=== PATIENT | female | born 1955 | race Caucasian/White ===

== ENCOUNTER → 2017-12-19 10:46 | Outpatient (CLI) | payer OTHER, SELFPAY ==
[2017-12-19 12:41] LABS: Alanine Aminotransferase 24 IU/L (9-52); Albumin 3.9 g/dL (3.5-5.0); Albumin Globulin Ratio 1.6 (1.0-2.8); Alkaline Phosphatase 59 U/L (38-126); Aspartate Aminotransferase 22 IU/L (14-36); BUN Creatinine Ratio 16.7 (6-22); Bilirubin Total 0.5 mg/dL (0.2-1.3); Blood Urea Nitrogen 15 mg/dL (7-17); Calcium 10.2 mg/dL (8.4-10.2); Carbon Dioxide 36 mmol/L (22-32); Chloride 99 mmol/L (98-107); Estimated Glomerular Filt Rate > 60.0 mL/min (>60); Globulin 2.5 g/dL (1.7-4.1); Glucose 81 mg/dL (80-110); HEMOLYSIS < 15 (0-50); Potassium 5.2 mmol/L (3.4-5.1); Sodium 142 mmol/L (137-145); Total Protein 6.4 g/dL (6.3-8.2)
== END ==
PROVIDERS: Visit Provider Physician Assistant
DX: L91.0 Hypertrophic scar (principal); B35.1 Tinea unguium
CPT/HCPCS: 36415; 80053

== ENCOUNTER → 2018-03-16 11:51 | Outpatient (CLI) | payer OTHER, SELFPAY ==
[2018-03-16 12:40] LABS: C-Reactive Protein Quant < 0.5 mg/dL (<1.0)
[2018-03-16 12:41] LABS: Erythrocyte Sedimentation Rate 7 MM/HR (0-20)
== END ==
PROVIDERS: PCP Internal Medicine; Visit Provider Internal Medicine Rheumatology
DX: M79.18 Myalgia, other site (principal)
CPT/HCPCS: 36415; 85651; 86140

== ENCOUNTER → 2018-04-04 10:46 | Outpatient (CLI) | payer OTHER, SELFPAY ==
[2018-04-04 11:53] LABS: Erythrocyte Sedimentation Rate 8 MM/HR (0-20)
[2018-04-04 12:13] LABS: C-Reactive Protein Quant < 0.5 mg/dL (<1.0); Estimated Glomerular Filt Rate > 60.0 mL/min (>60)
== END ==
PROVIDERS: PCP Internal Medicine; Visit Provider Internal Medicine Rheumatology
DX: M79.18 Myalgia, other site (principal)
CPT/HCPCS: 36415; 82565; 85651; 86140

== ENCOUNTER → 2018-04-06 09:46 | Outpatient (CLI) | payer OTHER, SELFPAY ==
--- NOTE | 2018-04-06 | DI.MRI.S_ITS ---
PROCEDURE: MR SHOULDER RT WO/W CON INDICATIONS: IDIOPATHIC CHRONIC GOUT OF SHOULDER. Right shoulder pain radiating down arm TECHNIQUE: Noncontrast oblique coronal T1 spin echo and T2 fast spin echo with fat saturation, oblique sagittal T1 spin echo and T2 fast spin echo with fat saturation, axial T1 spin echo and T2 fast spin echo with fat saturation through the shoulder. Post-contrast oblique coronal, oblique sagittal, and axial T1 spin echo with fat saturation through the shoulder. COMPARISON: None. FINDINGS: Image quality: Excellent. Rotator cuff: There is tendinosis and moderate grade articular surface partial-thickness tear involving distal supraspinatus at its insertion on humeral head extending to the musculotendinous junction. Focal areas of full-thickness perforation involving the anterior fibers of the supraspinatus is also likely present. Tendinosis and low to moderate grade articular surface partial thickness involving distal infraspinatus is seen. Tendinosis and moderate grade partial-thickness involving superior to mid fibers of the subscapularis is seen. There is mild supraspinatus muscle atrophy. Bones and bursae: No suspicious bone marrow enhancement. No bone marrow contusions or fractures. Moderate acromioclavicular joint and glenohumeral joint osteoarthritic changes are seen with joint space narrowing and prominent marginal osteophyte formation compressing the musculotendinous junction of supraspinatus. Small to moderate amount of subacromial subdeltoid bursal fluid and glenohumeral joint fluid is seen. No gross bony erosive changes are noted. No intra-articular loose body is seen. Capsule and soft tissues: No suspicious soft tissue enhancement. In the absence of intra-articular contrast, there is suggestion of superior anterior labral tear at 12 to 2:00 position. The glenohumeral ligaments appear intact. The long head of the biceps tendon demonstrates normal location and morphology. The rotator interval appears normal, without fibrosis. The coracohumeral ligament is normal in thickness. IMPRESSION: 1. Tendinosis and moderate grade articular surface partial-thickness tear involving distal supraspinatus at its insertion on humeral head extending to musculotendinous junction. A focal full-thickness perforation involving most anterior fibers of distal supraspinatus is also likely present. Mild supraspinatus muscle atrophy. 2. Tendinosis and low-grade articular surface partial-thickness involving distal infraspinatus. Moderate grade partial-thickness tear involving the superior to mid fibers of distal subscapularis. 3. Moderate acromioclavicular joint and glenohumeral joint osteoarthritis. No fracture or dislocation. No gross bony erosive changes. Small amount of joint effusion, no gross loose body. 4. Suggestion of superior anterior labral tear at 12 to 2:00 position. Dictated by: Kaleb Irby M.D. on 04/06/2018 at 13:48 Approved by: Kaleb Irby M.D. on 04/06/2018 at 13:58
== END ==
PROVIDERS: PCP Internal Medicine; Visit Provider Internal Medicine Rheumatology
DX: M10.011 Idiopathic gout, right shoulder (principal); M25.511 Pain in right shoulder; M75.111 Incomplete rotator cuff tear or rupture of right shoulder, not specified as traumatic; M19.011 Primary osteoarthritis, right shoulder
CPT/HCPCS: 73223; A9579

== ENCOUNTER → 2018-07-12 10:59 | Outpatient (CLI) | payer OTHER, SELFPAY ==
--- NOTE | 2018-07-12 | DI.RAD.S_ITS ---
PROCEDURE: XR THORACIC SPINE 2V INDICATIONS: NECK PAIN TECHNIQUE: 3 views of the thoracic spine were acquired. COMPARISON: None. FINDINGS: Bones: No fractures or dislocations. No suspicious bony lesions. 12 pairs of ribs are noted, and appear intact where visualized. Soft tissues: No paravertebral stripe thickening. IMPRESSION: Mild degenerative disc disease along the thoracic spine but no fracture or subluxation is seen. No compression fracture is found that would indicate an old injury. Dictated by: Alexander Bruner M.D. on 07/12/2018 at 13:14 Approved by: Alexander Bruner M.D. on 07/12/2018 at 13:18
--- NOTE | 2018-07-12 | DI.RAD.S_ITS ---
PROCEDURE: XR CERVICAL SPINE 2V OR 3V INDICATIONS: NECK PAIN TECHNIQUE: 3 view(s) of the cervical spine were acquired. COMPARISON: None. FINDINGS: Bones: No fractures or dislocations to the T1 level. The lateral masses of C1 appear intact on the odontoid view. No suspicious bony lesions. Note is made of C4-5 and especially C5-6 degenerative disc disease with anterior and posterior projecting osteophytes. A mild to moderate degree of such degeneration is seen at C6-7 also. Soft tissues: No prevertebral soft tissue swelling. IMPRESSION: Mild to moderately severe degenerative disc disease is present from C4-C7, most pronounced at C5-6. No subluxation is associated. Dictated by: Alexander Bruner M.D. on 07/12/2018 at 13:13 Approved by: Alexander Bruner M.D. on 07/12/2018 at 13:14
== END ==
PROVIDERS: PCP Internal Medicine; Visit Provider Internal Medicine
DX: M50.321 Other cervical disc degeneration at C4-C5 level (principal); M51.34 Other intervertebral disc degeneration, thoracic region
CPT/HCPCS: 72040; 72070

== ENCOUNTER → 2018-08-30 12:31 | Outpatient (CLI) | payer OTHER, SELFPAY ==
--- NOTE | 2018-08-30 | DI.MG.S_ITS ---
BILATERAL DIGITAL SCREENING MAMMOGRAM 3D/2D WITH CAD: 08/30/2018 CLINICAL: Routine screening. Comparison is made to exams dated: 03/11/2017 mammogram, 03/27/2015 mammogram, and 06/14/2013 mammogram - [facility]. There are scattered fibroglandular elements in both breasts. Current study was also evaluated with a Computer Aided Detection (CAD) system. No significant masses, calcifications, or other findings are seen in either breast. There has been no significant interval change. IMPRESSION: NEGATIVE There is no mammographic evidence of malignancy. A 1 year screening mammogram is recommended. This exam was interpreted at Station ID: [id number]. NOTE: For mammograms, a report in lay terms will be sent to the patient. Approximately 15% of breast malignancies will not be visualized mammographically. In the management of a palpable breast mass, a negative mammogram must not discourage biopsy of a clinically suspicious lesion. Electronically Signed By: Myles kumar/crow:08/31/2018 12:28:01 letter sent: Normal Exam ACR BI-RADS Category 1: Negative [id number]
== END ==
PROVIDERS: PCP Internal Medicine; Visit Provider Internal Medicine
DX: Z12.31 Encounter for screening mammogram for malignant neoplasm of breast (principal)
CPT/HCPCS: 77063; 77067

== ENCOUNTER → 2019-12-06 11:17 | Outpatient (CLI) | payer OTHER, SELFPAY ==
--- NOTE | 2019-12-06 11:22 | DI.RAD.S_ITS ---
PROCEDURE: XR FEMUR LT MIN 2V INDICATIONS: left hip pain TECHNIQUE: 4 views of the femur were acquired. COMPARISON: None. FINDINGS: Bones: No fractures or dislocations. No suspicious bony lesions. Moderate left hip joint degeneration. Lower lumbar spondylosis. Soft tissues: No suspicious soft tissue calcifications or masses. IMPRESSION: Moderate left hip joint degeneration Dictated by: Sanchez Olguin M.D. on 12/06/2019 at 14:11 Approved by: Sanchez Olguin M.D. on 12/06/2019 at 14:12
[2019-12-06 12:19] LABS: Alanine Aminotransferase 19 IU/L (<35); Albumin 3.9 g/dL (3.5-5.0); Albumin Globulin Ratio 1.5 (1.0-2.8); Alkaline Phosphatase 53 U/L (38-126); Aspartate Aminotransferase 27 IU/L (14-36); Bilirubin Total 0.4 mg/dL (0.2-1.3); Blood Urea Nitrogen 20 mg/dL (7-17); Calcium 9.2 mg/dL (8.4-10.2); Carbon Dioxide 34 mmol/L (22-32); Chloride 105 mmol/L (98-107); Estimated Glomerular Filt Rate > 60.0 mL/min (>60); Globulin 2.6 g/dL (1.7-4.1); Glucose 82 mg/dL (80-110); HEMOLYSIS < 15 (0-50); Potassium 4.1 mmol/L (3.4-5.1); Sodium 139 mmol/L (137-145); Total Protein 6.5 g/dL (6.3-8.2)
== END ==
PROVIDERS: PCP Registered Nurse; Referring Provider Registered Nurse; Visit Provider Registered Nurse
DX: M25.552 Pain in left hip (principal); M16.12 Unilateral primary osteoarthritis, left hip; E03.9 Hypothyroidism, unspecified; F32.9 Major depressive disorder, single episode, unspecified
CPT/HCPCS: 36415; 73552; 80053; 84443

== ENCOUNTER → 2020-02-01 12:01 | Outpatient (CLI) | payer OTHER, SELFPAY ==
[2020-02-01 13:20] LABS: Add Manual Diff / Slide Review NO; Basophils Absolute Auto 100 /uL (0-100); Basophils Percent Auto 0.8 % (0-2); Eosinophils Absolute Auto 300 /uL (0-450); Eosinophils Percent Auto 3.5 % (2-4); Hematocrit 39.2 % (36-46); Hemoglobin 13.1 g/dL (12.0-16.0); Lymphocytes Absolute Auto 2000 /uL (1100-4500); Lymphocytes Percent Auto 27.7 % (25-40); Mean Corpuscular HGB Conc 33.5 % (30-36); Mean Corpuscular Hemoglobin 31.2 PG (26-34); Mean Corpuscular Volume 93.1 fL (80-100); Monocytes Absolute Auto 600 /uL (0-900); Neutrophils Absolute Auto 4300 /uL (1500-7000); Platelet Count 258 X10^3/uL (150-400); Red Blood Cell Count 4.21 X10^6/uL (4.0-5.2); Red Cell Distribution Width 13.3 % (11.6-14.8); White Blood Cell Count 7.2 X10^3/uL (4.5-11.0)
[2020-02-01 13:33] LABS: Hemoglobin A1C% w Est Avg Glu 5.6 % (4.0-6.0)
[2020-02-01 13:37] LABS: BUN Creatinine Ratio 16.9 (6-22); Blood Urea Nitrogen 15 mg/dL (7-17); Calcium 9.1 mg/dL (8.4-10.2); Carbon Dioxide 32 mmol/L (22-32); Chloride 105 mmol/L (98-107); Estimated Glomerular Filt Rate > 60.0 mL/min (>60); Glucose 85 mg/dL (80-110); HEMOLYSIS < 15 (0-50); Potassium 4.5 mmol/L (3.4-5.1); Sodium 139 mmol/L (137-145)
== END ==
PROVIDERS: PCP Registered Nurse; Referring Provider Orthopaedic Surgery Adult Reconstructive Orthopaedic Surgery; Visit Provider Orthopaedic Surgery Adult Reconstructive Orthopaedic Surgery
DX: Z01.818 Encounter for other preprocedural examination (principal); Z01.812 Encounter for preprocedural laboratory examination; R73.9 Hyperglycemia, unspecified
CPT/HCPCS: 36415; 80048; 83036; 85025; 93005

== ENCOUNTER → 2020-02-23 13:19 | Outpatient (CLI) | payer OTHER, SELFPAY ==
[2020-02-23 14:41] LABS: COVID19 -Nasal RAPID Negative (Negative)
== END ==
PROVIDERS: PCP Registered Nurse; Visit Provider Nurse Practitioner
DX: Z11.59 Encounter for screening for other viral diseases (principal)
CPT/HCPCS: 87635

== ENCOUNTER 2020-02-25 09:10 | Day surgery (SDC) | payer OTHER, SELFPAY ==
[2020-02-14 11:56] VITALS: BMI 28.8
[2020-02-25] VITALS (22 sets, daily range): BP systolic 83–125; BP diastolic 46–85; PULSE 70–93; RESP 12–20; TEMP 35.1–37.2; O2SAT 97–100; BMI 28.8
--- NOTE | 2020-02-25 | DI.RAD.S_ITS ---
PROCEDURE: XR HIP LT 1V INDICATIONS: INNER OP HIP TECHNIQUE: Fluoroscopic images were obtained during an operative procedure and submitted for interpretation following the completion of the procedure. COMPARISON: [facility], , XR PELVIS 1-2V, 02/25/2020, 13:45. FINDINGS: These fluoroscopic images were performed for intraoperative localization. On these images, left hip arthroplasty hardware is seen. Please correlate with intraoperative findings. IMPRESSION: Normal intraoperative examination. Dictated by: Conrad Andres M.D. on 02/25/2020 at 14:53 Approved by: Conrad Andres M.D. on 02/25/2020 at 14:55
--- NOTE | 2020-02-25 06:00 | DI.RAD.S_ITS ---
PROCEDURE: XR PELVIS 1-2V INDICATIONS: post op films TECHNIQUE: 1 view of the lower pelvis acquired. COMPARISON: None. FINDINGS: Bones: Patient is status post left hip arthroplasty, with hardware components in expected positions. The hip joint appears congruent. The visualized bony structures appear intact. Soft tissues: Overlying postoperative changes are noted. No suspicious soft tissue densities. IMPRESSION: Expected appearance of left hip arthroplasty. Dictated by: Patti Ivan M.D. on 02/25/2020 at 14:05 Approved by: Patti Ivan M.D. on 02/25/2020 at 14:06
[2020-02-25] MEDS: PREGABALIN 75 MG CAPSULE PO (10:02)
[2020-02-25] MEDS: CELECOXIB 200 MG CAPSULE PO (10:02)
[2020-02-25] MEDS: ACETAMINOPHEN 325 MG TABLET 975 MG PO (10:02)
[2020-02-25] MEDS: LACTATED RINGERS 1,000 ML 42 ML IV ×2 (10:02→11:31)
--- NOTE | 2020-02-25 10:18 | PM.PREOP ---
Pre-operative Note COVID-19 COVID-19 status: Negative Result date/Date tested (Pos, Neg/Pending): 02/23/20 Interval Note History & Physical reviewed/Exam performed by Physician: Yes Changes to H&P: No H&P completed within 30 days and has changed as indicated here:: Plan for left anterior LEONCIO
[2020-02-25] MEDS: CEFAZOLIN 2 GM/100 ML FROZ.PIGGY IV ×2 (10:49→19:38)
[2020-02-25] MEDS: TRANEXAMIC ACID 1,000 MG VIAL 1000 MG INJ ×2 (11:11→12:23)
--- NOTE | 2020-02-25 11:36 | SUR.OPER ---
Supine on padded [place] table with bilateral legs secured in padded positioning boots and suspended in positioning spars, operative leg in traction per surgeon. Head on one pillow. Arm on non-operative side secured on padded armboard <90 degrees abduction. Arm on operative side padded and resting across chest then secured with tape over sheet. Padded perineal post in place per surgeon.
[2020-02-25] MEDS: ROPIVACAINE 0.5% PF 5 MG/ML 20ML VIAL 60 ML INJ (11:43)
[2020-02-25] MEDS: MORPHINE 4 MG/ML INJ INJ (11:44)
[2020-02-25] MEDS: KETOROLAC 30 MG/ML VIAL IV (11:44)
[2020-02-25] MEDS: SODIUM CHLORIDE IRRIG SOLUTION 250 ML, POVIDONE-IODINE SPONGE STICKS 1 APPLIC IRR (12:26)
--- NOTE | 2020-02-25 12:43 | PM.OP.1 ---
Operative Date/Time/Diagnoses Date of procedure: 02/25/20 Time of procedure: 12:43 Pre-op diagnosis: right hip OA Post-op diagnosis: same Procedure & Clinicians Procedure: right anteriot LEONCIO Same procedure as scheduled: Yes Indications: Right hip osteoarthritis resistant to further conservative care Surgeon: Javier Nielsen Manager Program: John Neil Anesthesia Type: Spinal and Sedation Operative Notes Findings: Left hip osteoarthritis with medial osteophyte Closure Type: primary Prosthetic devices, grafts, tissues, transplants, or devices: Vivas and nephew 50 mm R3 cup 2x 25mm screws 50 mm x 32 mm neutral acetabular liner Size 7 standard offset anthology stem 32 mm +4 Biolox head Estimated Blood Loss (mL): 350 Procedure in detail: Patient was met in the preoperative holding area where the site and side of surgery were marked by . Informed consent had been reviewed and signed in clinic but was also reviewed in the preop holding area. All last minute questions were answered. Patient was then brought back into the operating room where she was transferred onto the [place] table after receiving a spinal anesthetic. Both feet were then placed in well-padded on the table boots and the left lower extremity was then prepped and draped in normal sterile fashion. A surgical time-out was performed verifying the site and side of surgery as well as the name of the patient. A 6 cm long incision starting approximately 2 cm distal and 1 cm lateral to the ASIS was made in the skin aiming towards the fibular head with a 10. Blade. Electrocautery was then used to dissect down to the level of the tensor fascia. A new 10. Blade was then used to incise the tensor fascia. A Allis clamp was placed on the medial leaflet of the tensor fascia. The tensor muscle itself was then reflected laterally and a Meyerding was used to retract the rectus femoris medially. This gave us good exposure to the ascending circumflex femoral vessels which were coagulated. A Cobra was then placed over the superior aspect of the femoral neck and a 2nd Cobra was placed into the inferior aspect of the femoral neck. A bent Hohmann was then placed over the anterior lip of the acetabulum giving us good capsular exposure. An inverted T-shaped capsulotomy was then performed. FiberWire stitch was placed in the superior and inferior leaflet and cobras were then placed intracapsularly. This gave us good femoral neck exposure. A reciprocating saw was then used to make the femoral neck cut the head was then removed using a corkscrew. The soft tissue protector sleeve was then placed into the wound and retractor was then replaced to give us good acetabular exposure. A [place] blade was then used to remove the labrum followed by electrocautery used to remove the pulp in our. I began reaming with a 42 mm Reamer to medialized down to the base of the colloid fossa. At this point fluoroscopy was brought in and subsequent reaming was performed under fluoroscopic guidance upsizing by 2s as we went until we got to a size 48 mm Reamer which seemed to have good fit then reamed 1 more to 49 and selected a 50 mm R3 cup. This was impacted into place under fluoroscopic guidance and 2 screws were then placed. The neutral offset 50 mm x 32 mm polyethylene liner was then impacted into place and the patient was used to confirm that all tabs were flushed with the acetabular rim. At this point we turned our attention the femoral side the femur was brought into neutral rotation and a femoral elevator hook was placed on the posterior aspect of the femur the femur was then externally rotated to 120? extended to the floor and adducted. A Orozco retractor was then placed over the calcar and a bent Hohmann was placed over the superior aspect of the superior leaflet of the capsulotomy the capsule was then released from the inner portion of the greater trochanter giving us good exposure of the short external rotators. A large single prong retractor was then placed over the greater trochanter a partial release of the short external rotators was performed. We then began with a canal finer followed by chong [place] and then we began broaching starting with a size 1 and going up by 1 until we got to a size 6. Then placed a standard offset neck with a 32+ 0 head and reduced the hip the hip was stable to 120? of external rotation as well as 90? of external rotation extension to the floor. Fluoroscopy was brought in to confirm leg lengths. We appeared 5-6 mm short on operative side. Also clear that we filled up 1 stem size on the femoral side. The hip was then reduced the trial components were then removed and I broach to a size 7. I then selected a size 7 standard offset anthology stem this was then impacted into place. A 30 2+4 Biolox head was then selected and placed onto the trunnion malleted into place. The hip was then reduced a final time and again found to be stable through range of motion. Local anesthetic was then infiltrated into the capsulotomy as well as the periarticular soft tissues. Betadine solution was then allowed to soak it in the wound while final fluoroscopic images were taken the Betadine solution was then lavage away with copious normal saline. I then closed the capsulotomy with a running Ethibond suture in the FiberWire tag sutures were then removed. The tensor fascia was then repaired with an 0 Vicryl in running locking fashion followed by 2 Vicryl in the subcutaneous layer followed by 3-0 Stratafix and Aquacel dressing. Complications: none Post-operative Condition: stable Disposition: PACU Plan for aftercare: Weightbearing as tolerated left lower extremity, aspirin 81 mg b.i.d. for 6 weeks for DVT prophylaxis, 24 hours postop antibiotics
[2020-02-25] MEDS: LACTATED RINGERS 1,000 ML 125 ML IV ×2 (14:08→23:03)
--- NOTE | 2020-02-25 14:26 | PC.NURSE ---
Patient alert, oriented denies pain and nausea. CMS+ LLE, dressing intact. Oriented to room and call light. Last void was at 1000 before surgery.
[2020-02-25] MEDS: ACETAMINOPHEN 325 MG TABLET 650 MG PO ×2 (14:40→22:18)
[2020-02-25 15:37] LABS: Add Manual Diff / Slide Review NO; Basophils Absolute Auto 100 /uL (0-100); Basophils Percent Auto 0.4 % (0-2); Eosinophils Absolute Auto 300 /uL (0-450); Hematocrit 33.4 % (36-46); Hemoglobin 10.9 g/dL (12.0-16.0); Lymphocytes Absolute Auto 2100 /uL (1100-4500); Lymphocytes Percent Auto 15.7 % (25-40); Mean Corpuscular HGB Conc 32.7 % (30-36); Mean Corpuscular Hemoglobin 30.7 PG (26-34); Monocytes Absolute Auto 1000 /uL (0-900); Monocytes Percent Auto 7.2 % (3-14); Neutrophils Absolute Auto 10000 /uL (1500-7000); Neutrophils Percent Auto 74.7 % (50-75); Platelet Count 238 X10^3/uL (150-400); Red Blood Cell Count 3.55 X10^6/uL (4.0-5.2); Red Cell Distribution Width 13.4 % (11.6-14.8); White Blood Cell Count 13.4 X10^3/uL (4.5-11.0)
--- NOTE | 2020-02-25 16:48 | PT-IP ANOTE ---
Called Nursing regarding performing PT Eval at 1648. Nursing stated pt has been symptomatic and hypotensive in sitting, with BP around 90/50. Nurse and therapist in agreement to hold off on eval for tonight.
[2020-02-25] MEDS: DOCUSATE 100 MG CAPSULE PO (22:18)
[2020-02-25] MEDS: ASPIRIN EC 81 MG TABLET PO (22:18)
--- NOTE | 2020-02-25 23:38 | PC.NURSE ---
Evening note: Merlene had a good night, denies pain to LLE, rohit remains CDI. At 1530 reported dizziness when she sat up, resolving after she laid flat. Refused dinner at 1700, then at 1930 ate most of a vegatable plate. While eating meal I was talking with her and after she took bite of food had spontaneous emesis of approx 200 ml. Afterward emesis she denied any nausea. Still no void. Bladder scan at 1944 = 118 ml. [place] [facility] [place], while sitting up said I'm going to be sick, had small amt of emesis at that time. Denies dizziness upon standing or transfering back to bed. BP still 90's/50's. Still no void, bladder scan = [address] Yancey of patient's anuria and bladder scan results, no new orders given.
--- NOTE | 2020-02-26 01:29 | PC.NURSE ---
Addendum entered by Liza Camarillo R.N. 02/26/20 05:55: States pain is achy 10 this morning so medicated with Oxycodone and ice applied to hip. Did urinate earlier 450cc. Addendum entered by Liza Camarillo R.N. 02/26/20 03:39: Up to BSC with walker and 1 assist; moving well. Once sitting on commode became nauseated and had approx 75cc emesis; medicated with Zofran. Original Note: 0058 patient assessed. Is alert and oriented. Breath sounds CTA with RA sat of 98%. HRR. Denies nausea but did have nausea/emesis on previous shift. BT present but denies flatus as yet. Has not voided since return from surgery but last bladder scan at 2235 showing only 243cc in bladder and patient denies feeling urge to void. Is able to turn with minimal assist. Gait not assessed but was reportedly up to BSC on previous shift with walker and 1 assist. CMS is intact. Aquacel dressing to anterior left hip is CDI. Wearing bilateral calf SCD's. Fall risk score is moderate and bed alarm is activated. Denies pain at this time.
[2020-02-26] MEDS: CEFAZOLIN 2 GM/100 ML FROZ.PIGGY IV (02:44)
[2020-02-26] MEDS: ONDANSETRON 4 MG/2 ML INJ IV (03:37)
[2020-02-26 03:50] VITALS: BP 103/62; PULSE 82; RESP 16; TEMP 36.5; O2SAT 100
[2020-02-26] MEDS: LEVOTHYROXINE 100 MCG TABLET PO (05:53)
[2020-02-26] MEDS: OXYCODONE IR 5 MG TABLET PO (05:53)
[2020-02-26 05:57] LABS: Hematocrit 29.6 % (36-46); Hemoglobin 9.9 g/dL (12.0-16.0)
[2020-02-26] MEDS: LACTATED RINGERS 1,000 ML 125 ML IV (06:43)
--- NOTE | 2020-02-26 07:32 | PM.PNPO.1 ---
Subjective Subjective Date Patient Seen: 02/26/20 Time Patient Seen: 07:32 Interval history: POD #1 s/p left total hip arthroplasty with Dr. Nielsen. Patient had significant vomiting after surgery whenever she would sit up. She is feeling better this morning. She has not been up therapy. Pain is well controlled. Exam Vital Signs (past 8 hours): - 02/25/20 23:55 02/26/20 03:50 Temperature 98.9 F 97.7 F Pulse Rate 74 82 Respiratory Rate 12 16 Blood Pressure 104/67 103/62 Pulse Oximetry 98 100 Oxygen Delivery Method Room Air Oxygen Flow Rate 0 Narrative Exam Narrative: Patient lying in bed no acute distress. She is alert and oriented x3. Calves are soft, compressible nontender bilaterally. SCDs on and functioning. Dressing on left hip is CDI. She is able to actively dorsiflex plantar flex. Sensation intact light touch throughout bilateral lower extremities. Dorsalis pedis pulses 2+. Objective Labs Result Diagrams: 02/26/20 05:43 Labs: Laboratory Results - last 24 hr 02/25/20 02/26/20 15:29 05:43 WBC 13.4 H RBC 3.55 L Hgb 10.9 L 9.9 L Hct 33.4 L 29.6 L MCV 94.0 MCH 30.7 MCHC 32.7 RDW 13.4 Plt Count 238 Neut % (Auto) 74.7 Lymph % (Auto) 15.7 L [place] % (Auto) 7.2 Eos % (Auto) 2.0 Baso % (Auto) 0.4 Neut # (Auto) 38297 H Lymph # (Auto) 2100 [place] # (Auto) 1000 H Eos # (Auto) 300 Baso # (Auto) 100 PFSH Medical History Concussion (2015) Easy bruisability Hypothyroidism Ocular rosacea Osteoarthritis Surgical History History of tonsillectomy [place] teeth removed Family History Mother Congestive heart failure Father Aneurysm Alcoholism Social History household members: significant other Smoking Status: Former smoker alcohol intake: former Assessment & Plan Post-op Postoperative Procedures: Procedures Operation Date: 02/25/20 10:45 Actual Procedures Side Surgeon p Total Hip Arthroplasty/Anterior Approach Left Javier Nielsen MD Patient will mobilize with physical therapy today. She will likely need Zofran for home. Continue current pain control. If patient is mobilizing safely with adequate pain control she can go home today.
[2020-02-26 08:16] VITALS: BP 93/73; PULSE 86; RESP 16; TEMP 36.3; O2SAT 100
[2020-02-26] MEDS: ASPIRIN EC 81 MG TABLET PO (08:16)
[2020-02-26] MEDS: buPROPion XL 150 MG TAB 300 MG PO (08:16)
[2020-02-26] MEDS: HYDROCODONE/ACET 5/325 TABLET 1 TAB PO ×2 (08:16→11:27)
[2020-02-26] MEDS: CITALOPRAM 10 MG TABLET 40 MG PO (08:16)
[2020-02-26] MEDS: DOCUSATE 100 MG CAPSULE PO (08:16)
[2020-02-26] MEDS: ACETAMINOPHEN 325 MG TABLET 650 MG PO (08:16)
[2020-02-26] MEDS: INFLUENZA VACCINE 0.5 ML SYRINGE IM (08:17)
[2020-02-26] MEDS: FLUOROMETHOLONE ACETATE 1 EACH EYE-BOTH (08:18)
--- NOTE | 2020-02-26 08:29 | PC.NURSE ---
Addendum entered by Shaylee Wong R.N. 02/26/20 13:22: Went over dc instructions and medications with patient, rx given. Questions answered. Patient taken via WC to vehicle driven by spouse, patient had all belongings. Original Note: Patient alert,oriented rates pain to left hip 5/10. Given 1 tab hydrocodone. Patient up to BSC to void, voided 450cc. No nausea or emesis with ambulation. Ate 50% of meal.
[2020-02-26 08:45] VITALS: PULSE 65; RESP 16; O2SAT 100
--- NOTE | 2020-02-26 08:58 | CM.DANOTE ---
DCP/Assessment: Reviewed chart. Patient is a 64yr old female admitted to [facility] for elective left LEONCIO performed on 02-[address] Nielsen. Patient currently without PCP. Patient previously seen at [facility] before they closed. Primary payor is 1)[facility]. Met with patient explained CM/SW role. Patient reports that she hopes to d/c home later today. Patient reports that she has all needed DME in the residence. Patient planning to do outpatient therapy at [facility] beginning next week. Therapy evaluation currently pending. P: Anticipate home today. LUCERO Michaels Discharge Planning/Care Management CM Discharge Assessment Start: 02/26/20 08:54 Freq: Status: Active Protocol: Document 02/26/20 08:55 KJS (Rec: 02/26/20 08:58 KJS [id number]) Discharge Planning Assessment Assigned Fare Register Repairer LUCERO Michaels Contact Information Jaylan Edmondson (significant other) # [phone] Advance Directives? No History Provided By Patient,Medical Record Prior Living Arrangements House Household Members significant other Type of transporation used prior to Drives own vehicle admit Independent with ADL's Yes Is patient alert and oriented? Yes Caregiver for Another No DME Already Rented / Owned FWW / Walker,Cane Patient/Family Preference OP PT Therapy Barriers to Discharge No Discharge Plan Home Transportation Arrangement Family/significant other can provide transport. Referrals Initiated None needed Whiteboard Updated in Patient Room with Yes name and ext. # of Fare Register Repairer Review Status In Process Next Review Type Continued Stay Review Pre-Anesthesia Assessment Start: 02/14/20 11:56 Freq: Status: Complete Protocol: Document 02/14/20 11:56 CAB (Rec: 02/14/20 12:36 CAB [id number]) Pre-Anesthesia Assessment Patient Information Reviewed Via Phone Assessment Assessment Completed With Patient Diagnostic Results BMP/CMP,CBC,EKG Comment Labs/EKG @ [facility], COVID pt needs to call to schedule Primary Care Provider Prasanna Amado Seen Specialist in Last 12 Months Yes Specialist Seen Orthopedist Primary Language Divehi Livestock Nutrition Territory Manager Required No Height 160.02 cm Weight 73.936 kg Body Mass Index (BMI) 28.8 Hearing Ability Normal Visual Assist Glasses Dentition Type Teeth, Natural Present Barriers to Learning None Hx Anesthesia Reactions No Hx Family Anesthesia Reaction No Hx Malignant Hyperthermia No Hx Blood Transfusions No Anesthesia Review Requested No alcohol intake former Smoking Status Former smoker Tobacco type cigarettes how long ago did patient quit smoking Quit 1994 Substance Use Type marijuana Comment Pt advised not to smoke marijuana 24 hours prior to surgery Pain Present Pain Reported Musculoskeletal Symptoms Abnormal Gait,Arthralgias, Difficulty Walking,Joint Pain, Myalgias History of Falling (Recent or History of Yes ) Patient is completely paralyzed or No completely immobile Mental Status Oriented to own ability Is patient on oxygen? No Does patient have MENDEZ/SOB No Hx Sleep Apnea No Currently Taking a Beta Sydni No Can You Climb a Flight of Stairs Without Yes SOB Hx Chest Pain No Hx SOB No Hx Syncope or Dizziness No Anti-Coagulant Therapy No Has a Nurses' Association Executive Director No Cardiac Testing No Hx Pacemaker/ICD No Pacemaker Rep Required? No Cardiac Clearance Received Not Applicable Diet Type At Home Regular dysphagia No Gastrointestinal Symptoms Constipation Urinary Catheter Present No Hx Urinary Self Catheterization No Diabetes No Patient No Lactating No Hx Drug Resistant Organism No Presence of External or Internal Medical No Devices Have you had any close contact with No someone diagnosed with COVID-19? Marital Status Single Lives With significant other Prior Living Arrangements House Number of Floors (Floors) Two Floors Support System Significant Other Does the Patient Have Assistance After Yes Surgery Patient Discharge Plan Description Return Home Comment Pt advised overnight length of stay per surgeon Feels Safe in Current Environment Yes Been Physically Hurt or Threatened By a No Person in Current Environment Do you have thoughts of harming yourself None or others? Are you currently considering suicide? No Do you have a plan to hurt yourself or No Plan others? Do You Have Any Spiritual Beliefs That No May Affect Your HC Choices? Do You Have Any Cultural Practices That No May Affect Your HC Choices? Comment Dank Who Can We Speak to About Patient's Care Family, friends Identifying Code for Release of Patient Declines to issue Information Health Care Proxy/Next of Kin Jaylan (S.Trupti.) Health Care Proxy Emergency Contact Name Jaylan Navarrete) Emergency Contact Advance Directives? No Power of Radio Dispatcher No PAC Instructions Do not shave/clip surgical site,Durable medical equipment ,Medications to take/avoid, Nasal antibiotic,No ETOH/ petroleum product on skin DOS, NPO,Post-op transportation,Pre -surgical wash,Sensory aids, Sturdy shoes/comfortable clothes,Do not bring valuables and remove jewelry
--- NOTE | 2020-02-26 09:22 | PT.IIE ---
Current Diagnoses Unilateral primary osteoarthritis, left hip (02/25/20) Surgery Performed Operation Date: 02/25/20 10:45 Actual Procedures p Total Hip Arthroplasty/Anterior Approach(Left) - Javier Nielsen MD Surgical History (Last Reviewed 02/26/20 @ 09:25 by Veda Jim PA-C) History of tonsillectomy [place] teeth removed Medical History (Last Reviewed 02/26/20 @ 09:25 by Veda Jim PA-C) Concussion (2014) Easy bruisability Hypothyroidism Ocular rosacea Osteoarthritis Physical Therapy Inpatient Evaluation/Re-Eval M1 PT/OT-IP Prior Functional Status Start: 02/26/20 12:10 Freq: NEEDED Status: Active Protocol: Document 02/26/20 09:22 AB (Rec: 02/26/20 12:25 AB [id number]) Medical Review Prior Functional Status Medical History Reviewed Yes Communication able to make needs known Mobility and Gait stated that she is independent with all mobilities and ambulation without AD Social History Household Members significant other Living Arrangements House Number of Floors (Floors) Two Floors Number of Stairs To Enter/Railing? 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 [employer] M2 PT-IP Current Condition Start: 02/26/20 12:10 Freq: NEEDED Status: Active Protocol: Document 02/26/20 09:22 AB (Rec: 02/26/20 12:25 AB [id number]) Physical Therapy Current Condition Current Condition Evaluation Date 02/26/20 Treatment Diagnosis s/p L LEONCIO anterior approach; difficulty in walking Onset Date 02/25/20 Precautions Anterior Hip Precautions No Hip Extension,No Hip External Rotation Weight Bearing Status Weight Bearing Status Weight Bear as Tolerated Allowed Weight Bearing Amount (enter % LLE WBAT or #) (%) M3 PT-IP Subjective Start: 02/26/20 12:10 Freq: NEEDED Status: Active Protocol: Document 02/26/20 09:22 AB (Rec: 02/26/20 12:25 AB [id number]) Subjective Physical Therapy Visit Type Type Initial Evaluation Visit Start Time 09:22 Visit Stop Time 10:06 Total Visit Minutes 44 Number of REST ROOM MAID Visits 0 Physical Therapy Visit Comments Patient Comments pt is agreeable to do PT Therapy Pain Assessment Pain When Pain Assessed At Rest Pain Present Pain Present Pain Reported Location Left Hip Intensity 2 Scale Used Numeric (0 - 10) Pain Management Techniques Distraction,Modification of Treatment,Re-positioning, Timing of Activity with Medications M4 PT-IP Mobility and Gait Start: 02/26/20 12:10 Freq: NEEDED Status: Active Protocol: Document 02/26/20 09:22 (Rec: 02/26/20 12:25 [id number]) PT-Bed Mobility Assessment Supine to Sit Supine to Sit Standby Assistance PT-Transfer Assessment Sit to and From Stand Sit to and from Stand Standby Assistance Equipment Transfer Assistive Device Gait Belt,Front Wheeled Walker Orthotic/Prosthetic Devices or Brace: No Transfers Transfer Destination Chair Transfer Technique ambulated using FWW Transfer Ability Level of Assist Standby Assistance,Contact Guard Assistance,Use of Upper Extremities Comments Mobility Comments educated pt on anterior hip precautions. BP supine: 113/63 . completed supine to sit SBA . BP in sittin/65 and pt without any complaints. completed sit to stand SBA and ambulated in room using FWW with initial CGA but after a few feet SBA. agreed to do more ambulation and stair climbing. completed ambulation in the hallway SBA and cues. completed up/down steps using 1 rail CGA. ambulated back to her room using FWW SBA. agreed to sit up on chair. positioned on chair. call light and table placed within reach. BP at the end of session: 95/64. Gait Assessment Gait Gait Assistance Required: Standby Assistance,Contact Guard Assist,1 Person Assist Distance (Feet) 100 Able to Maintain Weight Bearing Status Yes During Gait Assistive Devices Assistive Device Gait Belt,Front Wheeled Walker Orthotic/Prosthetic Devices or Brace: No Gait Deviations General Gait Pattern Antalgic,Decreased Feet Clearance Factors Limiting Gait Function Factors Limiting Gait Function Decreased Activity Tolerance, Decreased Strength,Limited Range of Motion,Pain,Poor Balance,Poor Safety Awareness Stair Climbing Assessment Evaluation Level of Assist On Stairs Contact Guard Assistance Devices Stair Climbing Assistive Devices Left Railing,Right Railing Technique/Endurance Stair Climbing Direction Ascend and Descend Stair Climbing Technique Step to Step Number of Steps Climbed 3 Query Text: Stair Climbing Set # Repetitions (reps) 3 PT-Balance Assessment Sitting Balance and Reactions Static Sitting Balance Ability Good Dynamic Sitting Balance Ability Good Standing Balance and Reactions Static Standing Balance Ability Fair Dynamic Standing Balance Ability Fair Device Used FWW M5 PT-IP Objective Assessments Start: 02/26/20 12:10 Freq: NEEDED Status: Active Protocol: Document 02/26/20 09:22 AB (Rec: 02/26/20 12:25 AB [id number]) Orientation Orientation/Cognition Level of Alertness Alert Orientation Name,Place,Situation Language Function Ability No Deficits Noted Safety Awareness Decreased Safety Awareness Memory Description Short Term Impaired Gross Range of Motion Lower Extremity ROM Assessment Within Functional Limits Strength Lower Extremity Strength Assessment Left Impaired Hip 4-/5 Muscle Tone Muscle Tone WNL Yes M6 PT-IP Treatment Start: 02/26/20 12:10 Freq: NEEDED Status: Active Protocol: Document 02/26/20 09:22 AB (Rec: 02/26/20 12:25 [facility] Therapy Treatment Education Education Provided Precautions,Weight Bearing Status,Post-Op Packet,Safety M7 PT-IP Assessment and Plan Start: 02/26/20 12:10 Freq: NEEDED Status: Active Protocol: Document 02/26/20 09:22 AB (Rec: 02/26/20 12:25 AB [id number]) PT Summary Assessment and Plan Potential Rehabilitation Potential Good Status of Condition at Evaluation Stable Summary Impairments Pain,ROM,Strength,Balance, Coordination,Sensation,Tone, Cognition,Bed Mobility, Transfers,Gait,Activity Tolerance Assessment Summary pt requiring SBA to CGA with mobility and plans to go home with her significant other to assist her. pt stated that she is set up for outpt PT. pt may go home when medically stable. Goals Bed Mobility Goal Independent Transfer Goal Independent,Front Wheeled Walker Gait Goal Independent,Front Wheel Walker Gait Distance 200 Other Goals up/down 6 steps L rail and 6 steps R rail SBA Days to Meet Goals 3 Frequency of Treatment Frequency Of Treatment Twice a Day Treatment Plan Physical Therapy Treatment Plan Bed Mobility Training,Transfer Training,Gait Training, Therapeutic Exercise,Balance Retraining,Post Op Education, Discharge Planning,Hot or Cold Pack,Neuromuscular Re-ed, Coordination Retraining,Manual Therapy Recommendations To Nursing Amount of Assist Needed 1 Person Assist Discharge Recommendations PT Discharge Recommendations Home with Assistance, Outpatient PT Transportation Needs at Discharge Private Vehicle
== END 2020-02-26 13:23 | disposition home or self-care (01) ==
LOC: OR 09:17 → AC 11:48
PROVIDERS: PCP Registered Nurse; Referring Provider Orthopaedic Surgery Adult Reconstructive Orthopaedic Surgery; Visit Provider Orthopaedic Surgery Adult Reconstructive Orthopaedic Surgery
PROC: (CPT 27130; principal; 2020-02-25 10:45)
DX: M16.12 Unilateral primary osteoarthritis, left hip (principal); Z23 Encounter for immunization; M25.752 Osteophyte, left hip
CPT/HCPCS: 27130; 36415; 72170; 73501; 76000; 85014; 85018; 85025; 90471; 90656; 97161; 97530; C1776; J0690; J1885; J2270; J2274; J2405; J2704; Q2038

== ENCOUNTER 2020-05-05 11:15 | Outpatient (RCR) | payer OTHER, SELFPAY ==
--- NOTE | 2020-02-11 15:36 | PT.OIE ---
Current Diagnoses Unilateral primary osteoarthritis, left hip (02/11/20) Past Medical History (Last Reviewed 12/06/19 @ 11:36 by JEFFERY Cole) Concussion (2015) Hypothyroidism Ocular rosacea Past Surgical History (Last Reviewed 12/06/19 @ 11:36 by JEFFERY Cole) History of tonsillectomy Visit Care Team Role Provider Type JEFFERY Cole Primary Care Provider [employer] Specialty: Medical Address: [address] [place] [address], [id number] Email: [email or web address] Javier Nielsen MD Attending Provider Physician Referring Provider Specialty: Orthopedic Surgery Address: [address] [place] [address], [id number] Email: [email or web address] [facility] Initial Evaluation PT-OP-A Visit Information Start: 02/11/20 07:31 Freq: Status: Active Protocol: Document 02/11/20 10:35 MB (Rec: 02/11/20 11:17 MB [id number]) Out-Patient Physical Therapy Visit Information Visit Information Visit Type Initial Evaluation Visit Note UM Visit Start Time 10:35 Visit Stop Time 11:20 Total Visit Minutes 45 Visit Number 1 Evaluation Information Evaluation Date 02/11/20 PT-OP-B Current Condition Start: 02/11/20 07:31 Freq: Status: Active Protocol: Document 02/11/20 10:35 MB (Rec: 02/11/20 11:17 MB [id number]) Current Condition History of Current Condition Onset Date Greater than 7 years ago Current Complaints Pain in left groin that throbs History of Current Condition Pt reports 7-8/10 left hip pain in anterior and posterior areas. 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 She is now able to use a pole for people to sign their credit card receipts after buying tickets. Pt has a history of left hip pain. She had PT and was told to turn her feet, which has helped the pain. She has to walk far to the bathroom and tends to hurry her pace which seems to decrease the pain. Shortened steps help her symptoms. Sitting, driving and taking large steps increase the front of the left hip pain . Pt sleeps on her right side with pillow between her legs. This helps the deep throbbing pain inside the hip. She is taking Meloxicam in the mornings and aspirin at night before bed. She is able to sleep 8 hours at night. The left hip is stiff in the morning. She can hardly walk at first and it is better after she moves around. Pt was riding as a passenger in the car yesterday and it got so bad that she had to lie in the back. She denies injury. 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 She had a lot of physical jobs. Pt is undergoing left THR . Pt lives with . Pt is going to [facility] to get a rolling walker. She has a high toilet with counter that she can use easily at home. She will look into getting a tub bench or shower chair. She lives in a split level house. She has 8 steps and no railing to enter the home. Prior Treatments and Tests PT for left hip pain 7 years ago Treatment Goals Patient/Caregiver Goals To prepare for surgery. PT-OP-C Subjective Start: 02/11/20 07:31 Freq: Status: Active Protocol: Document 02/11/20 10:35 MB (Rec: 02/11/20 11:17 MB [id number]) Patient Questionnaires Lower Extremity Functional Scale LEFS Score 17 PT-OP-D Balance Start: 02/11/20 07:31 Freq: Status: Active Protocol: Document 02/11/20 10:35 MB (Rec: 02/11/20 15:35 MB [id number]) Tinetti Balance Assessment Scoring and Interpretation Tinetti Impairment Rating from Composite 1 to <20% Impaired (Score 23- Score 27) PT-OP-G Mobility & Gait Start: 02/11/20 07:31 Freq: Status: Active Protocol: Document 02/11/20 10:35 MB (Rec: 02/11/20 14:14 MB [id number]) OP Mobility Evaluation Bed Mobility Rolling Pt can perform bed mobility I, ed to use right foot to hook around left ankle to get leg in and OOB Supine to and from Sit Similar training for use of right foot Transfers Sit to Stand Cues to push up from the mat, to reach back for it and to unweight left foot for sit to stand transfers OP Gait Assessment Gait Gait Assistance Required: Independent Distance (Feet) 75 Assistive Devices Assistive Device None,Front Wheeled Walker Orthotic/Prosthetic Devices or Brace: No Gait Deviations General Gait Pattern Within Normal Limits Comments Gait Comments Pt can gait train I pre-op and ed pt in used of rolling walker for 50'2 with both step -to gait with left foot first and step-through gait. Ed to back up with right foot first with walker to decrease left ER and extension with stepping Stair Climbing Evaluation Evaluation Level of Assist On Stairs Independent Devices Stair Climbing Assistive Devices Left Railing Comments Stair Climbing Comments Stair training with rolling walker to prepare for surgery: Pt backwards, PT supporting walker in the front. Ascend first with right foot, then left foot and then the walker and reverse to descend. Ed pt how to perform with left rail ascend with step-to gait as well. PT-OP-M Strength Start: 02/11/20 07:31 Freq: Status: Active Protocol: Document 02/11/20 10:35 MB (Rec: 02/11/20 15:30 MB [id number]) Hip Strength Hip Manual Muscle Testing Left Flexion (L2) 3+ Fair+ Abduction 3+ Fair+ Right Flexion (L2) 5 Normal Abduction 5 Normal Knee Strength Knee Manual Muscle Testing Left Flexion (S2) 5 Normal Extension (L3) 5 Normal Right Flexion (S2) 5 Normal Extension (L3) 5 Normal Ankle/Foot Strength Ankle and Foot Manual Muscle Testing Left Dorsiflexion (L4) 5 Normal Right Dorsiflexion (L4) 5 Normal Toe Strength Toe Manual Muscle Testing Left Great Toe Extension 5 Normal Right Great Toe Extension 5 Normal PT-OP-Q Treatments Start: 02/11/20 07:31 Freq: Status: Active Protocol: Document 02/11/20 10:35 MB (Rec: 02/11/20 14:14 MB [id number]) Therapeutic Exercises Supine Exercises Pre-op exercises Side bilateral Comments AP, HS, QS, GS, hip abduction x2 reps, provided handout Therapeutic Activity Therapeutic Activity Sit to stands with proper hand placement Comments Push up from the mat and reach back for it to sit, unweight the left foot Gait Training Gait Activity RW, stair training Comments Gait training 50'x2 with rolling walker: ed in step-to gait with left foot forward first, then right. Ed in step- through gait. Ed in retropulsion, lead with right foot and step-to with left to decrease left ER and hip extension. Stair training with rolling walker to prepare for surgery: Pt backwards, PT supporting walker in the front. Ascend first with right foot, then left foot and then the walker and reverse to descend. Ed pt how to perform with left rail ascend with step-to gait as well. Self-Care/Home Management Treatment Education Other Education Check into getting rolling walker, BSC/tub bench/shower chair. Check paper work from surgeon about any WB and hip precautions PT-OP-T Assessment and Plan Start: 02/11/20 07:31 Freq: Status: Active Protocol: Document 02/11/20 10:35 MB (Rec: 02/11/20 14:14 MB [id number]) Physical Therapy Assessment Rehab Potential Rehabilitation Potential Good Evaluation Complexity Number of Personal Factors/Comorbidities 1-2 Number of Body Systems Impaired 1-2 Clinical Presentation at Evaluation Evolving Impairments Impairments Activity Tolerance,Balance, Functional Activities, Functional Mobility,Gait, Integument,Pain,Posture,ROM, Soft Tissue Mobility,Strength, Transfers Goals 4 Group Home Goal (LTG) Pt will perform progressive HEP with I including flexibility, strengthening, balance and gait to increase overall I by 04/14/2020. LTG Duration 8 weeks 3 Community Advocate Goal (LTG) Pt will perform at least 12 reps sit to stand without UE support in 30 sec to improve functional strength by 2020. LTG Duration 8 weeks 2 Group Home Goal (LTG) Pt will gait train at least 1500 feet in 6 minutes with no AD to improve community ambulation by 04/14/2020. LTG Duration 8 weeks 1 Group Home Goal (LTG) Pt will present with LEF score reflecting no more than 20% impairment to improve overall functional strength by 2020. LTG Duration 8 weeks Assessment Summary Assessment Pt is a 64 y/o female who works 40 hours a week, 8 hours a day on her feet at the [employer] at the [employer] . She has a 7 year history of left hip pain and is scheduled for left anterior THR on . She arrives today for pre-op evaluation. She presents with left hip weakness and reports of discomfort in hip. PT initiates pre and post-op THR exercises, educates pt in bed mobility, transfers, gait with walker and stair training. She has a split level house with two sets of 8 steps and no rails and this will be a challenge post-op. She hopes to get a rail put in before surgery and PT educates pt that rail on the left ascend would be most helpful. She does not think that she could reach two rails if one were put on each side. She will benefit from post-op PT to regain range, strength and function. Physical Therapy Plan Frequency and Duration Frequency of Treatment 2x/Week Duration of Treatment 8 weeks Plan of Care Start Date 02/11/20 Plan of Care End Date 04/14/20 Therapeutic Interventions Therapeutic Interventions Balance Training,Canalithic Repositioning,Coordination Training,Gait Training,Home Exercise Program,Manual Therapy,Neuromuscular Re- education,Patient/Caregiver Education,Self-Care/Home Management,Sensory Integration ,Soft Tissue Mobilization, Taping,Therapeutic Activities, Therapeutic Exercises Modalities Cold Pack/Ice Massage,Electric Stimulation,Hot Packs, Ultrasound Next Visit Focus/Plan Next Note Type Progress Note Next Visit Plan Progress note post-op THR, review and update goals if needed, initiate recumbent stepper
--- NOTE | 2020-02-11 15:36 | PT.OPPOC ---
Physical, Occupational & Speech Therapy At [facility] Current Diagnoses Unilateral primary osteoarthritis, left hip (02/11/20) Visit Care Team Role Provider Type JEFFERY Cole Primary Care Provider Advanced Director Of Infection Control Specialty: Medical Address: [address] [place] [address], [id number] Email: [email or web address] Javier Nielsen MD Attending Provider Physician Referring Provider Specialty: Orthopedic Surgery Address: [address] [place] [address], [address] Email: [email or web address] Plan Of Care PT-OP-T Assessment and Plan Start: 02/11/20 07:31 Freq: Status: Active Protocol: Document 02/11/20 10:35 MB (Rec: 02/11/20 14:14 MB [id number]) Physical Therapy Assessment Rehab Potential Rehabilitation Potential Good Evaluation Complexity Number of Personal Factors/Comorbidities 1-2 Number of Body Systems Impaired 1-2 Clinical Presentation at Evaluation Evolving Impairments Impairments Activity Tolerance,Balance, Functional Activities, Functional Mobility,Gait, Integument,Pain,Posture,ROM, Soft Tissue Mobility,Strength, Transfers Goals 4 Long-Term Goal (LTG) Pt will perform progressive HEP with I including flexibility, strengthening, balance and gait to increase overall I by 04/14/2020. LTG Duration 8 weeks 3 Shotweld Operator Goal (LTG) Pt will perform at least 12 reps sit to stand without UE support in 30 sec to improve functional strength by 2020. LTG Duration 8 weeks 2 Long-Term Goal (LTG) Pt will gait train at least 1500 feet in 6 minutes with no AD to improve community ambulation by 04/14/2020. LTG Duration 8 weeks 1 Shotweld Operator Goal (LTG) Pt will present with LEF score reflecting no more than 20% impairment to improve overall functional strength by 2020. LTG Duration 8 weeks Assessment Summary Assessment Pt is a 64 y/o female who works 40 hours a week, 8 hours a day on her feet at the [employer] at the [employer] . She has a 7 year history of left hip pain and is scheduled for left anterior THR on . She arrives today for pre-op evaluation. She presents with left hip weakness and reports of discomfort in hip. PT initiates pre and post-op THR exercises, educates pt in bed mobility, transfers, gait with walker and stair training. She has a split level house with two sets of 8 steps and no rails and this will be a challenge post-op. She hopes to get a rail put in before surgery and PT educates pt that rail on the left ascend would be most helpful. She does not think that she could reach two rails if one were put on each side. She will benefit from post-op PT to regain range, strength and function. Physical Therapy Plan Frequency and Duration Frequency of Treatment 2x/Week Duration of Treatment 8 weeks Plan of Care Start Date 02/11/20 Plan of Care End Date 04/14/20 Therapeutic Interventions Therapeutic Interventions Balance Training,Canalithic Repositioning,Coordination Training,Gait Training,Home Exercise Program,Manual Therapy,Neuromuscular Re- education,Patient/Caregiver Education,Self-Care/Home Management,Sensory Integration ,Soft Tissue Mobilization, Taping,Therapeutic Activities, Therapeutic Exercises Modalities Cold Pack/Ice Massage,Electric Stimulation,Hot Packs, Ultrasound Next Visit Focus/Plan Next Note Type Progress Note Next Visit Plan Progress note post-op THR, review and update goals if needed, initiate recumbent stepper Plan of Care Dates Plan of Care Start Date 02/11/20 Plan of Care End Date 04/14/20 Electronically Signed by: Jayda Stevenson, PT 02/11/20 [id number] Please Sign and Return: I have reviewed this Plan of Care and certify that the skilled therapy services above are required to meet the patient?s needs. Physician Signature Date Printed Name and Credentials Clinical Instructor Signature Printed Name and Credentials
--- NOTE | 2020-03-03 12:12 | PT.OTRE ---
Current Diagnoses Unilateral primary osteoarthritis, left hip (03/03/20) Past Medical History (Last Reviewed 02/26/20 @ 09:25 by Veda Jim PA-C) Concussion (2015) Easy bruisability Hypothyroidism Ocular rosacea Osteoarthritis Surgical History (Last Reviewed 02/26/20 @ 09:25 by Veda Jim PA-C) History of tonsillectomy [place] teeth removed Visit Care Team Role Provider Type JEFFERY Cole Primary Care Provider Advanced Fringe Weaver Specialty: Medical Address: [address] [place] [address], [id number] Email: [email or web address] Javier Nielsen MD Attending Provider Physician Referring Provider Specialty: Orthopedic Surgery Address: [address] [place] [address], [id number] Email: [email or web address] Physical Therapy Re-Evaluation PT-OP-A Visit Information Start: 02/11/20 07:31 Freq: Status: Active Protocol: Document 03/03/20 11:21 HH (Rec: 03/03/20 12:10 [id number]) Out-Patient Physical Therapy Visit Information Visit Information Visit Type Treatment Note Visit Start Time 11:20 Visit Stop Time 12:01 Total Visit Minutes 41 Visit Number 2/9 Number of SUPERVISOR BILLPOSTING Visits 0 PT-OP-B Current Condition Start: 02/11/20 07:31 Freq: Status: Active Protocol: Document 02/11/20 10:35 MB (Rec: 02/11/20 11:17 MB [id number]) Current Condition History of Current Condition Onset Date Greater than 7 years ago Current Complaints Pain in left groin that throbs History of Current Condition Pt reports 7-8/10 left hip pain in anterior and posterior areas. 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 She is now able to use a pole for people to sign their credit card receipts after buying tickets. Pt has a history of left hip pain. She had PT and was told to turn her feet, which has helped the pain. She has to walk far to the bathroom and tends to hurry her pace which seems to decrease the pain. Shortened steps help her symptoms. Sitting, driving and taking large steps increase the front of the left hip pain . Pt sleeps on her right side with pillow between her legs. This helps the deep throbbing pain inside the hip. She is taking Meloxicam in the mornings and aspirin at night before bed. She is able to sleep 8 hours at night. The left hip is stiff in the morning. She can hardly walk at first and it is better after she moves around. Pt was riding as a passenger in the car yesterday and it got so bad that she had to lie in the back. She denies injury. 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 She had a lot of physical jobs. Pt is undergoing left THR . Pt lives with . Pt is going to [facility] to get a rolling walker. She has a high toilet with counter that she can use easily at home. She will look into getting a tub bench or shower chair. She lives in a split level house. She has 8 steps and no railing to enter the home. Prior Treatments and Tests PT for left hip pain 7 years ago Treatment Goals Patient/Caregiver Goals To prepare for surgery. PT-OP-C Subjective Start: 02/11/20 07:31 Freq: Status: Active Protocol: Document 03/03/20 11:21 HH (Rec: 03/03/20 12:10 HH [id number]) OP-PT Subjective Patient Comments Patient Comments I m doing okay and mike been moving with my walker. Pain pills bother my stomach but i have been taking less. Patient Reported Progress Improving PT-OP-D Balance Start: 02/11/20 07:31 Freq: Status: Active Protocol: Document 02/11/20 10:35 MB (Rec: 02/11/20 15:35 MB [id number]) Tinetti Balance Assessment Scoring and Interpretation Tinetti Impairment Rating from Composite 1 to <20% Impaired (Score 23- Score 27) PT-OP-G Mobility & Gait Start: 02/11/20 07:31 Freq: Status: Active Protocol: Document 02/11/20 10:35 MB (Rec: 02/11/20 14:14 MB [id number]) OP Mobility Evaluation Bed Mobility Rolling Pt can perform bed mobility I, ed to use right foot to hook around left ankle to get leg in and OOB Supine to and from Sit Similar training for use of right foot Transfers Sit to Stand Cues to push up from the mat, to reach back for it and to unweight left foot for sit to stand transfers OP Gait Assessment Gait Gait Assistance Required: Independent Distance (Feet) 75 Assistive Devices Assistive Device None,Front Wheeled Walker Orthotic/Prosthetic Devices or Brace: No Gait Deviations General Gait Pattern Within Normal Limits Comments Gait Comments Pt can gait train I pre-op and ed pt in used of rolling walker for 50'2 with both step -to gait with left foot first and step-through gait. Ed to back up with right foot first with walker to decrease left ER and extension with stepping Stair Climbing Evaluation Evaluation Level of Assist On Stairs Independent Devices Stair Climbing Assistive Devices Left Railing Comments Stair Climbing Comments Stair training with rolling walker to prepare for surgery: Pt backwards, PT supporting walker in the front. Ascend first with right foot, then left foot and then the walker and reverse to descend. Ed pt how to perform with left rail ascend with step-to gait as well. PT-OP-K Range of Motion Start: 02/11/20 07:31 Freq: Status: Active Protocol: Document 03/03/20 11:21 (Rec: 03/03/20 12:10 [id number]) Hip Goniometric Range of Motion Hip Measured in Degrees Right Active Hip ROM WFL Yes Testing Position Supine Flexion w/Knee Flexed 115 Abduction 23 Left Passive Hip ROM WFL No Testing Position Supine Flexion w/Knee Flexed 95 Extension 0 Abduction 5 Comments pain with extension and abduction PT-OP-M Strength Start: 02/11/20 07:31 Freq: Status: Active Protocol: Document 03/03/20 11:21 (Rec: 03/03/20 12:10 [id number]) Hip Strength Hip Manual Muscle Testing Left Flexion (L2) 3- Fair- Abduction 3+ Fair+ Adduction 4- Good- Comments unable to test extension d/t hip precautions Right Flexion (L2) 5 Normal Extension (S1) 5 Normal Abduction 5 Normal Adduction 5 Normal Knee Strength Knee Manual Muscle Testing Left Flexion (S2) 3+ Fair+ Extension (L3) 4- Good- Right Flexion (S2) 5 Normal Extension (L3) 5 Normal PT-OP-Q Treatments Start: 02/11/20 07:31 Freq: Status: Active Protocol: Document 03/03/20 11:21 (Rec: 03/03/20 12:10 [id number]) Cardio Equipment Recumbent Stepper (Sci-Fit) Duration (Minutes) 5 Resistance 1 Seat Position 11 Other slight discomfort only Therapeutic Exercises Supine Exercises heel slide Supine Exercise Name approx hip flexion 30-80 degrees Equipment Used pillow underneath L foot to reduce friction Reps/Minutes 8 x2 quad set Side left Equipment Used pillow underneath knee Reps/Minutes 5x 3 Comments able to reach full knee extension but discomfort noted Self-Care/Home Management Treatment Education Patient Education Body Mechanics,Home Exercise Program,Joint Protection,Pain Management,Posture,Safety Other Education Reviewed post op precautions. Reminders for pt not to hyperextend her L hip and avoid bending over position at this point since she has a grabber. PT-OP-T Assessment and Plan Start: 02/11/20 07:31 Freq: Status: Active Protocol: Document 03/03/20 11:21 (Rec: 03/03/20 12:10 [id number]) Physical Therapy Assessment Goals 4 Short Term Goal (STG) 03/03 pt is compliant to HEP who does ROM ex 5-6 times a day and amb every hour. Desktop Specialist Goal (LTG) Pt will perform progressive HEP with I including flexibility, strengthening, balance and gait to increase overall I by 04/14/2020. LTG Duration 8 weeks 3 Short Term Goal (STG) 03/03 STS in 30 sec = 6 times with hands pushed , walker in front. Desktop Specialist Goal (LTG) Pt will perform at least 12 reps sit to stand without UE support in 30 sec to improve functional strength by 2020. LTG Duration 8 weeks 2 Short Term Goal (STG) 03/03 = did not assess [facility] Goal (LTG) Pt will gait train at least 1500 feet in 6 minutes with no AD to improve community ambulation by 04/14/2020. LTG Duration 8 weeks 1 Short Term Goal (STG) 03/03 LEFS = 5 post surgically. Desktop Specialist Goal (LTG) Pt will present with LEF score reflecting no more than 20% impairment to improve overall functional strength by 2020. LTG Duration 8 weeks Assessment Summary Assessment Pt had L THR wit anterior approach on 02/24. She is recovering very well at this point who is able to amb with FWW safely. She is compliant to HEP at this point and able to lay flat supine. Spent time to educate pt not to overwork and reviewed post op precautions. Physical Therapy Plan Frequency and Duration Frequency of Treatment 2x/Week Duration of Treatment 8 weeks Plan of Care Start Date 02/11/20 Plan of Care End Date 04/14/20 Next Visit Focus/Plan Next Note Type Treatment Note Next Visit Plan stepper, supine heel slide, abd, quad set marching in place, quad set, ankle pumps
--- NOTE | 2020-03-05 12:23 | PT.OTN ---
Current Diagnoses Unilateral primary osteoarthritis, left hip (03/05/20) Physical Therapy Treatment Note PT-OP-A Visit Information Start: 02/11/20 07:31 Freq: Status: Active Protocol: Document 03/05/20 10:34 [facility] (Rec: 03/05/20 12:23 [facility] [id number]) Out-Patient Physical Therapy Visit Information Visit Information Visit Type Treatment Note Visit Start Time 10:35 Visit Stop Time 11:15 Total Visit Minutes 40 Visit Number 3/9 Number of OXIDATION OPERATOR Visits 0 PT-OP-B Current Condition Start: 02/11/20 07:31 Freq: Status: Active Protocol: Document 02/11/20 10:35 MB (Rec: 02/11/20 11:17 MB [id number]) Current Condition History of Current Condition Onset Date Greater than 7 years ago Current Complaints Pain in left groin that throbs History of Current Condition Pt reports 7-8/10 left hip pain in anterior and posterior areas. 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 She is now able to use a pole for people to sign their credit card receipts after buying tickets. Pt has a history of left hip pain. She had PT and was told to turn her feet, which has helped the pain. She has to walk far to the bathroom and tends to hurry her pace which seems to decrease the pain. Shortened steps help her symptoms. Sitting, driving and taking large steps increase the front of the left hip pain . Pt sleeps on her right side with pillow between her legs. This helps the deep throbbing pain inside the hip. She is taking Meloxicam in the mornings and aspirin at night before bed. She is able to sleep 8 hours at night. The left hip is stiff in the morning. She can hardly walk at first and it is better after she moves around. Pt was riding as a passenger in the car yesterday and it got so bad that she had to lie in the back. She denies injury. 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 She had a lot of physical jobs. Pt is undergoing left THR . Pt lives with . Pt is going to [employer] to get a rolling walker. She has a high toilet with counter that she can use easily at home. She will look into getting a tub bench or shower chair. She lives in a split level house. She has 8 steps and no railing to enter the home. Prior Treatments and Tests PT for left hip pain 7 years ago Treatment Goals Patient/Caregiver Goals To prepare for surgery. PT-OP-C Subjective Start: 02/11/20 07:31 Freq: Status: Active Protocol: Document 03/05/20 10:34 [facility] (Rec: 03/05/20 12:23 [facility] [id number]) OP-PT Subjective Patient Comments Patient Comments Pt reports after doing the leg exercise on Tuesday with PT, she has had inc pain and had to take Oxycodone. She is concerned re: if she should be doing this or not as her paper says no leg raises. PT-OP-D Balance Start: 02/11/20 07:31 Freq: Status: Active Protocol: Document 02/11/20 10:35 MB (Rec: 02/11/20 15:35 MB [id number]) Tinetti Balance Assessment Scoring and Interpretation Tinetti Impairment Rating from Composite 1 to <20% Impaired (Score 23- Score 27) PT-OP-G Mobility & Gait Start: 02/11/20 07:31 Freq: Status: Active Protocol: Document 02/11/20 10:35 MB (Rec: 02/11/20 14:14 MB [id number]) OP Mobility Evaluation Bed Mobility Rolling Pt can perform bed mobility I, ed to use right foot to hook around left ankle to get leg in and OOB Supine to and from Sit Similar training for use of right foot Transfers Sit to Stand Cues to push up from the mat, to reach back for it and to unweight left foot for sit to stand transfers OP Gait Assessment Gait Gait Assistance Required: Independent Distance (Feet) 75 Assistive Devices Assistive Device None,Front Wheeled Walker Orthotic/Prosthetic Devices or Brace: No Gait Deviations General Gait Pattern Within Normal Limits Comments Gait Comments Pt can gait train I pre-op and ed pt in used of rolling walker for 50'2 with both step -to gait with left foot first and step-through gait. Ed to back up with right foot first with walker to decrease left ER and extension with stepping Stair Climbing Evaluation Evaluation Level of Assist On Stairs Independent Devices Stair Climbing Assistive Devices Left Railing Comments Stair Climbing Comments Stair training with rolling walker to prepare for surgery: Pt backwards, PT supporting walker in the front. Ascend first with right foot, then left foot and then the walker and reverse to descend. Ed pt how to perform with left rail ascend with step-to gait as well. PT-OP-K Range of Motion Start: 02/11/20 07:31 Freq: Status: Active Protocol: Document 03/03/20 11:21 (Rec: 03/03/20 12:10 [id number]) Hip Goniometric Range of Motion Hip Right Active Hip ROM WFL Yes Testing Position Supine Flexion w/Knee Flexed 115 Abduction 23 Left Passive Hip ROM WFL No Testing Position Supine Flexion w/Knee Flexed 95 Extension 0 Abduction 5 Comments pain with extension and abduction PT-OP-M Strength Start: 02/11/20 07:31 Freq: Status: Active Protocol: Document 03/03/20 11:21 (Rec: 03/03/20 12:10 [id number]) Hip Strength Hip Manual Muscle Testing Left Flexion (L2) 3- Fair- Abduction 3+ Fair+ Adduction 4- Good- Comments unable to test extension d/t hip precautions Right Flexion (L2) 5 Normal Extension (S1) 5 Normal Abduction 5 Normal Adduction 5 Normal Knee Strength Knee Manual Muscle Testing Left Flexion (S2) 3+ Fair+ Extension (L3) 4- Good- Right Flexion (S2) 5 Normal Extension (L3) 5 Normal PT-OP-Q Treatments Start: 02/11/20 07:31 Freq: Status: Active Protocol: Document 03/05/20 10:34 [facility] (Rec: 03/05/20 12:23 [facility] [id number]) Therapeutic Exercises Supine Exercises pelvic tilt Supine Exercise Name post Reps/Minutes 15 heel slide Supine Exercise Name approx hip flexion 30-80 degrees Side left Reps/Minutes 15 Comments AAROm w/cane quad set Side left Reps/Minutes 6 Standing Exercises sit to stand Reps/Minutes 10 Comments no hands as long as she was able to control decent Gait Training Gait Activity stairs Description up 4 in then 6 in steps with rail step to pattern Distance/Duration 3x ea set of trainiing steps cane Description use of cane in RUE -equal step lengths Distance/Duration 6x30ft Self-Care/Home Management Treatment Education Patient Education Home Exercise Program Other Education showed pt difference btwn SLR vs heel slide and educated why heel slide is good but not SLR. Pt educated on precautions and discussed she is not restricted from bending fwd but needs to be careful re: not losing her balance & to avoid increasing pain as pt notes some pain. Discussed getting new director safety d/t hers breaking. PT-OP-T Assessment and Plan Start: 02/11/20 07:31 Freq: Status: Active Protocol: Document 03/05/20 10:34 [facility] (Rec: 03/05/20 12:23 [facility] [id number]) Physical Therapy Assessment Goals 4 Short Term Goal (STG) 03/03 pt is compliant to HEP who does ROM ex 5-6 times a day and amb every hour. Contract Administration Specialist Goal (LTG) Pt will perform progressive HEP with I including flexibility, strengthening, balance and gait to increase overall I by 04/14/2020. LTG Duration 8 weeks 3 Short Term Goal (STG) 03/03 STS in 30 sec = 6 times with hands pushed , walker in front. Intermediate Goal (LTG) Pt will perform at least 12 reps sit to stand without UE support in 30 sec to improve functional strength by 2020. LTG Duration 8 weeks 2 Short Term Goal (STG) 03/03 = did not assess Intermediate Goal (LTG) Pt will gait train at least 1500 feet in 6 minutes with no AD to improve community ambulation by 04/14/2020. LTG Duration 8 weeks 1 Short Term Goal (STG) 03/03 LEFS = 5 post surgically. Intermediate Goal (LTG) Pt will present with LEF score reflecting no more than 20% impairment to improve overall functional strength by 2020. LTG Duration 8 weeks Assessment Summary Assessment Pt able to do AAROM heel slide with less pain than with AROM so encouraged to do AAROM until can gradually inc to doing mostly with L only. She does appear to have leg length discrepency but did not evaluate if true leg length discrepency. Pt educated to talk to re: this as she is unable to straighten LLE ins tanding without going onto R toes. Physical Therapy Plan Frequency and Duration Frequency of Treatment 2x/Week Duration of Treatment 8 weeks Plan of Care Start Date 02/11/20 Plan of Care End Date 04/14/20 Next Visit Focus/Plan Next Note Type Treatment Note Next Visit Plan stepper, supine heel slide, abd, quad set marching in place, quad set, ankle pumps
--- NOTE | 2020-03-10 12:18 | PT.OTN ---
Current Diagnoses Unilateral primary osteoarthritis, left hip (03/10/20) Physical Therapy Treatment Note PT-OP-A Visit Information Start: 02/11/20 07:31 Freq: Status: Active Protocol: Document 03/10/20 11:29 HH (Rec: 03/10/20 12:18 HH [id number]) Out-Patient Physical Therapy Visit Information Visit Information Visit Type Treatment Note Visit Note pt is 15 mins late Visit Start Time 11:29 Visit Stop Time 12:00 Total Visit Minutes 31 Visit Number 4/9 Number of ACCOUNT INSTALLER Visits 0 PT-OP-B Current Condition Start: 02/11/20 07:31 Freq: Status: Active Protocol: Document 02/11/20 10:35 MB (Rec: 02/11/20 11:17 MB [id number]) Current Condition History of Current Condition Onset Date Greater than 7 years ago Current Complaints Pain in left groin that throbs History of Current Condition Pt reports 7-8/10 left hip pain in anterior and posterior areas. 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 She is now able to use a pole for people to sign their credit card receipts after buying tickets. Pt has a history of left hip pain. She had PT and was told to turn her feet, which has helped the pain. She has to walk far to the bathroom and tends to hurry her pace which seems to decrease the pain. Shortened steps help her symptoms. Sitting, driving and taking large steps increase the front of the left hip pain . Pt sleeps on her right side with pillow between her legs. This helps the deep throbbing pain inside the hip. She is taking Meloxicam in the mornings and aspirin at night before bed. She is able to sleep 8 hours at night. The left hip is stiff in the morning. She can hardly walk at first and it is better after she moves around. Pt was riding as a passenger in the car yesterday and it got so bad that she had to lie in the back. She denies injury. 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 She had a lot of physical jobs. Pt is undergoing left THR . Pt lives with . Pt is going to [employer] to get a rolling walker. She has a high toilet with counter that she can use easily at home. She will look into getting a tub bench or shower chair. She lives in a split level house. She has 8 steps and no railing to enter the home. Prior Treatments and Tests PT for left hip pain 7 years ago Treatment Goals Patient/Caregiver Goals To prepare for surgery. PT-OP-C Subjective Start: 02/11/20 07:31 Freq: Status: Active Protocol: Document 03/10/20 11:29 HH (Rec: 03/10/20 12:18 HH [id number]) OP-PT Subjective Patient Comments Patient Comments I went to see my surgeon and he said im doing great because i have good muscles on my leg . And he is not worried about me feeling my L leg is longer than the R. My back has been getting more sore as i walked for longer distance. Patient Reported Progress Improving PT-OP-D Balance Start: 02/11/20 07:31 Freq: Status: Active Protocol: Document 02/11/20 10:35 MB (Rec: 02/11/20 15:35 MB [id number]) Tinetti Balance Assessment Scoring and Interpretation Tinetti Impairment Rating from Composite 1 to <20% Impaired (Score 23- Score 27) PT-OP-G Mobility & Gait Start: 02/11/20 07:31 Freq: Status: Active Protocol: Document 02/11/20 10:35 MB (Rec: 02/11/20 14:14 MB [id number]) OP Mobility Evaluation Bed Mobility Rolling Pt can perform bed mobility I, ed to use right foot to hook around left ankle to get leg in and OOB Supine to and from Sit Similar training for use of right foot Transfers Sit to Stand Cues to push up from the mat, to reach back for it and to unweight left foot for sit to stand transfers OP Gait Assessment Gait Gait Assistance Required: Independent Distance (Feet) 75 Assistive Devices Assistive Device None,Front Wheeled Walker Orthotic/Prosthetic Devices or Brace: No Gait Deviations General Gait Pattern Within Normal Limits Comments Gait Comments Pt can gait train I pre-op and ed pt in used of rolling walker for 50'2 with both step -to gait with left foot first and step-through gait. Ed to back up with right foot first with walker to decrease left ER and extension with stepping Stair Climbing Evaluation Evaluation Level of Assist On Stairs Independent Devices Stair Climbing Assistive Devices Left Railing Comments Stair Climbing Comments Stair training with rolling walker to prepare for surgery: Pt backwards, PT supporting walker in the front. Ascend first with right foot, then left foot and then the walker and reverse to descend. Ed pt how to perform with left rail ascend with step-to gait as well. PT-OP-K Range of Motion Start: 02/11/20 07:31 Freq: Status: Active Protocol: Document 03/03/20 11:21 (Rec: 03/03/20 12:10 [id number]) Hip Goniometric Range of Motion Hip Right Active Hip ROM WFL Yes Testing Position Supine Flexion w/Knee Flexed 115 Abduction 23 Left Passive Hip ROM WFL No Testing Position Supine Flexion w/Knee Flexed 95 Extension 0 Abduction 5 Comments pain with extension and abduction PT-OP-M Strength Start: 02/11/20 07:31 Freq: Status: Active Protocol: Document 03/03/20 11:21 (Rec: 03/03/20 12:10 [id number]) Hip Strength Hip Manual Muscle Testing Left Flexion (L2) 3- Fair- Abduction 3+ Fair+ Adduction 4- Good- Comments unable to test extension d/t hip precautions Right Flexion (L2) 5 Normal Extension (S1) 5 Normal Abduction 5 Normal Adduction 5 Normal Knee Strength Knee Manual Muscle Testing Left Flexion (S2) 3+ Fair+ Extension (L3) 4- Good- Right Flexion (S2) 5 Normal Extension (L3) 5 Normal PT-OP-Q Treatments Start: 02/11/20 07:31 Freq: Status: Active Protocol: Document 03/10/20 11:29 (Rec: 03/10/20 12:18 [id number]) Cardio Equipment Recumbent Stepper (Sci-Fit) Duration (Minutes) 8 Resistance 2.0 Seat Position 11 Other no discomfort Therapeutic Exercises Supine Exercises supine hip abduction Supine Exercise Name R knee in hooklying Side left Reps/Minutes 8 x2 Comments pillow underneath at L ankle for sliding heel slide Supine Exercise Name neutral hip extension to hip flexion at 80 degrees Side left Reps/Minutes 10x2 Comments AROM, pillow underneath at L ankle for sliding, min discomfort quad set Side left Reps/Minutes 6 Comments pillow underneath ankle Standing Exercises sit to stand Reps/Minutes 6x2 Comments no hands as long as she was able to control decent Therapeutic Activity Therapeutic Activity stair climb Reps/Minutes 3 x 5 Comments reviewed climbing technique with L leg up and R leg down. Pt did not need railing for ascend. 1 UE railing for descend PT-OP-T Assessment and Plan Start: 02/11/20 07:31 Freq: Status: Active Protocol: Document 03/10/20 11:29 (Rec: 03/10/20 12:18 [id number]) Physical Therapy Assessment Goals 4 Short Term Goal (STG) 03/03 pt is compliant to HEP who does ROM ex 5-6 times a day and amb every hour. Snf Goal (LTG) Pt will perform progressive HEP with I including flexibility, strengthening, balance and gait to increase overall I by 04/14/2020. LTG Duration 8 weeks 3 Short Term Goal (STG) 03/03 STS in 30 sec = 6 times with hands pushed , walker in front. Snf Goal (LTG) Pt will perform at least 12 reps sit to stand without UE support in 30 sec to improve functional strength by 2020. LTG Duration 8 weeks 2 Short Term Goal (STG) 03/03 = did not assess Snf Goal (LTG) Pt will gait train at least 1500 feet in 6 minutes with no AD to improve community ambulation by 04/14/2020. LTG Duration 8 weeks 1 Short Term Goal (STG) 03/03 LEFS = 5 post surgically. Snf Goal (LTG) Pt will present with LEF score reflecting no more than 20% impairment to improve overall functional strength by 2020. LTG Duration 8 weeks Assessment Summary Assessment Pt came in with SPC with forward trunk lean and she does complain increased back soreness lately. Pt shows good progress with improved hip ROM. She can tolerate neutral hip extension and hip flexion 80 degrees for supine heel slide. Added supine hip abd. Reviewed stair climbing technique with her and she showed good stability. Physical Therapy Plan Frequency and Duration Frequency of Treatment 2x/Week Duration of Treatment 8 weeks Plan of Care Start Date 02/11/20 Plan of Care End Date 04/14/20 Next Visit Focus/Plan Next Note Type Treatment Note Next Visit Plan stepper, supine heel slide, abd, quad set marching in place, quad set, ankle pumps initiate strength training , leg press, gait training without SPC if appropriate
--- NOTE | 2020-03-13 12:07 | PT.OTN ---
Current Diagnoses Unilateral primary osteoarthritis, left hip (03/13/20) Physical Therapy Treatment Note PT-OP-A Visit Information Start: 02/11/20 07:31 Freq: Status: Active Protocol: Document 03/13/20 11:20 DCW (Rec: 03/13/20 12:07 DCW [id number]) Out-Patient Physical Therapy Visit Information Visit Information Visit Type Treatment Note Visit Start Time 11:20 Visit Stop Time 12:00 Total Visit Minutes 40 Visit Number 5/9 Number of LEADERSHIP INTERN Visits 0 PT-OP-B Current Condition Start: 02/11/20 07:31 Freq: Status: Active Protocol: Document 02/11/20 10:35 MB (Rec: 02/11/20 11:17 MB [id number]) Current Condition History of Current Condition Onset Date Greater than 7 years ago Current Complaints Pain in left groin that throbs History of Current Condition Pt reports 7-8/10 left hip pain in anterior and posterior areas. 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 She is now able to use a pole for people to sign their credit card receipts after buying tickets. Pt has a history of left hip pain. She had PT and was told to turn her feet, which has helped the pain. She has to walk far to the bathroom and tends to hurry her pace which seems to decrease the pain. Shortened steps help her symptoms. Sitting, driving and taking large steps increase the front of the left hip pain . Pt sleeps on her right side with pillow between her legs. This helps the deep throbbing pain inside the hip. She is taking Meloxicam in the mornings and aspirin at night before bed. She is able to sleep 8 hours at night. The left hip is stiff in the morning. She can hardly walk at first and it is better after she moves around. Pt was riding as a passenger in the car yesterday and it got so bad that she had to lie in the back. She denies injury. 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 She had a lot of physical jobs. Pt is undergoing left THR . Pt lives with . Pt is going to [employer] to get a rolling walker. She has a high toilet with counter that she can use easily at home. She will look into getting a tub bench or shower chair. She lives in a split level house. She has 8 steps and no railing to enter the home. Prior Treatments and Tests PT for left hip pain 7 years ago Treatment Goals Patient/Caregiver Goals To prepare for surgery. PT-OP-C Subjective Start: 02/11/20 07:31 Freq: Status: Active Protocol: Document 03/13/20 11:20 DCW (Rec: 03/13/20 12:07 DCW [id number]) OP-PT Subjective Patient Comments Patient Comments I think I recovered really quickly, but I'm still having enough pain at night that I need a pain pill. PT-OP-D Balance Start: 02/11/20 07:31 Freq: Status: Active Protocol: Document 02/11/20 10:35 MB (Rec: 02/11/20 15:35 MB [id number]) Tinetti Balance Assessment Scoring and Interpretation Tinetti Impairment Rating from Composite 1 to <20% Impaired (Score 23- Score 27) PT-OP-G Mobility & Gait Start: 02/11/20 07:31 Freq: Status: Active Protocol: Document 02/11/20 10:35 MB (Rec: 02/11/20 14:14 MB [id number]) OP Mobility Evaluation Bed Mobility Rolling Pt can perform bed mobility I, ed to use right foot to hook around left ankle to get leg in and OOB Supine to and from Sit Similar training for use of right foot Transfers Sit to Stand Cues to push up from the mat, to reach back for it and to unweight left foot for sit to stand transfers OP Gait Assessment Gait Gait Assistance Required: Independent Distance (Feet) 75 Assistive Devices Assistive Device None,Front Wheeled Walker Orthotic/Prosthetic Devices or Brace: No Gait Deviations General Gait Pattern Within Normal Limits Comments Gait Comments Pt can gait train I pre-op and ed pt in used of rolling walker for 50'2 with both step -to gait with left foot first and step-through gait. Ed to back up with right foot first with walker to decrease left ER and extension with stepping Stair Climbing Evaluation Evaluation Level of Assist On Stairs Independent Devices Stair Climbing Assistive Devices Left Railing Comments Stair Climbing Comments Stair training with rolling walker to prepare for surgery: Pt backwards, PT supporting walker in the front. Ascend first with right foot, then left foot and then the walker and reverse to descend. Ed pt how to perform with left rail ascend with step-to gait as well. PT-OP-K Range of Motion Start: 02/11/20 07:31 Freq: Status: Active Protocol: Document 03/03/20 11:21 HH (Rec: 03/03/20 12:10 [id number]) Hip Goniometric Range of Motion Hip Right Active Hip ROM WFL Yes Testing Position Supine Flexion w/Knee Flexed 115 Abduction 23 Left Passive Hip ROM WFL No Testing Position Supine Flexion w/Knee Flexed 95 Extension 0 Abduction 5 Comments pain with extension and abduction PT-OP-M Strength Start: 02/11/20 07:31 Freq: Status: Active Protocol: Document 03/03/20 11:21 HH (Rec: 03/03/20 12:10 [id number]) Hip Strength Hip Manual Muscle Testing Left Flexion (L2) 3- Fair- Abduction 3+ Fair+ Adduction 4- Good- Comments unable to test extension d/t hip precautions Right Flexion (L2) 5 Normal Extension (S1) 5 Normal Abduction 5 Normal Adduction 5 Normal Knee Strength Knee Manual Muscle Testing Left Flexion (S2) 3+ Fair+ Extension (L3) 4- Good- Right Flexion (S2) 5 Normal Extension (L3) 5 Normal PT-OP-Q Treatments Start: 02/11/20 07:31 Freq: Status: Active Protocol: Document 03/13/20 11:20 DCW (Rec: 03/13/20 12:07 DCW [id number]) Cardio Equipment Recumbent Elliptical (Biodex) Duration (Minutes) 6 Resistance 4 Seat Position 8 Gym Equipment Shuttle Recovery Unilateral Squats Resistance 25# Shuttle Recovery Platform Stable Bilateral Squats Resistance 50# Shuttle Recovery Platform Stable Therapeutic Exercises Supine Exercises glute set Side bilateral Reps/Minutes 5 hold x10 supine hip abduction Supine Exercise Name R knee in hooklying Side left Reps/Minutes 10 x2 Comments pillowcase on L foot heel slide Supine Exercise Name neutral hip extension to hip flexion at 80 degrees Side left Reps/Minutes 10x2 Comments pillowcase on L foot quad set Side left Reps/Minutes 5 hold x10 Comments towel roll underneath knee Standing Exercises sit to stand Reps/Minutes x10 Comments no hands as long as she was able to control decent PT-OP-T Assessment and Plan Start: 02/11/20 07:31 Freq: Status: Active Protocol: Document 03/13/20 11:20 DCW (Rec: 03/13/20 12:07 DCW [id number]) Physical Therapy Assessment Goals 4 Short Term Goal (STG) 12 pt is compliant to HEP who does ROM ex 5-6 times a day and amb every hour. Usp Goal (LTG) Pt will perform progressive HEP with I including flexibility, strengthening, balance and gait to increase overall I by 04/14/2020. LTG Duration 8 weeks 3 Short Term Goal (STG) 03/03 STS in 30 sec = 6 times with hands pushed , walker in front. Flexographic Press Operator Goal (LTG) Pt will perform at least 12 reps sit to stand without UE support in 30 sec to improve functional strength by 2020. LTG Duration 8 weeks 2 Short Term Goal (STG) 03/03 = did not assess Usp Goal (LTG) Pt will gait train at least 1500 feet in 6 minutes with no AD to improve community ambulation by 04/14/2020. LTG Duration 8 weeks 1 Short Term Goal (STG) 03/03 LEFS = 5 post surgically. Flexographic Press Operator Goal (LTG) Pt will present with LEF score reflecting no more than 20% impairment to improve overall functional strength by 2020. LTG Duration 8 weeks Assessment Summary Assessment Pt somewhat limited with activity tolerance today, but overall appears to be making good progress. Once again required review of HEP with print-out of exercises. Physical Therapy Plan Frequency and Duration Frequency of Treatment 2x/Week Duration of Treatment 8 weeks Plan of Care Start Date 02/11/20 Plan of Care End Date 04/14/20 Next Visit Focus/Plan Next Note Type Treatment Note Next Visit Plan stepper, supine heel slide, abd, quad set marching in place, quad set, ankle pumps initiate strength training , leg press, gait training without SPC if appropriate
--- NOTE | 2020-03-17 12:02 | PT.OTN ---
Current Diagnoses Unilateral primary osteoarthritis, left hip (03/17/20) Physical Therapy Treatment Note PT-OP-A Visit Information Start: 02/11/20 07:31 Freq: Status: Active Protocol: Document 03/17/20 11:16 HH (Rec: 03/17/20 12:02 HH [id number]) Out-Patient Physical Therapy Visit Information Visit Information Visit Type Treatment Note Visit Note pt is 7 mins late Visit Start Time 11:22 Visit Stop Time 12:00 Total Visit Minutes 38 Visit Number 6/9 Number of DATA PROCESSING AUDITOR Visits 0 PT-OP-B Current Condition Start: 02/11/20 07:31 Freq: Status: Active Protocol: Document 02/11/20 10:35 MB (Rec: 02/11/20 11:17 MB [id number]) Current Condition History of Current Condition Onset Date Greater than 7 years ago Current Complaints Pain in left groin that throbs History of Current Condition Pt reports 7-8/10 left hip pain in anterior and posterior areas. 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 She is now able to use a pole for people to sign their credit card receipts after buying tickets. Pt has a history of left hip pain. She had PT and was told to turn her feet, which has helped the pain. She has to walk far to the bathroom and tends to hurry her pace which seems to decrease the pain. Shortened steps help her symptoms. Sitting, driving and taking large steps increase the front of the left hip pain . Pt sleeps on her right side with pillow between her legs. This helps the deep throbbing pain inside the hip. She is taking Meloxicam in the mornings and aspirin at night before bed. She is able to sleep 8 hours at night. The left hip is stiff in the morning. She can hardly walk at first and it is better after she moves around. Pt was riding as a passenger in the car yesterday and it got so bad that she had to lie in the back. She denies injury. 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 She had a lot of physical jobs. Pt is undergoing left THR . Pt lives with . Pt is going to [employer] to get a rolling walker. She has a high toilet with counter that she can use easily at home. She will look into getting a tub bench or shower chair. She lives in a split level house. She has 8 steps and no railing to enter the home. Prior Treatments and Tests PT for left hip pain 7 years ago Treatment Goals Patient/Caregiver Goals To prepare for surgery. PT-OP-C Subjective Start: 02/11/20 07:31 Freq: Status: Active Protocol: Document 03/17/20 11:16 HH (Rec: 03/17/20 12:02 HH [id number]) OP-PT Subjective Patient Comments Patient Comments Im doing good but i do get stiff easily. I just need to be patient regarding of my progress. I just want to get it over with. Patient Reported Progress Improving PT-OP-D Balance Start: 02/11/20 07:31 Freq: Status: Active Protocol: Document 02/11/20 10:35 MB (Rec: 02/11/20 15:35 MB [id number]) Tinetti Balance Assessment Scoring and Interpretation Tinetti Impairment Rating from Composite 1 to <20% Impaired (Score 23- Score 27) PT-OP-G Mobility & Gait Start: 02/11/20 07:31 Freq: Status: Active Protocol: Document 02/11/20 10:35 MB (Rec: 02/11/20 14:14 MB [id number]) OP Mobility Evaluation Bed Mobility Rolling Pt can perform bed mobility I, ed to use right foot to hook around left ankle to get leg in and OOB Supine to and from Sit Similar training for use of right foot Transfers Sit to Stand Cues to push up from the mat, to reach back for it and to unweight left foot for sit to stand transfers OP Gait Assessment Gait Gait Assistance Required: Independent Distance (Feet) 75 Assistive Devices Assistive Device None,Front Wheeled Walker Orthotic/Prosthetic Devices or Brace: No Gait Deviations General Gait Pattern Within Normal Limits Comments Gait Comments Pt can gait train I pre-op and ed pt in used of rolling walker for 50'2 with both step -to gait with left foot first and step-through gait. Ed to back up with right foot first with walker to decrease left ER and extension with stepping Stair Climbing Evaluation Evaluation Level of Assist On Stairs Independent Devices Stair Climbing Assistive Devices Left Railing Comments Stair Climbing Comments Stair training with rolling walker to prepare for surgery: Pt backwards, PT supporting walker in the front. Ascend first with right foot, then left foot and then the walker and reverse to descend. Ed pt how to perform with left rail ascend with step-to gait as well. PT-OP-K Range of Motion Start: 02/11/20 07:31 Freq: Status: Active Protocol: Document 03/03/20 11:21 (Rec: 03/03/20 12:10 [id number]) Hip Goniometric Range of Motion Hip Right Active Hip ROM WFL Yes Testing Position Supine Flexion w/Knee Flexed 115 Abduction 23 Left Passive Hip ROM WFL No Testing Position Supine Flexion w/Knee Flexed 95 Extension 0 Abduction 5 Comments pain with extension and abduction PT-OP-M Strength Start: 02/11/20 07:31 Freq: Status: Active Protocol: Document 03/03/20 11:21 (Rec: 03/03/20 12:10 [id number]) Hip Strength Hip Manual Muscle Testing Left Flexion (L2) 3- Fair- Abduction 3+ Fair+ Adduction 4- Good- Comments unable to test extension d/t hip precautions Right Flexion (L2) 5 Normal Extension (S1) 5 Normal Abduction 5 Normal Adduction 5 Normal Knee Strength Knee Manual Muscle Testing Left Flexion (S2) 3+ Fair+ Extension (L3) 4- Good- Right Flexion (S2) 5 Normal Extension (L3) 5 Normal PT-OP-Q Treatments Start: 02/11/20 07:31 Freq: Status: Active Protocol: Document 03/17/20 11:16 (Rec: 03/17/20 12:02 [id number]) Gym Equipment Shuttle Recovery Unilateral Squats Resistance 25# for 1st set then 37 for 2nd on R, L #25 Shuttle Recovery Platform Stable Reps/Time 10 x2 Bilateral Squats Resistance 50# Shuttle Recovery Platform Stable Therapeutic Exercises Supine Exercises glute set Side bilateral Reps/Minutes 5 hold x10 supine hip abduction Supine Exercise Name R knee in hooklying Side left Reps/Minutes 10 x2 Comments pillowcase on L foot heel slide Supine Exercise Name neutral hip extension to hip flexion at 80 degrees Side left Reps/Minutes 10x2 Comments pillowcase on L foot, improved performance today. quad set Side left Reps/Minutes 5 hold x10 Comments towel roll underneath knee Standing Exercises standing hip abd Side bilateral Reps/Minutes 8 x2 Comments cues on slow eccentric control sit to stand Reps/Minutes x10 Comments no hands as long as she was able to control decent Gait Training Gait Activity gait w/o AD Device Used no AD Level of Assistance CGA Surface ground level Distance/Duration 200 x2 Comments pt did well but does show slight L steppage gait on L d/ t LLD PT-OP-T Assessment and Plan Start: 02/11/20 07:31 Freq: Status: Active Protocol: Document 03/17/20 11:16 (Rec: 03/17/20 12:02 [id number]) Physical Therapy Assessment Goals 4 Short Term Goal (STG) 03/03 pt is compliant to HEP who does ROM ex 5-6 times a day and amb every hour. Senior Living Goal (LTG) Pt will perform progressive HEP with I including flexibility, strengthening, balance and gait to increase overall I by 04/14/2020. LTG Duration 8 weeks 3 Short Term Goal (STG) 03/03 STS in 30 sec = 6 times with hands pushed , walker in front. Cloth Washer Goal (LTG) Pt will perform at least 12 reps sit to stand without UE support in 30 sec to improve functional strength by 2020. LTG Duration 8 weeks 2 Short Term Goal (STG) 03/03 = did not assess Cloth Washer Goal (LTG) Pt will gait train at least 1500 feet in 6 minutes with no AD to improve community ambulation by 04/14/2020. LTG Duration 8 weeks 1 Short Term Goal (STG) 03/03 LEFS = 5 post surgically. Cloth Washer Goal (LTG) Pt will present with LEF score reflecting no more than 20% impairment to improve overall functional strength by 2020. LTG Duration 8 weeks Assessment Summary Assessment Pt shows good progress with improved AROM with minimal pain. she is also able to amb 2 laps in the clinic without AD, minimal gait deviation noted only. Hip abduction cont to be hardest for her at this point. Physical Therapy Plan Frequency and Duration Frequency of Treatment 2x/Week Duration of Treatment 8 weeks Plan of Care Start Date 02/11/20 Plan of Care End Date 04/14/20 Next Visit Focus/Plan Next Note Type Treatment Note Next Visit Plan stepper, supine heel slide, abd, quad set marching in place, quad set, ankle pumps initiate strength training , leg press, gait training without SPC if appropriate
--- NOTE | 2020-03-19 12:15 | PT.OTN ---
Current Diagnoses Unilateral primary osteoarthritis, left hip (03/19/20) Physical Therapy Treatment Note PT-OP-A Visit Information Start: 02/11/20 07:31 Freq: Status: Active Protocol: Document 03/19/20 11:13 [facility] (Rec: 03/19/20 12:15 [facility] [id number]) Out-Patient Physical Therapy Visit Information Visit Information Visit Type Treatment Note Visit Note pt is 9 mins late Visit Start Time 11:24 Visit Stop Time 12:02 Total Visit Minutes 38 Visit Number 7/9 Number of ACCESS CONTROL SPECIALIST Visits 0 PT-OP-B Current Condition Start: 02/11/20 07:31 Freq: Status: Active Protocol: Document 02/11/20 10:35 MB (Rec: 02/11/20 11:17 MB [id number]) Current Condition History of Current Condition Onset Date Greater than 7 years ago Current Complaints Pain in left groin that throbs History of Current Condition Pt reports 7-8/10 left hip pain in anterior and posterior areas. 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 She is now able to use a pole for people to sign their credit card receipts after buying tickets. Pt has a history of left hip pain. She had PT and was told to turn her feet, which has helped the pain. She has to walk far to the bathroom and tends to hurry her pace which seems to decrease the pain. Shortened steps help her symptoms. Sitting, driving and taking large steps increase the front of the left hip pain . Pt sleeps on her right side with pillow between her legs. This helps the deep throbbing pain inside the hip. She is taking Meloxicam in the mornings and aspirin at night before bed. She is able to sleep 8 hours at night. The left hip is stiff in the morning. She can hardly walk at first and it is better after she moves around. Pt was riding as a passenger in the car yesterday and it got so bad that she had to lie in the back. She denies injury. 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 She had a lot of physical jobs. Pt is undergoing left THR . Pt lives with . Pt is going to [employer] to get a rolling walker. She has a high toilet with counter that she can use easily at home. She will look into getting a tub bench or shower chair. She lives in a split level house. She has 8 steps and no railing to enter the home. Prior Treatments and Tests PT for left hip pain 7 years ago Treatment Goals Patient/Caregiver Goals To prepare for surgery. PT-OP-C Subjective Start: 02/11/20 07:31 Freq: Status: Active Protocol: Document 03/19/20 11:13 [facility] (Rec: 03/19/20 12:15 [facility] [id number]) OP-PT Subjective Patient Comments Patient Comments Pt reprots her MD told her that her L leg is 1/8 in longer. She is able to stand better today. Notes she wants to go for walks but knows she shouldn't PT-OP-D Balance Start: 02/11/20 07:31 Freq: Status: Active Protocol: Document 02/11/20 10:35 MB (Rec: 02/11/20 15:35 MB [id number]) Tinetti Balance Assessment Scoring and Interpretation Tinetti Impairment Rating from Composite 1 to <20% Impaired (Score 23- Score 27) PT-OP-G Mobility & Gait Start: 02/11/20 07:31 Freq: Status: Active Protocol: Document 02/11/20 10:35 MB (Rec: 02/11/20 14:14 MB [id number]) OP Mobility Evaluation Bed Mobility Rolling Pt can perform bed mobility I, ed to use right foot to hook around left ankle to get leg in and OOB Supine to and from Sit Similar training for use of right foot Transfers Sit to Stand Cues to push up from the mat, to reach back for it and to unweight left foot for sit to stand transfers OP Gait Assessment Gait Gait Assistance Required: Independent Distance (Feet) 75 Assistive Devices Assistive Device None,Front Wheeled Walker Orthotic/Prosthetic Devices or Brace: No Gait Deviations General Gait Pattern Within Normal Limits Comments Gait Comments Pt can gait train I pre-op and ed pt in used of rolling walker for 50'2 with both step -to gait with left foot first and step-through gait. Ed to back up with right foot first with walker to decrease left ER and extension with stepping Stair Climbing Evaluation Evaluation Level of Assist On Stairs Independent Devices Stair Climbing Assistive Devices Left Railing Comments Stair Climbing Comments Stair training with rolling walker to prepare for surgery: Pt backwards, PT supporting walker in the front. Ascend first with right foot, then left foot and then the walker and reverse to descend. Ed pt how to perform with left rail ascend with step-to gait as well. PT-OP-K Range of Motion Start: 02/11/20 07:31 Freq: Status: Active Protocol: Document 03/03/20 11:21 (Rec: 03/03/20 12:10 [id number]) Hip Goniometric Range of Motion Hip Right Active Hip ROM WFL Yes Testing Position Supine Flexion w/Knee Flexed 115 Abduction 23 Left Passive Hip ROM WFL No Testing Position Supine Flexion w/Knee Flexed 95 Extension 0 Abduction 5 Comments pain with extension and abduction PT-OP-M Strength Start: 02/11/20 07:31 Freq: Status: Active Protocol: Document 03/03/20 11:21 (Rec: 03/03/20 12:10 [id number]) Hip Strength Hip Manual Muscle Testing Left Flexion (L2) 3- Fair- Abduction 3+ Fair+ Adduction 4- Good- Comments unable to test extension d/t hip precautions Right Flexion (L2) 5 Normal Extension (S1) 5 Normal Abduction 5 Normal Adduction 5 Normal Knee Strength Knee Manual Muscle Testing Left Flexion (S2) 3+ Fair+ Extension (L3) 4- Good- Right Flexion (S2) 5 Normal Extension (L3) 5 Normal PT-OP-Q Treatments Start: 02/11/20 07:31 Freq: Status: Active Protocol: Document 03/19/20 11:13 [facility] (Rec: 03/19/20 12:15 [facility] [id number]) Cardio Equipment Recumbent Elliptical (Biodex) Duration (Minutes) 6 Resistance 5-7 Seat Position 7 Gym Equipment Shuttle Recovery Unilateral Squats Details B Resistance 37# Shuttle Recovery Platform Stable Reps/Time 2x8 Bilateral Squats Resistance 67# Shuttle Recovery Platform Stable Reps/Time 15 Therapeutic Exercises Standing Exercises hip hike Standing Exercise Name on 4 in step-focus on abd not add-did not go down to ground Side bilateral Reps/Minutes 10 Therapeutic Activity Therapeutic Activity posture Comments took extra insole in R shoe out of pt's R shoe she had placed in; worked on even wt distribution btwn front & back of feet and into ea LE & no hip flex in standing; worked on focus on good posture when first stand up and start moving Manual Therapy Treatment Soft Tissue Mobilization ITB Mobilization Type Rolling Intensity/Depth Moderate Body Position Hooklying quads Mobilization Type Rolling Intensity/Depth Moderate Body Position Hooklying PT-OP-T Assessment and Plan Start: 02/11/20 07:31 Freq: Status: Active Protocol: Document 03/19/20 11:13 [facility] (Rec: 03/19/20 12:15 [facility] [id number]) Physical Therapy Assessment Goals 4 Short Term Goal (STG) 03/03 pt is compliant to HEP who does ROM ex 5-6 times a day and amb every hour. [employer] Goal (LTG) Pt will perform progressive HEP with I including flexibility, strengthening, balance and gait to increase overall I by 04/14/2020. LTG Duration 8 weeks 3 Short Term Goal (STG) 03/03 STS in 30 sec = 6 times with hands pushed , walker in front. Mcc Goal (LTG) Pt will perform at least 12 reps sit to stand without UE support in 30 sec to improve functional strength by 2020. LTG Duration 8 weeks 2 Short Term Goal (STG) 03/03 = did not assess Mcc Goal (LTG) Pt will gait train at least 1500 feet in 6 minutes with no AD to improve community ambulation by 04/14/2020. LTG Duration 8 weeks 1 Short Term Goal (STG) 03/03 LEFS = 5 post surgically. Mcc Goal (LTG) Pt will present with LEF score reflecting no more than 20% impairment to improve overall functional strength by 2020. LTG Duration 8 weeks Assessment Summary Assessment Pt was now able to stand w/ feet both flat on ground especially after cueing and edu on posture in mirror. She had imrpoved gait when she focus on posture before starting walking. Inc cane height which improved gait with cane but overall pt's gait is better without cane Physical Therapy Plan Frequency and Duration Frequency of Treatment 2x/Week Duration of Treatment 8 weeks Plan of Care Start Date 02/11/20 Plan of Care End Date 04/14/20 Next Visit Focus/Plan Next Note Type Treatment Note Next Visit Plan cont to progress hip stability , manual for dec pain and improved mobility; assess if pt needs foot lift
--- NOTE | 2020-03-24 11:59 | PT.OTN ---
Current Diagnoses Unilateral primary osteoarthritis, left hip (03/24/20) Physical Therapy Treatment Note PT-OP-A Visit Information Start: 02/11/20 07:31 Freq: Status: Active Protocol: Document 03/24/20 11:20 HH (Rec: 03/24/20 11:58 HH [id number]) Out-Patient Physical Therapy Visit Information Visit Information Visit Type Treatment Note Visit Note pt is 7 mins late Visit Start Time 11:22 Visit Stop Time 12:00 Total Visit Minutes 38 Visit Number 8/9 Number of HEEL ATTACHER Visits 0 PT-OP-B Current Condition Start: 02/11/20 07:31 Freq: Status: Active Protocol: Document 02/11/20 10:35 MB (Rec: 02/11/20 11:17 MB [id number]) Current Condition History of Current Condition Onset Date Greater than 7 years ago Current Complaints Pain in left groin that throbs History of Current Condition Pt reports 7-8/10 left hip pain in anterior and posterior areas. 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 She is now able to use a pole for people to sign their credit card receipts after buying tickets. Pt has a history of left hip pain. She had PT and was told to turn her feet, which has helped the pain. She has to walk far to the bathroom and tends to hurry her pace which seems to decrease the pain. Shortened steps help her symptoms. Sitting, driving and taking large steps increase the front of the left hip pain . Pt sleeps on her right side with pillow between her legs. This helps the deep throbbing pain inside the hip. She is taking Meloxicam in the mornings and aspirin at night before bed. She is able to sleep 8 hours at night. The left hip is stiff in the morning. She can hardly walk at first and it is better after she moves around. Pt was riding as a passenger in the car yesterday and it got so bad that she had to lie in the back. She denies injury. 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 She had a lot of physical jobs. Pt is undergoing left THR . Pt lives with . Pt is going to [employer] to get a rolling walker. She has a high toilet with counter that she can use easily at home. She will look into getting a tub bench or shower chair. She lives in a split level house. She has 8 steps and no railing to enter the home. Prior Treatments and Tests PT for left hip pain 7 years ago Treatment Goals Patient/Caregiver Goals To prepare for surgery. PT-OP-C Subjective Start: 02/11/20 07:31 Freq: Status: Active Protocol: Document 03/24/20 11:20 HH (Rec: 03/24/20 11:58 HH [id number]) OP-PT Subjective Patient Comments Patient Comments Im walking pretty good now especially without the cane. Patient Reported Progress Improving PT-OP-D Balance Start: 02/11/20 07:31 Freq: Status: Active Protocol: Document 02/11/20 10:35 MB (Rec: 02/11/20 15:35 MB [id number]) Tinetti Balance Assessment Scoring and Interpretation Tinetti Impairment Rating from Composite 1 to <20% Impaired (Score 23- Score 27) PT-OP-G Mobility & Gait Start: 02/11/20 07:31 Freq: Status: Active Protocol: Document 02/11/20 10:35 MB (Rec: 02/11/20 14:14 MB [id number]) OP Mobility Evaluation Bed Mobility Rolling Pt can perform bed mobility I, ed to use right foot to hook around left ankle to get leg in and OOB Supine to and from Sit Similar training for use of right foot Transfers Sit to Stand Cues to push up from the mat, to reach back for it and to unweight left foot for sit to stand transfers OP Gait Assessment Gait Gait Assistance Required: Independent Distance (Feet) 75 Assistive Devices Assistive Device None,Front Wheeled Walker Orthotic/Prosthetic Devices or Brace: No Gait Deviations General Gait Pattern Within Normal Limits Comments Gait Comments Pt can gait train I pre-op and ed pt in used of rolling walker for 50'2 with both step -to gait with left foot first and step-through gait. Ed to back up with right foot first with walker to decrease left ER and extension with stepping Stair Climbing Evaluation Evaluation Level of Assist On Stairs Independent Devices Stair Climbing Assistive Devices Left Railing Comments Stair Climbing Comments Stair training with rolling walker to prepare for surgery: Pt backwards, PT supporting walker in the front. Ascend first with right foot, then left foot and then the walker and reverse to descend. Ed pt how to perform with left rail ascend with step-to gait as well. PT-OP-K Range of Motion Start: 02/11/20 07:31 Freq: Status: Active Protocol: Document 03/03/20 11:21 (Rec: 03/03/20 12:10 [id number]) Hip Goniometric Range of Motion Hip Right Active Hip ROM WFL Yes Testing Position Supine Flexion w/Knee Flexed 115 Abduction 23 Left Passive Hip ROM WFL No Testing Position Supine Flexion w/Knee Flexed 95 Extension 0 Abduction 5 Comments pain with extension and abduction PT-OP-M Strength Start: 02/11/20 07:31 Freq: Status: Active Protocol: Document 03/03/20 11:21 (Rec: 03/03/20 12:10 [id number]) Hip Strength Hip Manual Muscle Testing Left Flexion (L2) 3- Fair- Abduction 3+ Fair+ Adduction 4- Good- Comments unable to test extension d/t hip precautions Right Flexion (L2) 5 Normal Extension (S1) 5 Normal Abduction 5 Normal Adduction 5 Normal Knee Strength Knee Manual Muscle Testing Left Flexion (S2) 3+ Fair+ Extension (L3) 4- Good- Right Flexion (S2) 5 Normal Extension (L3) 5 Normal PT-OP-Q Treatments Start: 02/11/20 07:31 Freq: Status: Active Protocol: Document 03/24/20 11:20 (Rec: 03/24/20 11:58 [id number]) Cardio Equipment Recumbent Bicycle Duration (Minutes) 8 Resistance 5 Gym Equipment Shuttle Recovery Unilateral Squats Details B Resistance 37# Shuttle Recovery Platform Stable Reps/Time 10 x 3 Bilateral Squats Resistance 67# Shuttle Recovery Platform Stable Reps/Time 15x2 Therapeutic Exercises Standing Exercises hip hike Standing Exercise Name on 4 in step-focus on abd not add-did not go down to ground Side bilateral Reps/Minutes 10 Comments needs cues on extended L knee standing hip abd Side bilateral Reps/Minutes 8 x2 Comments cues on slow eccentric control Gait Training Gait Activity gait w/o AD Device Used no AD Level of Assistance SBA Surface ground level Distance/Duration 200 x2 Comments pt did well but does show slight L steppage gait on L d/ t LLD PT-OP-T Assessment and Plan Start: 02/11/20 07:31 Freq: Status: Active Protocol: Document 03/24/20 11:20 HH (Rec: 03/24/20 11:58 [id number]) Physical Therapy Assessment Goals 4 Short Term Goal (STG) 03/03 pt is compliant to HEP who does ROM ex 5-6 times a day and amb every hour. Correction Goal (LTG) Pt will perform progressive HEP with I including flexibility, strengthening, balance and gait to increase overall I by 04/14/2020. LTG Duration 8 weeks 3 Short Term Goal (STG) 03/03 STS in 30 sec = 6 times with hands pushed , walker in front. Correction Goal (LTG) Pt will perform at least 12 reps sit to stand without UE support in 30 sec to improve functional strength by 2020. LTG Duration 8 weeks 2 Short Term Goal (STG) 03/03 = did not assess Correction Goal (LTG) Pt will gait train at least 1500 feet in 6 minutes with no AD to improve community ambulation by 04/14/2020. LTG Duration 8 weeks 1 Short Term Goal (STG) 03/03 LEFS = 5 post surgically. Correction Goal (LTG) Pt will present with LEF score reflecting no more than 20% impairment to improve overall functional strength by 2020. LTG Duration 8 weeks Assessment Summary Assessment Pt overall progress well. She is ambualting without AD now but cont to have slight steppage gait on L d/t LLD. Change POC to once a week x 4weeks from March for cont strengthening to increase activity tolerance. Will possibly add customized foot lift next week Physical Therapy Plan Frequency and Duration Frequency of Treatment 1x/Week Duration of Treatment 8 weeks Plan of Care Start Date 02/11/20 Plan of Care End Date 04/14/20 Next Visit Focus/Plan Next Note Type Treatment Note Next Visit Plan cont to progress hip stability , manual for dec pain and improved mobility; assess if pt needs foot lift
--- NOTE | 2020-03-27 11:57 | PT.OTN ---
Current Diagnoses Unilateral primary osteoarthritis, left hip (03/27/20) Physical Therapy Treatment Note PT-OP-A Visit Information Start: 02/11/20 07:31 Freq: Status: Active Protocol: Document 03/27/20 11:19 DCW (Rec: 03/27/20 11:57 DCW [id number]) Out-Patient Physical Therapy Visit Information Visit Information Visit Type Treatment Note Visit Start Time 11:19 Visit Stop Time 12:00 Total Visit Minutes 41 Visit Number 9/ Number of TIRE BUILDER HEAVY SERVICE Visits 0 PT-OP-B Current Condition Start: 02/11/20 07:31 Freq: Status: Active Protocol: Document 02/11/20 10:35 MB (Rec: 02/11/20 11:17 MB [id number]) Current Condition History of Current Condition Onset Date Greater than 7 years ago Current Complaints Pain in left groin that throbs History of Current Condition Pt reports 7-8/10 left hip pain in anterior and posterior areas. 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 She is now able to use a pole for people to sign their credit card receipts after buying tickets. Pt has a history of left hip pain. She had PT and was told to turn her feet, which has helped the pain. She has to walk far to the bathroom and tends to hurry her pace which seems to decrease the pain. Shortened steps help her symptoms. Sitting, driving and taking large steps increase the front of the left hip pain . Pt sleeps on her right side with pillow between her legs. This helps the deep throbbing pain inside the hip. She is taking Meloxicam in the mornings and aspirin at night before bed. She is able to sleep 8 hours at night. The left hip is stiff in the morning. She can hardly walk at first and it is better after she moves around. Pt was riding as a passenger in the car yesterday and it got so bad that she had to lie in the back. She denies injury. 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 She had a lot of physical jobs. Pt is undergoing left THR . Pt lives with . Pt is going to [employer] to get a rolling walker. She has a high toilet with counter that she can use easily at home. She will look into getting a tub bench or shower chair. She lives in a split level house. She has 8 steps and no railing to enter the home. Prior Treatments and Tests PT for left hip pain 7 years ago Treatment Goals Patient/Caregiver Goals To prepare for surgery. PT-OP-C Subjective Start: 02/11/20 07:31 Freq: Status: Active Protocol: Document 03/27/20 11:19 DCW (Rec: 03/27/20 11:57 DCW [id number]) OP-PT Subjective Patient Comments Patient Comments I'm actually really good. I had to go buy a car two days ago, and it really wore me out . PT-OP-D Balance Start: 02/11/20 07:31 Freq: Status: Active Protocol: Document 02/11/20 10:35 MB (Rec: 02/11/20 15:35 MB [id number]) Tinetti Balance Assessment Scoring and Interpretation Tinetti Impairment Rating from Composite 1 to <20% Impaired (Score 23- Score 27) PT-OP-G Mobility & Gait Start: 02/11/20 07:31 Freq: Status: Active Protocol: Document 02/11/20 10:35 MB (Rec: 02/11/20 14:14 MB [id number]) OP Mobility Evaluation Bed Mobility Rolling Pt can perform bed mobility I, ed to use right foot to hook around left ankle to get leg in and OOB Supine to and from Sit Similar training for use of right foot Transfers Sit to Stand Cues to push up from the mat, to reach back for it and to unweight left foot for sit to stand transfers OP Gait Assessment Gait Gait Assistance Required: Independent Distance (Feet) 75 Assistive Devices Assistive Device None,Front Wheeled Walker Orthotic/Prosthetic Devices or Brace: No Gait Deviations General Gait Pattern Within Normal Limits Comments Gait Comments Pt can gait train I pre-op and ed pt in used of rolling walker for 50'2 with both step -to gait with left foot first and step-through gait. Ed to back up with right foot first with walker to decrease left ER and extension with stepping Stair Climbing Evaluation Evaluation Level of Assist On Stairs Independent Devices Stair Climbing Assistive Devices Left Railing Comments Stair Climbing Comments Stair training with rolling walker to prepare for surgery: Pt backwards, PT supporting walker in the front. Ascend first with right foot, then left foot and then the walker and reverse to descend. Ed pt how to perform with left rail ascend with step-to gait as well. PT-OP-K Range of Motion Start: 02/11/20 07:31 Freq: Status: Active Protocol: Document 03/03/20 11:21 HH (Rec: 03/03/20 12:10 [id number]) Hip Goniometric Range of Motion Hip Right Active Hip ROM WFL Yes Testing Position Supine Flexion w/Knee Flexed 115 Abduction 23 Left Passive Hip ROM WFL No Testing Position Supine Flexion w/Knee Flexed 95 Extension 0 Abduction 5 Comments pain with extension and abduction PT-OP-M Strength Start: 02/11/20 07:31 Freq: Status: Active Protocol: Document 03/03/20 11:21 HH (Rec: 03/03/20 12:10 [id number]) Hip Strength Hip Manual Muscle Testing Left Flexion (L2) 3- Fair- Abduction 3+ Fair+ Adduction 4- Good- Comments unable to test extension d/t hip precautions Right Flexion (L2) 5 Normal Extension (S1) 5 Normal Abduction 5 Normal Adduction 5 Normal Knee Strength Knee Manual Muscle Testing Left Flexion (S2) 3+ Fair+ Extension (L3) 4- Good- Right Flexion (S2) 5 Normal Extension (L3) 5 Normal PT-OP-Q Treatments Start: 02/11/20 07:31 Freq: Status: Active Protocol: Document 03/27/20 11:19 DCW (Rec: 03/27/20 11:57 DCW [id number]) Cardio Equipment Recumbent Elliptical (Biodex) Duration (Minutes) 6 Resistance 6 Seat Position 7 Gym Equipment Shuttle Recovery Unilateral Squats Details B Resistance 37# Shuttle Recovery Platform Stable Reps/Time 10 x 3 Bilateral Squats Resistance 67# Shuttle Recovery Platform Stable Reps/Time 15x2 Therapeutic Exercises Standing Exercises hip hike Standing Exercise Name on 4 in step-focus on abd not add-did not go down to ground Side bilateral Reps/Minutes 10 Comments needs cues on extended L knee standing hip abd Side bilateral Reps/Minutes 8 x2 Comments cues on slow eccentric control PT-OP-T Assessment and Plan Start: 02/11/20 07:31 Freq: Status: Active Protocol: Document 03/27/20 11:19 DCW (Rec: 03/27/20 11:57 DCW [id number]) Physical Therapy Assessment Goals 4 Short Term Goal (STG) 03/03 pt is compliant to HEP who does ROM ex 5-6 times a day and amb every hour. Retirement Goal (LTG) Pt will perform progressive HEP with I including flexibility, strengthening, balance and gait to increase overall I by 04/14/2020. LTG Duration Met 3 Short Term Goal (STG) 03/03 STS in 30 sec = 6 times with hands pushed , walker in front. Store Loss Prevention Manager Goal (LTG) Pt will perform at least 12 reps sit to stand without UE support in 30 sec to improve functional strength by 2020. LTG Duration 8 weeks 2 Short Term Goal (STG) 03/03 = did not assess Retirement Goal (LTG) Pt will gait train at least 1500 feet in 6 minutes with no AD to improve community ambulation by 04/14/2020. LTG Duration 8 weeks 1 Short Term Goal (STG) 03/03 LEFS = 5 post surgically. Store Loss Prevention Manager Goal (LTG) Pt will present with LEF score reflecting no more than 20% impairment to improve overall functional strength by 2020. 03/27/20 - LTG Duration 8 weeks Assessment Summary Assessment Pt continues to show good progression, has great understanding of continued hip precautions, responding well to therapy. Physical Therapy Plan Frequency and Duration Frequency of Treatment 1x/Week Duration of Treatment 8 weeks Plan of Care Start Date 02/11/20 Plan of Care End Date 04/14/20 Next Visit Focus/Plan Next Note Type Treatment Note Next Visit Plan cont to progress hip stability , manual for dec pain and improved mobility; assess if pt needs foot lift
--- NOTE | 2020-04-03 12:21 | PT.OTN ---
Current Diagnoses Unilateral primary osteoarthritis, left hip (04/03/20) Physical Therapy Treatment Note PT-OP-A Visit Information Start: 02/11/20 07:31 Freq: Status: Active Protocol: Document 04/03/20 11:20 HH (Rec: 04/03/20 12:21 HH [id number]) Out-Patient Physical Therapy Visit Information Visit Information Visit Type Treatment Note Visit Start Time 11:19 Visit Stop Time 12:00 Total Visit Minutes 41 Visit Number 10 Number of FAMILY HELPER Visits 0 PT-OP-B Current Condition Start: 02/11/20 07:31 Freq: Status: Active Protocol: Document 02/11/20 10:35 MB (Rec: 02/11/20 11:17 MB [id number]) Current Condition History of Current Condition Onset Date Greater than 7 years ago Current Complaints Pain in left groin that throbs History of Current Condition Pt reports 7-8/10 left hip pain in anterior and posterior areas. 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 She is now able to use a pole for people to sign their credit card receipts after buying tickets. Pt has a history of left hip pain. She had PT and was told to turn her feet, which has helped the pain. She has to walk far to the bathroom and tends to hurry her pace which seems to decrease the pain. Shortened steps help her symptoms. Sitting, driving and taking large steps increase the front of the left hip pain . Pt sleeps on her right side with pillow between her legs. This helps the deep throbbing pain inside the hip. She is taking Meloxicam in the mornings and aspirin at night before bed. She is able to sleep 8 hours at night. The left hip is stiff in the morning. She can hardly walk at first and it is better after she moves around. Pt was riding as a passenger in the car yesterday and it got so bad that she had to lie in the back. She denies injury. 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 She had a lot of physical jobs. Pt is undergoing left THR . Pt lives with . Pt is going to [facility] to get a rolling walker. She has a high toilet with counter that she can use easily at home. She will look into getting a tub bench or shower chair. She lives in a split level house. She has 8 steps and no railing to enter the home. Prior Treatments and Tests PT for left hip pain 7 years ago Treatment Goals Patient/Caregiver Goals To prepare for surgery. PT-OP-C Subjective Start: 02/11/20 07:31 Freq: Status: Active Protocol: Document 04/03/20 11:20 HH (Rec: 04/03/20 12:21 HH [id number]) OP-PT Subjective Patient Comments Patient Comments I cant walk for long distance because it tends to hurt but overall mike been doing pretty good. I had a f/u with surgeon too and he does not recommend to put shoe lift and should wait for at least 6 months to see the progress. Patient Reported Progress Improving PT-OP-D Balance Start: 02/11/20 07:31 Freq: Status: Active Protocol: Document 02/11/20 10:35 MB (Rec: 02/11/20 15:35 MB [id number]) Tinetti Balance Assessment Scoring and Interpretation Tinetti Impairment Rating from Composite 1 to <20% Impaired (Score 23- Score 27) PT-OP-G Mobility & Gait Start: 02/11/20 07:31 Freq: Status: Active Protocol: Document 02/11/20 10:35 MB (Rec: 02/11/20 14:14 MB [id number]) OP Mobility Evaluation Bed Mobility Rolling Pt can perform bed mobility I, ed to use right foot to hook around left ankle to get leg in and OOB Supine to and from Sit Similar training for use of right foot Transfers Sit to Stand Cues to push up from the mat, to reach back for it and to unweight left foot for sit to stand transfers OP Gait Assessment Gait Gait Assistance Required: Independent Distance (Feet) 75 Assistive Devices Assistive Device None,Front Wheeled Walker Orthotic/Prosthetic Devices or Brace: No Gait Deviations General Gait Pattern Within Normal Limits Comments Gait Comments Pt can gait train I pre-op and ed pt in used of rolling walker for 50'2 with both step -to gait with left foot first and step-through gait. Ed to back up with right foot first with walker to decrease left ER and extension with stepping Stair Climbing Evaluation Evaluation Level of Assist On Stairs Independent Devices Stair Climbing Assistive Devices Left Railing Comments Stair Climbing Comments Stair training with rolling walker to prepare for surgery: Pt backwards, PT supporting walker in the front. Ascend first with right foot, then left foot and then the walker and reverse to descend. Ed pt how to perform with left rail ascend with step-to gait as well. PT-OP-K Range of Motion Start: 02/11/20 07:31 Freq: Status: Active Protocol: Document 03/03/20 11:21 (Rec: 03/03/20 12:10 [id number]) Hip Goniometric Range of Motion Hip Right Active Hip ROM WFL Yes Testing Position Supine Flexion w/Knee Flexed 115 Abduction 23 Left Passive Hip ROM WFL No Testing Position Supine Flexion w/Knee Flexed 95 Extension 0 Abduction 5 Comments pain with extension and abduction PT-OP-M Strength Start: 02/11/20 07:31 Freq: Status: Active Protocol: Document 03/03/20 11:21 (Rec: 03/03/20 12:10 [id number]) Hip Strength Hip Manual Muscle Testing Left Flexion (L2) 3- Fair- Abduction 3+ Fair+ Adduction 4- Good- Comments unable to test extension d/t hip precautions Right Flexion (L2) 5 Normal Extension (S1) 5 Normal Abduction 5 Normal Adduction 5 Normal Knee Strength Knee Manual Muscle Testing Left Flexion (S2) 3+ Fair+ Extension (L3) 4- Good- Right Flexion (S2) 5 Normal Extension (L3) 5 Normal PT-OP-Q Treatments Start: 02/11/20 07:31 Freq: Status: Active Protocol: Document 04/03/20 11:20 (Rec: 04/03/20 12:21 [id number]) Cardio Equipment Bicycle (Upright) Duration (Minutes) 5 Resistance 5 Gym Equipment Shuttle Recovery Unilateral Squats Details B Resistance #50 Shuttle Recovery Platform Stable Reps/Time 10 x 3 Bilateral Squats Resistance 67# Shuttle Recovery Platform Stable Reps/Time 15x2 Therapeutic Exercises Standing Exercises marching in place Side bilateral Reps/Minutes 2 mins step up Standing Exercise Name no UE with RLE, 1UE support for LLE Side bilateral Equipment Used 4 inch step Comments less stable noted at LLE standing hip abd Side bilateral Reps/Minutes 8 x2 Comments cues on slow eccentric control Manual Therapy Treatment Soft Tissue Mobilization quads Mobilization Type Rolling Intensity/Depth Moderate Body Position Supine Comments tenderness to pressure noted at distal and proximal quads. Educated pt to use rolling pin at home to reduce tightness PT-OP-T Assessment and Plan Start: 02/11/20 07:31 Freq: Status: Active Protocol: Document 04/03/20 11:20 HH (Rec: 04/03/20 12:21 HH [id number]) Physical Therapy Assessment Goals 4 Short Term Goal (STG) 03/03 pt is compliant to HEP who does ROM ex 5-6 times a day and amb every hour. Cream Maker Goal (LTG) Pt will perform progressive HEP with I including flexibility, strengthening, balance and gait to increase overall I by 04/14/2020. LTG Duration Met 3 Short Term Goal (STG) 03/03 STS in 30 sec = 6 times with hands pushed , walker in front. Cream Maker Goal (LTG) Pt will perform at least 12 reps sit to stand without UE support in 30 sec to improve functional strength by 2020. LTG Duration 8 weeks 2 Short Term Goal (STG) 03/03 = did not assess Fdc Goal (LTG) Pt will gait train at least 1500 feet in 6 minutes with no AD to improve community ambulation by 04/14/2020. LTG Duration 8 weeks 1 Short Term Goal (STG) 03/03 LEFS = 5 post surgically. Fdc Goal (LTG) Pt will present with LEF score reflecting no more than 20% impairment to improve overall functional strength by 2020. 03/27/20 - 3080 LTG Duration 8 weeks Assessment Summary Assessment Pt progress very well since surgery. Her AROM = WFL and able to amb without AD in community for a few weeks now. She still has weakness with her LLE who has difficulty for prolonged standing and walking. However, she is returning to work next tuesday and will cont monitor her progress and activity tolerance. Physical Therapy Plan Frequency and Duration Frequency of Treatment 1x/Week Duration of Treatment 8 weeks Plan of Care Start Date 02/11/20 Plan of Care End Date 04/14/20 Next Visit Focus/Plan Next Note Type Treatment Note Next Visit Plan cont to progress hip stability , manual for dec pain and improved mobility; assess if pt needs foot lift
--- NOTE | 2020-04-10 13:45 | PT.OTN ---
Current Diagnoses Unilateral primary osteoarthritis, left hip (04/10/20) Physical Therapy Treatment Note PT-OP-A Visit Information Start: 02/11/20 07:31 Freq: Status: Active Protocol: Document 04/10/20 13:02 SP (Rec: 04/10/20 14:08 SP [id number]) Out-Patient Physical Therapy Visit Information Visit Information Visit Type Treatment Note Visit Start Time 13:02 Visit Stop Time 13:45 Total Visit Minutes 43 Visit Number 11 Number of ATTENDING PATHOLOGIST Visits 1 PT-OP-B Current Condition Start: 02/11/20 07:31 Freq: Status: Active Protocol: Document 02/11/20 10:35 MB (Rec: 02/11/20 11:17 MB [id number]) Current Condition History of Current Condition Onset Date Greater than 7 years ago Current Complaints Pain in left groin that throbs History of Current Condition Pt reports 7-8/10 left hip pain in anterior and posterior areas. 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 She is now able to use a pole for people to sign their credit card receipts after buying tickets. Pt has a history of left hip pain. She had PT and was told to turn her feet, which has helped the pain. She has to walk far to the bathroom and tends to hurry her pace which seems to decrease the pain. Shortened steps help her symptoms. Sitting, driving and taking large steps increase the front of the left hip pain . Pt sleeps on her right side with pillow between her legs. This helps the deep throbbing pain inside the hip. She is taking Meloxicam in the mornings and aspirin at night before bed. She is able to sleep 8 hours at night. The left hip is stiff in the morning. She can hardly walk at first and it is better after she moves around. Pt was riding as a passenger in the car yesterday and it got so bad that she had to lie in the back. She denies injury. 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 She had a lot of physical jobs. Pt is undergoing left THR . Pt lives with . Pt is going to [facility] to get a rolling walker. She has a high toilet with counter that she can use easily at home. She will look into getting a tub bench or shower chair. She lives in a split level house. She has 8 steps and no railing to enter the home. Prior Treatments and Tests PT for left hip pain 7 years ago Treatment Goals Patient/Caregiver Goals To prepare for surgery. PT-OP-C Subjective Start: 02/11/20 07:31 Freq: Status: Active Protocol: Document 04/10/20 13:02 SP (Rec: 04/10/20 14:08 SP [id number]) OP-PT Subjective Patient Comments Patient Comments Pt reported worked 10 hrs yesterday, tried to sit at times but was pretty busy at [employer]. . Post op . Pt stated feels pinching anterior L hip. PT-OP-D Balance Start: 02/11/20 07:31 Freq: Status: Active Protocol: Document 02/11/20 10:35 MB (Rec: 02/11/20 15:35 MB [id number]) Tinetti Balance Assessment Scoring and Interpretation Tinetti Impairment Rating from Composite 1 to <20% Impaired (Score 23- Score 27) PT-OP-G Mobility & Gait Start: 02/11/20 07:31 Freq: Status: Active Protocol: Document 02/11/20 10:35 MB (Rec: 02/11/20 14:14 MB [id number]) OP Mobility Evaluation Bed Mobility Rolling Pt can perform bed mobility I, ed to use right foot to hook around left ankle to get leg in and OOB Supine to and from Sit Similar training for use of right foot Transfers Sit to Stand Cues to push up from the mat, to reach back for it and to unweight left foot for sit to stand transfers OP Gait Assessment Gait Gait Assistance Required: Independent Distance (Feet) 75 Assistive Devices Assistive Device None,Front Wheeled Walker Orthotic/Prosthetic Devices or Brace: No Gait Deviations General Gait Pattern Within Normal Limits Comments Gait Comments Pt can gait train I pre-op and ed pt in used of rolling walker for 50'2 with both step -to gait with left foot first and step-through gait. Ed to back up with right foot first with walker to decrease left ER and extension with stepping Stair Climbing Evaluation Evaluation Level of Assist On Stairs Independent Devices Stair Climbing Assistive Devices Left Railing Comments Stair Climbing Comments Stair training with rolling walker to prepare for surgery: Pt backwards, PT supporting walker in the front. Ascend first with right foot, then left foot and then the walker and reverse to descend. Ed pt how to perform with left rail ascend with step-to gait as well. PT-OP-K Range of Motion Start: 02/11/20 07:31 Freq: Status: Active Protocol: Document 03/03/20 11:21 HH (Rec: 03/03/20 12:10 [id number]) Hip Goniometric Range of Motion Hip Right Active Hip ROM WFL Yes Testing Position Supine Flexion w/Knee Flexed 115 Abduction 23 Left Passive Hip ROM WFL No Testing Position Supine Flexion w/Knee Flexed 95 Extension 0 Abduction 5 Comments pain with extension and abduction PT-OP-M Strength Start: 02/11/20 07:31 Freq: Status: Active Protocol: Document 03/03/20 11:21 HH (Rec: 03/03/20 12:10 [id number]) Hip Strength Hip Manual Muscle Testing Left Flexion (L2) 3- Fair- Abduction 3+ Fair+ Adduction 4- Good- Comments unable to test extension d/t hip precautions Right Flexion (L2) 5 Normal Extension (S1) 5 Normal Abduction 5 Normal Adduction 5 Normal Knee Strength Knee Manual Muscle Testing Left Flexion (S2) 3+ Fair+ Extension (L3) 4- Good- Right Flexion (S2) 5 Normal Extension (L3) 5 Normal PT-OP-Q Treatments Start: 02/11/20 07:31 Freq: Status: Active Protocol: Document 04/10/20 13:02 SP (Rec: 04/10/20 14:08 SP [id number]) Therapeutic Exercises Supine Exercises glut bridge Resistance Tb #1 loop Reps/Minutes x10 Comments cued neutral pelvis and pelvic tilt Supine Exercise Name post Reps/Minutes x5 Standing Exercises cone taps Standing Exercise Name 12, 2, 3, 5 o'clock Side bilateral Equipment Used 4 cones Reps/Minutes x3 each LE Comments cued upright posture, no hip ext, improved SLS balance SLS Side bilateral Equipment Used 30 sec Reps/Minutes x3 B Comments cued upright posture, glut facil to allow COG over MACK foot triangle to inc step up Standing Exercise Name no UE with RLE, 1UE support for LLE Side bilateral Equipment Used 4 inch step Comments hip hinge glut facilitation and opp toe touch floor Manual Therapy Treatment Soft Tissue Mobilization scar mob Body Location L anterior hip Mobilization Type Cross-Friction,Myofascial Release,Rolling Intensity/Depth Moderate Body Position Supine Comments manual and education on scar to decrease tightness and discomfort. Neuro Re-Education Treatment Balance Activities jerome Details step over step Surface stable Equipment 5 hurdles Reps/Duration 3 laps Comments cued upright posture, glut facil to allow COG over MACK foot triangle to increase stance time. PT-OP-T Assessment and Plan Start: 02/11/20 07:31 Freq: Status: Active Protocol: Document 04/10/20 13:02 SP (Rec: 04/10/20 14:08 SP [id number]) Physical Therapy Assessment Goals 4 Short Term Goal (STG) 03/03 pt is compliant to HEP who does ROM ex 5-6 times a day and amb every hour. Jail Goal (LTG) Pt will perform progressive HEP with I including flexibility, strengthening, balance and gait to increase overall I by 04/14/2020. LTG Duration Met 3 Short Term Goal (STG) 03/03 STS in 30 sec = 6 times with hands pushed , walker in front. Assembly Person Goal (LTG) Pt will perform at least 12 reps sit to stand without UE support in 30 sec to improve functional strength by 2020. LTG Duration 8 weeks 2 Short Term Goal (STG) 03/03 = did not assess Jail Goal (LTG) Pt will gait train at least 1500 feet in 6 minutes with no AD to improve community ambulation by 04/14/2020. LTG Duration 8 weeks 1 Short Term Goal (STG) 03/03 LEFS = 5 post surgically. Jail Goal (LTG) Pt will present with LEF score reflecting no more than 20% impairment to improve overall functional strength by 2020. 03/27/20 - LTG Duration 8 weeks Assessment Summary Assessment Pt demonstrated trendelenburg gait, post elevate on LLE and hip depression on R during RLE contact forward. Pt stated say ortho and he wants to wait on adding heel lift on R for now to allow body to adjust and if not then later adding lift. Pt improved with glut facilitation with cues for hip sit back and shorten ROM lateral step down post cues and demonstration. Carried over during jerome stepping and stance balance and cone taps added for home. Recommended find a balance in standing/ sitting at work and manual STMs to scar (tight) to allow decreased anterior hip tightness. Physical Therapy Plan Frequency and Duration Frequency of Treatment 1x/Week Duration of Treatment 8 weeks Plan of Care Start Date 02/11/20 Plan of Care End Date 04/14/20 Therapeutic Interventions Therapeutic Interventions Balance Training,Canalithic Repositioning,Coordination Training,Gait Training,Home Exercise Program,Manual Therapy,Neuromuscular Re- education,Patient/Caregiver Education,Self-Care/Home Management,Sensory Integration ,Soft Tissue Mobilization, Taping,Therapeutic Activities, Therapeutic Exercises Modalities Cold Pack/Ice Massage,Electric Stimulation,Hot Packs, Ultrasound Next Visit Focus/Plan Next Note Type Treatment Note Next Visit Plan Assess and continue scar mobility, HEP last tx and gait next tx. cont to progress per PT POC: hip stability, manual for dec pain and improved mobility; assess if pt needs foot lift
--- NOTE | 2020-04-14 17:27 | PT.OPPOC ---
Physical, Occupational & Speech Therapy At [facility] Current Diagnoses Unilateral primary osteoarthritis, left hip (04/14/20) Visit Care Team Role Provider Type JEFFERY Cole Primary Care Provider Advanced Computer Engineering Technologist Specialty: Medical Address: [address] [place] [address], [id number] Email: [email or web address] Javier Nielsen MD Attending Provider Physician Referring Provider Specialty: Orthopedic Surgery Address: [address] [place] [address], [id number] Email: [email or web address] Plan Of Care PT-OP-T Assessment and Plan Start: 02/11/20 07:31 Freq: Status: Active Protocol: Document 04/14/20 17:17 HH (Rec: 04/14/20 17:27 [id number]) Physical Therapy Assessment Goals climb stair Impairment with 1 UE noted for step over pattern Certified Nuclear Medicine Technologist Goal (LTG) pt will be able to climb stairs with step over pattern without UE support consistently LTG Duration 8 weeks 4 Short Term Goal (STG) 03/03 pt is compliant to HEP who does ROM ex 5-6 times a day and amb every hour. Certified Nuclear Medicine Technologist Goal (LTG) 04/14 goal pt is indepednent with HEP now Pt will perform progressive HEP with I including flexibility, strengthening, balance and gait to increase overall I by 04/14/2020. LTG Duration Met 3 Short Term Goal (STG) 03/03 STS in 30 sec = 6 times with hands pushed , walker in front. Jail Goal (LTG) Pt will perform at least 12 reps sit to stand without UE support in 30 sec to improve functional strength by 2020. LTG Duration 8 weeks 2 Short Term Goal (STG) 03/03 = did not assess assess on 04/21 Certified Nuclear Medicine Technologist Goal (LTG) Pt will gait train at least 1500 feet in 6 minutes with no AD to improve community ambulation by 04/14/2020. LTG Duration 8 weeks 1 Short Term Goal (STG) 03/03 LEFS = 5 post surgically. 04/14 = assess on Certified Nuclear Medicine Technologist Goal (LTG) Pt will present with LEF score reflecting no more than 20% impairment to improve overall functional strength by 2020. 03/27/20 - LTG Duration 8 weeks Progress Towards Goals Progress Towards Goals Progressing Toward Goals,Slow Progress due to Activity Tolerance Assessment Summary Assessment Progress note. Pt has been progressing very well since evaluation. She returns to her full work schedule but has soreness after prolonged standing. There's still scar tightness which might contribute to her anterior hip pain. Her L LE balance and strength is somewhat 80% of her R LE. Pt will cont benefit from skilled therapy 1/wk til end of feburary in order for her to fullly return to her work and hobbies without discomfort. Physical Therapy Plan Frequency and Duration Frequency of Treatment 1x/Week Duration of Treatment 8 weeks Plan of Care Start Date 04/14/20 Plan of Care End Date 06/13/20 Therapeutic Interventions Therapeutic Interventions Balance Training,Canalithic Repositioning,Coordination Training,Gait Training,Home Exercise Program,Manual Therapy,Neuromuscular Re- education,Patient/Caregiver Education,Self-Care/Home Management,Sensory Integration ,Soft Tissue Mobilization, Taping,Therapeutic Activities, Therapeutic Exercises Modalities Cold Pack/Ice Massage,Electric Stimulation,Hot Packs, Ultrasound Next Visit Focus/Plan Next Note Type Treatment Note Next Visit Plan continue scar mobility, HEP last tx and gait next tx. step up 6 stair climbing SLS stability and balance Plan of Care Dates Plan of Care Start Date 04/14/20 Plan of Care End Date 06/13/20 Electronically Signed by: Susy Gilmore PT 04/14/20 [id number] Please Sign and Return: I have reviewed this Plan of Care and certify that the skilled therapy services above are required to meet the patient?s needs. Physician Signature Date Printed Name and Credentials Clinical Instructor Signature Printed Name and Credentials
--- NOTE | 2020-04-14 17:27 | PT.OTN ---
Current Diagnoses Unilateral primary osteoarthritis, left hip (04/14/20) Physical Therapy Treatment Note PT-OP-A Visit Information Start: 02/11/20 07:31 Freq: Status: Active Protocol: Document 04/14/20 17:17 HH (Rec: 04/14/20 17:27 HH [email or web address]) Out-Patient Physical Therapy Visit Information Visit Information Visit Type Progress Note Visit Start Time 13:02 Visit Stop Time 13:45 Total Visit Minutes 43 Visit Number 12 Number of FEATHER DUSTER WINDER Visits 0 PT-OP-B Current Condition Start: 02/11/20 07:31 Freq: Status: Active Protocol: Document 02/11/20 10:35 MB (Rec: 02/11/20 11:17 MB [id number]) Current Condition History of Current Condition Onset Date Greater than 7 years ago Current Complaints Pain in left groin that throbs History of Current Condition Pt reports 7-8/10 left hip pain in anterior and posterior areas. 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 She is now able to use a pole for people to sign their credit card receipts after buying tickets. Pt has a history of left hip pain. She had PT and was told to turn her feet, which has helped the pain. She has to walk far to the bathroom and tends to hurry her pace which seems to decrease the pain. Shortened steps help her symptoms. Sitting, driving and taking large steps increase the front of the left hip pain . Pt sleeps on her right side with pillow between her legs. This helps the deep throbbing pain inside the hip. She is taking Meloxicam in the mornings and aspirin at night before bed. She is able to sleep 8 hours at night. The left hip is stiff in the morning. She can hardly walk at first and it is better after she moves around. Pt was riding as a passenger in the car yesterday and it got so bad that she had to lie in the back. She denies injury. 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 She had a lot of physical jobs. Pt is undergoing left THR . Pt lives with . Pt is going [facility] get a [facility] walker. She has a high toilet with counter that she can use easily at home. She will look into getting a tub bench or shower chair. She lives in a split level house. She has 8 steps and no railing to enter the home. Prior Treatments and Tests PT for left hip pain 7 years ago Treatment Goals Patient/Caregiver Goals To prepare for surgery. PT-OP-C Subjective Start: 02/11/20 07:31 Freq: Status: Active Protocol: Document 04/14/20 17:17 HH (Rec: 04/14/20 17:27 HH [email or web address]) OP-PT Subjective Patient Comments Patient Comments I worked 4days last week and it was so busy and my hip did get sore. The scar massage from last visit was very helpful. Patient Reported Progress Improving PT-OP-D Balance Start: 02/11/20 07:31 Freq: Status: Active Protocol: Document 02/11/20 10:35 MB (Rec: 02/11/20 15:35 MB [id number]) Tinetti Balance Assessment Scoring and Interpretation Tinetti Impairment Rating from Composite 1 to <20% Impaired (Score 23- Score 27) PT-OP-G Mobility & Gait Start: 02/11/20 07:31 Freq: Status: Active Protocol: Document 02/11/20 10:35 MB (Rec: 02/11/20 14:14 MB [id number]) OP Mobility Evaluation Bed Mobility Rolling Pt can perform bed mobility I, ed to use right foot to hook around left ankle to get leg in and OOB Supine to and from Sit Similar training for use of right foot Transfers Sit to Stand Cues to push up from the mat, to reach back for it and to unweight left foot for sit to stand transfers OP Gait Assessment Gait Gait Assistance Required: Independent Distance (Feet) 75 Assistive Devices Assistive Device None,Front Wheeled Walker Orthotic/Prosthetic Devices or Brace: No Gait Deviations General Gait Pattern Within Normal Limits Comments Gait Comments Pt can gait train I pre-op and ed pt in used of rolling walker for 50'2 with both step -to gait with left foot first and step-through gait. Ed to back up with right foot first with walker to decrease left ER and extension with stepping Stair Climbing Evaluation Evaluation Level of Assist On Stairs Independent Devices Stair Climbing Assistive Devices Left Railing Comments Stair Climbing Comments Stair training with rolling walker to prepare for surgery: Pt backwards, PT supporting walker in the front. Ascend first with right foot, then left foot and then the walker and reverse to descend. Ed pt how to perform with left rail ascend with step-to gait as well. PT-OP-K Range of Motion Start: 02/11/20 07:31 Freq: Status: Active Protocol: Document 03/03/20 11:21 (Rec: 03/03/20 12:10 [id number]) Hip Goniometric Range of Motion Hip Right Active Hip ROM WFL Yes Testing Position Supine Flexion w/Knee Flexed 115 Abduction 23 Left Passive Hip ROM WFL No Testing Position Supine Flexion w/Knee Flexed 95 Extension 0 Abduction 5 Comments pain with extension and abduction PT-OP-M Strength Start: 02/11/20 07:31 Freq: Status: Active Protocol: Document 03/03/20 11:21 (Rec: 03/03/20 12:10 [id number]) Hip Strength Hip Manual Muscle Testing Left Flexion (L2) 3- Fair- Abduction 3+ Fair+ Adduction 4- Good- Comments unable to test extension d/t hip precautions Right Flexion (L2) 5 Normal Extension (S1) 5 Normal Abduction 5 Normal Adduction 5 Normal Knee Strength Knee Manual Muscle Testing Left Flexion (S2) 3+ Fair+ Extension (L3) 4- Good- Right Flexion (S2) 5 Normal Extension (L3) 5 Normal PT-OP-Q Treatments Start: 02/11/20 07:31 Freq: Status: Active Protocol: Document 04/14/20 17:17 (Rec: 04/14/20 17:27 [email or web address]) Cardio Equipment Bicycle (Upright) Duration (Minutes) 8 Resistance 5 Therapeutic Exercises Supine Exercises glut bridge Resistance Tb #1 loop Reps/Minutes x10 Comments cued neutral pelvis and Standing Exercises cone taps Standing Exercise Name 12, 2, 3, 5 o'clock Side bilateral Equipment Used 4 cones Reps/Minutes x3 each LE Comments cued upright posture, no hip ext, improved SLS balance SLS Side bilateral Equipment Used 30 sec Reps/Minutes x3 B Comments cued upright posture, glut facil to allow COG over MACK foot triangle to inc step up Standing Exercise Name 1UE support for LLE Side bilateral Equipment Used 6 inch step Comments hip hinge glut facilitation and opp toe touch floor standing hip abd Side bilateral Reps/Minutes 8 x2 Comments cues on slow eccentric control Therapeutic Activity Therapeutic Activity stair climb Comments without rails 4 x 4 sets 6 x 3 sets Manual Therapy Treatment Soft Tissue Mobilization scar mob Body Location L anterior hip Mobilization Type Cross-Friction,Myofascial Release,Rolling Intensity/Depth Moderate Body Position Supine Comments manual and education on scar to decrease tightness and discomfort. (later tighter than R) Neuro Re-Education Treatment Balance Activities jerome Details step over step Surface stable Equipment 5 hurdles Reps/Duration 3 laps Comments cued upright posture, glut facil to allow COG over MACK foot triangle to increase stance time. PT-OP-T Assessment and Plan Start: 02/11/20 07:31 Freq: Status: Active Protocol: Document 04/14/20 17:17 (Rec: 04/14/20 17:27 [email or web address]) Physical Therapy Assessment Goals climb stair Impairment with 1 UE noted for step over pattern Telecommunications Clerk Goal (LTG) pt will be able to climb stairs with step over pattern without UE support consistently LTG Duration 8 weeks 4 Short Term Goal (STG) 03/03 pt is compliant to HEP who does ROM ex 5-6 times a day and amb every hour. Penitentiary Goal (LTG) 04/14 goal pt is indepednent with HEP now Pt will perform progressive HEP with I including flexibility, strengthening, balance and gait to increase overall I by 04/14/2020. LTG Duration Met 3 Short Term Goal (STG) 03/03 STS in 30 sec = 6 times with hands pushed , walker in front. Penitentiary Goal (LTG) Pt will perform at least 12 reps sit to stand without UE support in 30 sec to improve functional strength by 2020. LTG Duration 8 weeks 2 Short Term Goal (STG) 03/03 = did not assess assess on 04/21 Penitentiary Goal (LTG) Pt will gait train at least 1500 feet in 6 minutes with no AD to improve community ambulation by 04/14/2020. LTG Duration 8 weeks 1 Short Term Goal (STG) 03/03 LEFS = 5 post surgically. 04/14 = assess on Telecommunications Clerk Goal (LTG) Pt will present with LEF score reflecting no more than 20% impairment to improve overall functional strength by 2020. 03/27/20 - LTG Duration 8 weeks Progress Towards Goals Progress Towards Goals Progressing Toward Goals,Slow Progress due to Activity Tolerance Assessment Summary Assessment Progress note. Pt has been progressing very well since evaluation. She returns to her full work schedule but has soreness after prolonged standing. There's still scar tightness which might contribute to her anterior hip pain. Her L LE balance and strength is somewhat 80% of her R LE. Pt will cont benefit from skilled therapy 1/wk til end of feburary in order for her to fullly return to her work and hobbies without discomfort. Physical Therapy Plan Frequency and Duration Frequency of Treatment 1x/Week Duration of Treatment 8 weeks Plan of Care Start Date 04/14/20 Plan of Care End Date 06/13/20 Therapeutic Interventions Therapeutic Interventions Balance Training,Canalithic Repositioning,Coordination Training,Gait Training,Home Exercise Program,Manual Therapy,Neuromuscular Re- education,Patient/Caregiver Education,Self-Care/Home Management,Sensory Integration ,Soft Tissue Mobilization, Taping,Therapeutic Activities, Therapeutic Exercises Modalities Cold Pack/Ice Massage,Electric Stimulation,Hot Packs, Ultrasound Next Visit Focus/Plan Next Note Type Treatment Note Next Visit Plan continue scar mobility, HEP last tx and gait next tx. step up 6 stair climbing SLS stability and balance
--- NOTE | 2020-04-21 11:19 | PT.OTN ---
Current Diagnoses Unilateral primary osteoarthritis, left hip (04/21/20) Physical Therapy Treatment Note PT-OP-A Visit Information Start: 02/11/20 07:31 Freq: Status: Active Protocol: Document 04/21/20 10:34 HH (Rec: 04/21/20 11:19 HH [id number]) Out-Patient Physical Therapy Visit Information Visit Information Visit Type Treatment Note Visit Start Time 10:32 Visit Stop Time 11:15 Total Visit Minutes 43 Visit Number 13 Number of BOILER COVERER Visits 0 PT-OP-B Current Condition Start: 02/11/20 07:31 Freq: Status: Active Protocol: Document 02/11/20 10:35 MB (Rec: 02/11/20 11:17 MB [id number]) Current Condition History of Current Condition Onset Date Greater than 7 years ago Current Complaints Pain in left groin that throbs History of Current Condition Pt reports 7-8/10 left hip pain in anterior and posterior areas. 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 She is now able to use a pole for people to sign their credit card receipts after buying tickets. Pt has a history of left hip pain. She had PT and was told to turn her feet, which has helped the pain. She has to walk far to the bathroom and tends to hurry her pace which seems to decrease the pain. Shortened steps help her symptoms. Sitting, driving and taking large steps increase the front of the left hip pain . Pt sleeps on her right side with pillow between her legs. This helps the deep throbbing pain inside the hip. She is taking Meloxicam in the mornings and aspirin at night before bed. She is able to sleep 8 hours at night. The left hip is stiff in the morning. She can hardly walk at first and it is better after she moves around. Pt was riding as a passenger in the car yesterday and it got so bad that she had to lie in the back. She denies injury. 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 She had a lot of physical jobs. Pt is undergoing left THR . Pt lives with . Pt is going to [facility] to get a rolling walker. She has a high toilet with counter that she can use easily at home. She will look into getting a tub bench or shower chair. She lives in a split level house. She has 8 steps and no railing to enter the home. Prior Treatments and Tests PT for left hip pain 7 years ago Treatment Goals Patient/Caregiver Goals To prepare for surgery. PT-OP-C Subjective Start: 02/11/20 07:31 Freq: Status: Active Protocol: Document 04/21/20 10:34 HH (Rec: 04/21/20 11:19 HH [id number]) OP-PT Subjective Patient Comments Patient Comments im doing good. I worked 3 days in a row last week. 8 hours each shift but the long standing part kind of bothers me. I was able to recover during the weekend. Patient Reported Progress Improving Patient Questionnaires Lower Extremity Functional Scale LEFS Score 39 LEFS Impairment 40 to 59% Impaired (Score 32- 47) PT-OP-D Balance Start: 02/11/20 07:31 Freq: Status: Active Protocol: Document 02/11/20 10:35 MB (Rec: 02/11/20 15:35 MB [id number]) Tinetti Balance Assessment Scoring and Interpretation Tinetti Impairment Rating from Composite 1 to <20% Impaired (Score 23- Score 27) PT-OP-G Mobility & Gait Start: 02/11/20 07:31 Freq: Status: Active Protocol: Document 02/11/20 10:35 MB (Rec: 02/11/20 14:14 MB [id number]) OP Mobility Evaluation Bed Mobility Rolling Pt can perform bed mobility I, ed to use right foot to hook around left ankle to get leg in and OOB Supine to and from Sit Similar training for use of right foot Transfers Sit to Stand Cues to push up from the mat, to reach back for it and to unweight left foot for sit to stand transfers OP Gait Assessment Gait Gait Assistance Required: Independent Distance (Feet) 75 Assistive Devices Assistive Device None,Front Wheeled Walker Orthotic/Prosthetic Devices or Brace: No Gait Deviations General Gait Pattern Within Normal Limits Comments Gait Comments Pt can gait train I pre-op and ed pt in used of rolling walker for 50'2 with both step -to gait with left foot first and step-through gait. Ed to back up with right foot first with walker to decrease left ER and extension with stepping Stair Climbing Evaluation Evaluation Level of Assist On Stairs Independent Devices Stair Climbing Assistive Devices Left Railing Comments Stair Climbing Comments Stair training with rolling walker to prepare for surgery: Pt backwards, PT supporting walker in the front. Ascend first with right foot, then left foot and then the walker and reverse to descend. Ed pt how to perform with left rail ascend with step-to gait as well. PT-OP-K Range of Motion Start: 02/11/20 07:31 Freq: Status: Active Protocol: Document 03/03/20 11:21 (Rec: 03/03/20 12:10 [id number]) Hip Goniometric Range of Motion Hip Right Active Hip ROM WFL Yes Testing Position Supine Flexion w/Knee Flexed 115 Abduction 23 Left Passive Hip ROM WFL No Testing Position Supine Flexion w/Knee Flexed 95 Extension 0 Abduction 5 Comments pain with extension and abduction PT-OP-M Strength Start: 02/11/20 07:31 Freq: Status: Active Protocol: Document 03/03/20 11:21 (Rec: 03/03/20 12:10 [id number]) Hip Strength Hip Manual Muscle Testing Left Flexion (L2) 3- Fair- Abduction 3+ Fair+ Adduction 4- Good- Comments unable to test extension d/t hip precautions Right Flexion (L2) 5 Normal Extension (S1) 5 Normal Abduction 5 Normal Adduction 5 Normal Knee Strength Knee Manual Muscle Testing Left Flexion (S2) 3+ Fair+ Extension (L3) 4- Good- Right Flexion (S2) 5 Normal Extension (L3) 5 Normal PT-OP-Q Treatments Start: 02/11/20 07:31 Freq: Status: Active Protocol: Document 04/21/20 10:34 (Rec: 04/21/20 11:19 [id number]) Cardio Equipment Bicycle (Upright) Duration (Minutes) 8 Resistance 5 Therapeutic Exercises Standing Exercises cone taps Standing Exercise Name 12, 2, 3, 5 o'clock Side bilateral Equipment Used 4 cones Reps/Minutes x3 each LE Comments cued upright posture, no hip ext, improved SLS balance SLS Side bilateral Equipment Used 30 sec Reps/Minutes x3 B Comments cued upright posture, glut facil to allow COG over MACK foot triangle to inc step up Standing Exercise Name 1UE support for LLE Side bilateral Equipment Used 6 inch step Comments hip hinge glut facilitation and opp toe touch floor Manual Therapy Treatment Soft Tissue Mobilization scar mob Body Location L anterior hip Mobilization Type Cross-Friction,Myofascial Release,Rolling Intensity/Depth Moderate Body Position Supine Comments improved tightness and discomfort. (later tighter than R) PT-OP-T Assessment and Plan Start: 02/11/20 07:31 Freq: Status: Active Protocol: Document 04/21/20 10:34 (Rec: 04/21/20 11:19 [id number]) Physical Therapy Assessment Goals climb stair Impairment with 1 UE noted for step over pattern Tool Repairer Goal (LTG) pt will be able to climb stairs with step over pattern without UE support consistently LTG Duration 8 weeks 4 Short Term Goal (STG) 03/03 pt is compliant to HEP who does ROM ex 5-6 times a day and amb every hour. Tool Repairer Goal (LTG) 04/14 goal pt is indepednent with HEP now Pt will perform progressive HEP with I including flexibility, strengthening, balance and gait to increase overall I by 04/14/2020. LTG Duration Met 3 Short Term Goal (STG) 03/03 STS in 30 sec = 6 times with hands pushed , walker in front. Tool Repairer Goal (LTG) Pt will perform at least 12 reps sit to stand without UE support in 30 sec to improve functional strength by 2020. LTG Duration 8 weeks 2 Short Term Goal (STG) 03/03 = did not assess 04/21/20= 1150 ft without AD Senior Living Goal (LTG) Pt will gait train at least 1500 feet in 6 minutes with no AD to improve community ambulation by 05/15/20 LTG Duration 8 weeks 1 Short Term Goal (STG) 03/03 LEFS = 5 post surgically. 04/14 = assess on 04/21/20= 39/80 Senior Living Goal (LTG) Pt will present with LEF score reflecting no more than 20% impairment to improve overall functional strength by 2020. 03/27/20 - LTG Duration 8 weeks Assessment Summary Assessment Pt cont to progress with strength, balance and endurance. LEFS= 39/80 6MWT = 1150ft w/o AD pt does get painful after prolonged standing from work. Physical Therapy Plan Frequency and Duration Frequency of Treatment 1x/Week Duration of Treatment 8 weeks Plan of Care Start Date 04/14/20 Plan of Care End Date 06/13/20 Next Visit Focus/Plan Next Note Type Treatment Note Next Visit Plan continue scar mobility, HEP last tx and gait next tx. step up 6 stair climbing SLS stability and balance
--- NOTE | 2020-04-28 11:57 | PT.OTN ---
Current Diagnoses Unilateral primary osteoarthritis, left hip (04/28/20) Physical Therapy Treatment Note PT-OP-A Visit Information Start: 02/11/20 07:31 Freq: Status: Active Protocol: Document 04/28/20 11:13 HH (Rec: 04/28/20 11:56 HH [id number]) Out-Patient Physical Therapy Visit Information Visit Information Visit Type Treatment Note Visit Start Time 11:16 Visit Stop Time 12:00 Total Visit Minutes 44 Visit Number 14 Number of WINE AND SPIRITS CLERK Visits 0 PT-OP-B Current Condition Start: 02/11/20 07:31 Freq: Status: Active Protocol: Document 02/11/20 10:35 MB (Rec: 02/11/20 11:17 MB [id number]) Current Condition History of Current Condition Onset Date Greater than 7 years ago Current Complaints Pain in left groin that throbs History of Current Condition Pt reports 7-8/10 left hip pain in anterior and posterior areas. 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 She is now able to use a pole for people to sign their credit card receipts after buying tickets. Pt has a history of left hip pain. She had PT and was told to turn her feet, which has helped the pain. She has to walk far to the bathroom and tends to hurry her pace which seems to decrease the pain. Shortened steps help her symptoms. Sitting, driving and taking large steps increase the front of the left hip pain . Pt sleeps on her right side with pillow between her legs. This helps the deep throbbing pain inside the hip. She is taking Meloxicam in the mornings and aspirin at night before bed. She is able to sleep 8 hours at night. The left hip is stiff in the morning. She can hardly walk at first and it is better after she moves around. Pt was riding as a passenger in the car yesterday and it got so bad that she had to lie in the back. She denies injury. 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 She had a lot of physical jobs. Pt is undergoing left THR . Pt lives with . Pt is going to [facility] to get a rolling walker. She has a high toilet with counter that she can use easily at home. She will look into getting a tub bench or shower chair. She lives in a split level house. She has 8 steps and no railing to enter the home. Prior Treatments and Tests PT for left hip pain 7 years ago Treatment Goals Patient/Caregiver Goals To prepare for surgery. PT-OP-C Subjective Start: 02/11/20 07:31 Freq: Status: Active Protocol: Document 04/28/20 11:13 HH (Rec: 04/28/20 11:56 HH [id number]) OP-PT Subjective Patient Comments Patient Comments for some reason, my R knee has been hurting a little bit but i dont know why. I worked 40 hours last week and my L hip hurt a little bit yesterday but im recovered. Patient Reported Progress Improving PT-OP-D Balance Start: 02/11/20 07:31 Freq: Status: Active Protocol: Document 02/11/20 10:35 MB (Rec: 02/11/20 15:35 MB [id number]) Tinetti Balance Assessment Scoring and Interpretation Tinetti Impairment Rating from Composite 1 to <20% Impaired (Score 23- Score 27) PT-OP-G Mobility & Gait Start: 02/11/20 07:31 Freq: Status: Active Protocol: Document 02/11/20 10:35 MB (Rec: 02/11/20 14:14 MB [id number]) OP Mobility Evaluation Bed Mobility Rolling Pt can perform bed mobility I, ed to use right foot to hook around left ankle to get leg in and OOB Supine to and from Sit Similar training for use of right foot Transfers Sit to Stand Cues to push up from the mat, to reach back for it and to unweight left foot for sit to stand transfers OP Gait Assessment Gait Gait Assistance Required: Independent Distance (Feet) 75 Assistive Devices Assistive Device None,Front Wheeled Walker Orthotic/Prosthetic Devices or Brace: No Gait Deviations General Gait Pattern Within Normal Limits Comments Gait Comments Pt can gait train I pre-op and ed pt in used of rolling walker for 50'2 with both step -to gait with left foot first and step-through gait. Ed to back up with right foot first with walker to decrease left ER and extension with stepping Stair Climbing Evaluation Evaluation Level of Assist On Stairs Independent Devices Stair Climbing Assistive Devices Left Railing Comments Stair Climbing Comments Stair training with rolling walker to prepare for surgery: Pt backwards, PT supporting walker in the front. Ascend first with right foot, then left foot and then the walker and reverse to descend. Ed pt how to perform with left rail ascend with step-to gait as well. PT-OP-K Range of Motion Start: 02/11/20 07:31 Freq: Status: Active Protocol: Document 03/03/20 11:21 (Rec: 03/03/20 12:10 [id number]) Hip Goniometric Range of Motion Hip Right Active Hip ROM WFL Yes Testing Position Supine Flexion w/Knee Flexed 115 Abduction 23 Left Passive Hip ROM WFL No Testing Position Supine Flexion w/Knee Flexed 95 Extension 0 Abduction 5 Comments pain with extension and abduction PT-OP-M Strength Start: 02/11/20 07:31 Freq: Status: Active Protocol: Document 03/03/20 11:21 (Rec: 03/03/20 12:10 [id number]) Hip Strength Hip Manual Muscle Testing Left Flexion (L2) 3- Fair- Abduction 3+ Fair+ Adduction 4- Good- Comments unable to test extension d/t hip precautions Right Flexion (L2) 5 Normal Extension (S1) 5 Normal Abduction 5 Normal Adduction 5 Normal Knee Strength Knee Manual Muscle Testing Left Flexion (S2) 3+ Fair+ Extension (L3) 4- Good- Right Flexion (S2) 5 Normal Extension (L3) 5 Normal PT-OP-Q Treatments Start: 02/11/20 07:31 Freq: Status: Active Protocol: Document 04/28/20 11:13 (Rec: 04/28/20 11:56 [id number]) Cardio Equipment Bicycle (Upright) Duration (Minutes) 8 Resistance 5 Gym Equipment Shuttle Recovery Unilateral Squats Resistance #50 Shuttle Recovery Platform Stable Reps/Time 12 x3 Therapeutic Exercises Standing Exercises uneven surface Equipment Used blue foam Reps/Minutes 10sec x 5 each cone taps Standing Exercise Name 12, 2, 3, 5 o'clock Side bilateral Equipment Used 4 cones Reps/Minutes x3 each LE Comments cued upright posture, no hip ext, improved SLS balance SLS Side bilateral Equipment Used 30 sec Reps/Minutes x3 B Comments cued upright posture, glut facil to allow COG over MACK foot triangle to inc step up Standing Exercise Name 1UE support for LLE Side bilateral Equipment Used 6 inch step Comments hip hinge glut facilitation and opp toe touch floor standing hip abd Side bilateral Reps/Minutes 8 x2 Comments cues on slow eccentric control Manual Therapy Treatment Soft Tissue Mobilization scar mob Body Location L anterior hip Mobilization Type Cross-Friction,Myofascial Release,Rolling Intensity/Depth Moderate Body Position Supine Comments improved tightness and discomfort. (later tighter than R) PT-OP-T Assessment and Plan Start: 02/11/20 07:31 Freq: Status: Active Protocol: Document 04/28/20 11:13 HH (Rec: 04/28/20 11:56 [id number]) Physical Therapy Assessment Goals climb stair Impairment with 1 UE noted for step over pattern Alf Goal (LTG) pt will be able to climb stairs with step over pattern without UE support consistently LTG Duration 8 weeks 4 Short Term Goal (STG) 03/03 pt is compliant to HEP who does ROM ex 5-6 times a day and amb every hour. Alf Goal (LTG) 04/14 goal pt is indepednent with HEP now Pt will perform progressive HEP with I including flexibility, strengthening, balance and gait to increase overall I by 04/14/2020. LTG Duration Met 3 Short Term Goal (STG) 03/03 STS in 30 sec = 6 times with hands pushed , walker in front. Dowel Machine Operator Goal (LTG) Pt will perform at least 12 reps sit to stand without UE support in 30 sec to improve functional strength by 2020. LTG Duration 8 weeks 2 Short Term Goal (STG) 03/03 = did not assess 04/21/20= 1150 ft without AD Dowel Machine Operator Goal (LTG) Pt will gait train at least 1500 feet in 6 minutes with no AD to improve community ambulation by 05/15/20 LTG Duration 8 weeks 1 Short Term Goal (STG) 03/03 LEFS = 5 post surgically. 04/14 = assess on 04/21/20= 39/80 Dowel Machine Operator Goal (LTG) Pt will present with LEF score reflecting no more than 20% impairment to improve overall functional strength by 2020. 03/27/20 - LTG Duration 8 weeks Assessment Summary Assessment pt returned to her full 5 day work schedule with some discomfort only but able to recover during the weekend. Her SL balance is symmetricla to R but step up is slightly weaker than R. Pt might be able to DC from next vist d/t her good progress Physical Therapy Plan Frequency and Duration Frequency of Treatment 1x/Week Duration of Treatment 8 weeks Plan of Care Start Date 04/14/20 Plan of Care End Date 06/13/20 Next Visit Focus/Plan Next Note Type Treatment Note Next Visit Plan continue scar mobility, HEP last tx and gait next tx. step up 6 stair climbing SLS stability and balance
--- NOTE | 2020-05-05 11:58 | PT.OPDS ---
Current Diagnoses Unilateral primary osteoarthritis, left hip (05/05/20) Visit Care Team Role Provider Type JEFFERY Cole Primary Care Provider Advanced Custom Stock Maker Specialty: Medical Address: [address] [place] [address], [id number] Email: [email or web address] Javier Nielsen MD Attending Provider Physician Referring Provider Specialty: Orthopedic Surgery Address: [address] [place] [address], [place], [address] Email: [email or web address] Visit Number Visit Number 15 Discharge Summary PT-OP-B Current Condition Start: 02/11/20 07:31 Freq: Status: Active Protocol: Document 02/11/20 10:35 MB (Rec: 02/11/20 11:17 MB [id number]) Current Condition History of Current Condition Onset Date Greater than 7 years ago Current Complaints Pain in left groin that throbs History of Current Condition Pt reports 7-8/10 left hip pain in anterior and posterior areas. 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 She is now able to use a pole for people to sign their credit card receipts after buying tickets. Pt has a history of left hip pain. She had PT and was told to turn her feet, which has helped the pain. She has to walk far to the bathroom and tends to hurry her pace which seems to decrease the pain. Shortened steps help her symptoms. Sitting, driving and taking large steps increase the front of the left hip pain . Pt sleeps on her right side with pillow between her legs. This helps the deep throbbing pain inside the hip. She is taking Meloxicam in the mornings and aspirin at night before bed. She is able to sleep 8 hours at night. The left hip is stiff in the morning. She can hardly walk at first and it is better after she moves around. Pt was riding as a passenger in the car yesterday and it got so bad that she had to lie in the back. She denies injury. 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 She had a lot of physical jobs. Pt is undergoing left THR . Pt lives with . Pt is going to [employer] to get a rolling walker. She has a high toilet with counter that she can use easily at home. She will look into getting a tub bench or shower chair. She lives in a split level house. She has 8 steps and no railing to enter the home. Prior Treatments and Tests PT for left hip pain 7 years ago Treatment Goals Patient/Caregiver Goals To prepare for surgery. PT-OP-C Subjective Start: 02/11/20 07:31 Freq: Status: Active Protocol: Document 05/05/20 11:17 HH (Rec: 05/05/20 11:58 HH [id number]) OP-PT Subjective Patient Comments Patient Comments I worked the full week again. And i did get sore yesterday but im recovered now. Patient Reported Progress Improving PT-OP-D Balance Start: 02/11/20 07:31 Freq: Status: Active Protocol: Document 02/11/20 10:35 MB (Rec: 02/11/20 15:35 MB [id number]) Tinetti Balance Assessment Scoring and Interpretation Tinetti Impairment Rating from Composite 1 to <20% Impaired (Score 23- Score 27) PT-OP-G Mobility & Gait Start: 02/11/20 07:31 Freq: Status: Active Protocol: Document 02/11/20 10:35 MB (Rec: 02/11/20 14:14 MB [id number]) OP Mobility Evaluation Bed Mobility Rolling Pt can perform bed mobility I, ed to use right foot to hook around left ankle to get leg in and OOB Supine to and from Sit Similar training for use of right foot Transfers Sit to Stand Cues to push up from the mat, to reach back for it and to unweight left foot for sit to stand transfers OP Gait Assessment Gait Gait Assistance Required: Independent Distance (Feet) 75 Assistive Devices Assistive Device None,Front Wheeled Walker Orthotic/Prosthetic Devices or Brace: No Gait Deviations General Gait Pattern Within Normal Limits Comments Gait Comments Pt can gait train I pre-op and ed pt in used of rolling walker for 50'2 with both step -to gait with left foot first and step-through gait. Ed to back up with right foot first with walker to decrease left ER and extension with stepping Stair Climbing Evaluation Evaluation Level of Assist On Stairs Independent Devices Stair Climbing Assistive Devices Left Railing Comments Stair Climbing Comments Stair training with rolling walker to prepare for surgery: Pt backwards, PT supporting walker in the front. Ascend first with right foot, then left foot and then the walker and reverse to descend. Ed pt how to perform with left rail ascend with step-to gait as well. PT-OP-K Range of Motion Start: 02/11/20 07:31 Freq: Status: Active Protocol: Document 03/03/20 11:21 (Rec: 03/03/20 12:10 [id number]) Hip Goniometric Range of Motion Hip Right Active Hip ROM WFL Yes Testing Position Supine Flexion w/Knee Flexed 115 Abduction 23 Left Passive Hip ROM WFL No Testing Position Supine Flexion w/Knee Flexed 95 Extension 0 Abduction 5 Comments pain with extension and abduction PT-OP-M Strength Start: 02/11/20 07:31 Freq: Status: Active Protocol: Document 03/03/20 11:21 (Rec: 03/03/20 12:10 [id number]) Hip Strength Hip Manual Muscle Testing Left Flexion (L2) 3- Fair- Abduction 3+ Fair+ Adduction 4- Good- Comments unable to test extension d/t hip precautions Right Flexion (L2) 5 Normal Extension (S1) 5 Normal Abduction 5 Normal Adduction 5 Normal Knee Strength Knee Manual Muscle Testing Left Flexion (S2) 3+ Fair+ Extension (L3) 4- Good- Right Flexion (S2) 5 Normal Extension (L3) 5 Normal PT-OP-T Assessment and Plan Start: 02/11/20 07:31 Freq: Status: Active Protocol: Document 05/05/20 11:17 (Rec: 05/05/20 11:58 [id number]) Physical Therapy Assessment Goals climb stair Impairment with 1 UE noted for step over pattern Emergency Planning And Response Manager Goal (LTG) 2/4 goal met pt isable to climb stairs with step over pattern without UE support consistently LTG Duration 8 weeks 4 Short Term Goal (STG) 12/ pt is compliant to HEP who does ROM ex 5-6 times a day and amb every hour. Emergency Planning And Response Manager Goal (LTG) 04/14 goal pt is indepednent with HEP now Pt will perform progressive HEP with I including flexibility, strengthening, balance and gait to increase overall I by 04/14/2020. LTG Duration Met 3 Short Term Goal (STG) 03/03 STS in 30 sec = 6 times with hands pushed , walker in front. Long-Term Goal (LTG) 05/05= 10 times Pt will perform at least 12 reps sit to stand without UE support in 30 sec to improve functional strength by 2020. LTG Duration 8 weeks 2 Short Term Goal (STG) 03/03 = did not assess 04/21/20= 1150 ft without AD Long-Term Goal (LTG) Pt will gait train at least 1500 feet in 6 minutes with no AD to improve community ambulation by 05/15/20 LTG Duration 8 weeks 1 Short Term Goal (STG) 03/03 LEFS = 5 post surgically. 04/14 = assess on 04/21/20= 39/80 05/05= 64/80 Long-Term Goal (LTG) Pt will present with LEF score reflecting no more than 20% impairment to improve overall functional strength by 2020. 03/27/20 - LTG Duration 8 weeks Progress Towards Goals Progress Towards Goals Progressing Toward Goals,Goals Met Assessment Summary Assessment Pt has been progressing wel since evaluation. She is able to fully return to her full work schedule now. Although pt tends to have soreness after her last day of work but she is able to recovers within a day. Pt requested to be DC from therapy d/t good progress . Physical Therapy Plan Frequency and Duration Frequency of Treatment 1x/Week Duration of Treatment 8 weeks Plan of Care Start Date 04/14/20 Plan of Care End Date 06/13/20 Discharge Physical Therapy Discharge Reasons Patient Request Next Visit Focus/Plan Next Note Type Treatment Note
== END 2020-05-05 12:50 ==
LOC: PHYS 11:15
PROVIDERS: PCP Registered Nurse; Referring Provider Orthopaedic Surgery Adult Reconstructive Orthopaedic Surgery; Visit Provider Orthopaedic Surgery Adult Reconstructive Orthopaedic Surgery
DX: M16.12 Unilateral primary osteoarthritis, left hip (principal)
CPT/HCPCS: 97110; 97112; 97116; 97140; 97161; 97164; 97530; 97535

== ENCOUNTER → 2020-05-19 08:30 | Outpatient (CLI) | payer OTHER, SELFPAY ==
[2020-02-25 14:10] VITALS: BMI 28.8
[2020-05-19 10:00] LABS: Add Manual Diff / Slide Review NO; Basophils Absolute Auto 0 /uL (0-100); Basophils Percent Auto 0.5 % (0-2); Eosinophils Absolute Auto 200 /uL (0-450); Eosinophils Percent Auto 3.7 % (2-4); Hematocrit 38.7 % (36-46); Hemoglobin 12.8 g/dL (12.0-16.0); Lymphocytes Absolute Auto 1600 /uL (1100-4500); Lymphocytes Percent Auto 25.1 % (25-40); Mean Corpuscular HGB Conc 33.1 % (30-36); Mean Corpuscular Hemoglobin 30.7 PG (26-34); Mean Corpuscular Volume 92.8 fL (80-100); Monocytes Absolute Auto 400 /uL (0-900); Monocytes Percent Auto 6.7 % (3-14); Neutrophils Absolute Auto 4100 /uL (1500-7000); Platelet Count 279 X10^3/uL (150-400); Red Blood Cell Count 4.17 X10^6/uL (4.0-5.2); Red Cell Distribution Width 12.9 % (11.6-14.8); White Blood Cell Count 6.3 X10^3/uL (4.5-11.0)
[2020-05-19 10:09] LABS: Alanine Aminotransferase 17 IU/L (<35); Albumin 3.9 g/dL (3.5-5.0); Albumin Globulin Ratio 1.4 (1.0-2.8); Alkaline Phosphatase 58 U/L (38-126); Aspartate Aminotransferase 28 IU/L (14-36); BUN Creatinine Ratio 18.3 (6-22); Bilirubin Total 0.2 mg/dL (0.2-1.3); Blood Urea Nitrogen 17 mg/dL (7-17); Carbon Dioxide 33 mmol/L (22-32); Chloride 105 mmol/L (98-107); Cholesterol 205 mg/dL (140-199); Estimated Glomerular Filt Rate > 60.0 mL/min (>60); Globulin 2.7 g/dL (1.7-4.1); Glucose 88 mg/dL (80-110); HDL Cholesterol 64 mg/dL (40-60); HEMOLYSIS < 15 (0-50); LDL Cholesterol Calculated 124 mg/dL (<100); Potassium 4.3 mmol/L (3.4-5.1); Sodium 139 mmol/L (137-145); Total Protein 6.6 g/dL (6.3-8.2); Triglycerides 86 mg/dL (35-150)
[2020-05-19 11:08] LABS: Free T4, Direct Thyroxine 0.84 ng/dL (0.78-2.19)
[2020-05-19 11:22] LABS: Thyroid Stimulating Hormone 6.12 uIU/mL (0.47-4.68)
[2020-05-20 05:41] LABS: Triiodothyronine T3 Total 63 ng/dL (71-180)
== END ==
PROVIDERS: PCP Registered Nurse; Referring Provider Physician Assistant; Visit Provider Physician Assistant
DX: R53.83 Other fatigue (principal); E03.9 Hypothyroidism, unspecified; E78.00 Pure hypercholesterolemia, unspecified
CPT/HCPCS: 36415; 80053; 80061; 84439; 84443; 84480; 85025

== ENCOUNTER → 2020-07-01 11:05 | Outpatient (CLI) | payer OTHER, SELFPAY ==
[2020-02-25 14:10] VITALS: BMI 28.8
[2020-07-01 13:49] LABS: Thyroid Stimulating Hormone 2.11 uIU/mL (0.47-4.68)
== END ==
PROVIDERS: PCP Registered Nurse; Referring Provider Physician Assistant; Visit Provider Physician Assistant
DX: E03.9 Hypothyroidism, unspecified (principal)
CPT/HCPCS: 36415; 84443

== ENCOUNTER 2020-10-22 11:35 | Emergency (ER) | payer OTHER, SELFPAY ==
[2020-02-25 14:10] VITALS: BMI 28.8
[2020-10-22] VITALS (9 sets, daily range): BP systolic 102–122; BP diastolic 55–76; PULSE 53–72; RESP 13–15; TEMP 36.5; O2SAT 99–100; BMI 29.2
[2020-10-22 12:27] LABS: Add Manual Diff / Slide Review NO; Basophils Absolute Auto 0 /uL (0-100); Basophils Percent Auto 0.8 % (0-2); Eosinophils Absolute Auto 200 /uL (0-450); Eosinophils Percent Auto 3.5 % (2-4); Hematocrit 39.4 % (36-46); Hemoglobin 12.8 g/dL (12.0-16.0); Lymphocytes Absolute Auto 1600 /uL (1100-4500); Lymphocytes Percent Auto 26.7 % (25-40); Mean Corpuscular HGB Conc 32.5 % (30-36); Mean Corpuscular Hemoglobin 30.1 PG (26-34); Mean Corpuscular Volume 92.7 fL (80-100); Monocytes Absolute Auto 600 /uL (0-900); Monocytes Percent Auto 9.2 % (3-14); Neutrophils Absolute Auto 3700 /uL (1500-7000); Neutrophils Percent Auto 59.8 % (50-75); Platelet Count 264 X10^3/uL (150-400); Red Blood Cell Count 4.25 X10^6/uL (4.0-5.2); Red Cell Distribution Width 13.4 % (11.6-14.8); White Blood Cell Count 6.1 X10^3/uL (4.5-11.0)
[2020-10-22 12:45] LABS: Alanine Aminotransferase 16 IU/L (<35); Albumin 3.7 g/dL (3.5-5.0); Albumin Globulin Ratio 1.4 (1.0-2.8); Alkaline Phosphatase 53 U/L (38-126); Aspartate Aminotransferase 28 IU/L (14-36); BUN Creatinine Ratio 16.3 (6-22); Bilirubin Total 0.2 mg/dL (0.2-1.3); Blood Urea Nitrogen 13 mg/dL (7-17); Carbon Dioxide 31 mmol/L (22-32); Chloride 105 mmol/L (98-107); Estimated Glomerular Filt Rate > 60.0 mL/min (>60); Globulin 2.6 g/dL (1.7-4.1); Glucose 96 mg/dL (80-110); HEMOLYSIS < 15 (0-50); Potassium 4.3 mmol/L (3.4-5.1); Sodium 140 mmol/L (137-145); Total Protein 6.3 g/dL (6.3-8.2)
[2020-10-22 12:53] LABS: Troponin I < 0.012 ng/mL (0.01-0.034)
--- NOTE | 2020-10-22 13:25 | DI.CT.S_ITS ---
PROCEDURE: CT HEAD/BRAIN WO CON INDICATIONS: headache TECHNIQUE: Noncontrast 4.5 mm thick angled axial sections acquired from the foramen magnum to the vertex, with coronal and sagittal reformats. For radiation dose reduction, the following was used: automated exposure control, adjustment of mA and/or kV according to patient size. COMPARISON: None. FINDINGS: Image quality: Excellent. CSF spaces: Basal cisterns are patent. No extra-axial fluid collections. The ventricles are symmetric in size and shape. Brain: No intracranial bleeds or masses. There is cerebral volume loss for age, with resultant ventricular and sulcal prominence. There are periventricular and deep white matter chronic small vessel ischemic changes. There is intracranial internal carotid artery atherosclerosis. Numerous chronic bilateral basal ganglia calcifications. Skull and face: Calvarium and visualized facial bones appear intact, without suspicious lesions. Sinuses: Visualized sinuses and mastoids are clear. IMPRESSION: No acute intracranial process. Dictated by: Sanchez Olguin M.D. on 10/22/2020 at 13:48 Approved by: Sanchez Olguin M.D. on 10/22/2020 at 13:51
--- NOTE | 2020-10-22 13:35 | ED_ITS ---
HPI - Dizziness General Chief Complaint: Dizziness Stated Complaint: nausea/dizziness/unstable/hrt racing 45 min Time Seen by Provider: 10/22/20 12:38 Source: patient Mode of arrival: Ambulatory Limitations: no limitations History of Present Illness HPI Narrative: Female who presents with sudden onset of dizziness. She states she was at [employer] shopping when she felt suddenly dizzy and lightheaded. She did not pass out she had to sit down. She had no chest pain or palpitations but she was still worried about her heart. The dizziness lasts for about 15 minutes the nausea lasted a little bit longer maybe an hour. No vomiting. She has no numbness tingling or weakness. No facial drooping or difficulty speaking. He now is overall feeling a bit better in the emergency department but now is complaining of that. Related Data Home Medications Medication Instructions Recorded Confirmed acetaminophen 325 mg capsule 650 mg PO BEDTIME 02/14/20 02/14/20 meloxicam 15 mg tablet 15 mg PO DAILY 02/14/20 02/25/20 fluorometholone acetate 0.1 % eye 1 drp OPHTHALMIC (EYE) DAILY 02/25/20 02/25/20 drops,suspension Previous Rx's Medication Instructions Recorded mometasone 0.1 % topical cream 1 applictn TOPICAL BID PRN #15 gram 12/09/17 (Elocon) citalopram 40 mg tablet (Celexa) 40 mg PO QDAY 90 Days #90 tab 02/05/20 aspirin 81 mg tablet,delayed 81 mg PO BID #30 tab 02/26/20 release docusate sodium 100 mg capsule 100 mg PO BID #30 cap 02/26/20 (DOK) ondansetron 4 mg disintegrating 4 mg PO Q6H PRN #20 tab 02/26/20 tablet oxycodone 5 mg tablet 5 mg PO Q4-6H PRN #50 tab 02/26/20 levothyroxine 100 mcg tablet 100 mcg PO DAILY #90 tab 03/12/20 bupropion HCl 150 mg tablet,12 hr 300 mg PO QAM #180 ea 09/24/20 sustained-release (Wellbutrin SR) Allergies Allergy/AdvReac Type Severity Reaction Status Date / Time chlorhexidine Allergy Intermediate Rash Verified 10/22/20 11:44 [From Hibiclens] paraben Allergy Mild exzema Verified 10/22/20 11:44 Review of Systems Review of Systems Narrative: GENERAL: Denies chills, fatigue, malaise, fever, sweats, travel HEENT: Denies sinus pain, ear pain, sore throat, difficulty swallowing, neck pain RESPIRATORY: Denies dyspnea, cough, wheezing, hemoptysis, sputum. CARDIOVASCULAR: Denies chest pain, palpitations, orthopnea, edema GASTROINTESTINAL: Denies nausea, vomiting, abdominal pain, diarrhea, constipation, melena. : Denies dysuria, frequency, incontinence, hematuria, urinary retention, flank pain. MUSCULOSKELETAL: Denies weakness, joint pain, or bony pain SKIN: No rash, no erythema, no pruritus NEUROLOGIC: See HPI PSYCHIATRIC: No concerning psychosocial issues. 12 point review of systems is negative except for those stated above and HPI Patient History Medical History Concussion (2014) Easy bruisability Hypothyroidism Ocular rosacea Osteoarthritis Surgical History History of tonsillectomy [place] teeth removed Family History Mother Congestive heart failure Father Aneurysm Alcoholism Social History household members: significant other Smoking Status: Former smoker alcohol intake: former Smoking Status: Former smoker alcohol intake frequency: holidays/special occasions only Substance Use Type: marijuana Exam Initial Vital Signs Initial Vital Signs: Vital Signs Temperature 97.7 F 10/22/20 11:40 Pulse Rate 72 10/22/20 11:40 Respiratory Rate 14 10/22/20 11:40 Blood Pressure 121/59 L 10/22/20 11:40 Pulse Oximetry 100 10/22/20 11:40 GENERAL: Well-appearing, well-nourished and in no acute distress. HEENT: Head atraumatic,EOMI, pupils reactive, face symmetric, moist mucous m embranes CARDIOVASCULAR: Regular rate and rhythm without murmurs, rubs or gallops. RESPIRATORY: Breath sounds equal bilaterally, no wheezes rales or rhonchi. ABDOMEN: Soft, nontender. Normoactive bowel sounds all 4 quadrants. No guarding or rebound. EXTREMITIES: Normal range of motion, no clubbing or edema. Neurovascularly intact NEUROLOGICAL: Alert and oriented x4.Normal gait and speech. Cranial nerves II through XII grossly intact. Good asrovz-[id number], good iqzk-[id number], strength equal bilaterally, no dysarthria or aphasia, sensation in tact to soft touch bilaterally, no visual changes, no facial droop SKIN: Warm, dry, no laceration, no petechiae, no rashes or lesions. Scores NIH Stroke Scale Level of Conciousness: Alert, keenly responsive Ask month/age: Answers both questions correctly. Open/close eyes, close hand: Performs both tasks correctly Best gaze horizontal: Normal Visual evans: No visual loss Facial palsy: Normal symetrical movement Left arm drift: No drift for full 10 sec Right arm drift: No drift for full 10 sec Left leg drift: No drift for full 5 sec Right leg drift: No drift for full 5 sec Limb ataxia: Absent Sensory on face/arms/legs: Normal, no sensory loss Best language: No aphasia, normal Dysarthria: Normal Extinction or inattention: No abnormality Total NIH Stroke scale score: 0 Course Orders Ordered: ED Orders 10/22/20 11:44 EKG-12 Lead Routine 10/22/20 12:14 Complete Blood Count AUTO DIFF Stat Comprehensive Metabolic Panel Stat Troponin I Stat 10/22/20 13:25 CT head/brain wo con Stat Vital Signs Vital signs: Vital Signs - 8 hr 10/22/20 13:00 10/22/20 13:30 10/22/20 14:00 Pulse Rate 53 L 56 L 57 L Respiratory Rate 14 13 14 Blood Pressure 102/55 L 104/59 L 108/59 L Pulse Oximetry 100 100 100 10/22/20 14:12 Pulse Rate 57 L Respiratory Rate 14 Blood Pressure 108/59 L Pulse Oximetry 100 MDM - Dizziness Lab Data Result diagrams: 10/22/20 12:14 10/22/20 12:14 Labs: Lab Results 10/22/20 10/22/20 10/22/20 Range/Units 12:14 12:14 12:14 WBC 6.1 (4.5-11.0) X10^3/uL RBC 4.25 (4.0-5.2) X10^6/uL Hgb 12.8 (12.0-16.0) g/dL Hct 39.4 (36-46) % MCV 92.7 (80-100) fL MCH 30.1 (26-34) PG MCHC 32.5 (30-36) % RDW 13.4 (11.6-14.8) % Plt Count 264 (150-400) X10^3/uL Neut % (Auto) 59.8 (50-75) % Lymph % (Auto) 26.7 (25-40) % [place] % (Auto) 9.2 (3-14) % Eos % (Auto) 3.5 (2-4) % Baso % (Auto) 0.8 (0-2) % Neut # (Auto) 3700 (0480-8092) /uL Lymph # (Auto) 1600 (6067-4367) /uL [place] # (Auto) 600 (0-900) /uL Eos # (Auto) 200 (0-450) /uL Baso # (Auto) 0 (0-100) /uL Sodium 140 (137-145) mmol/L Potassium 4.3 (3.4-5.1) mmol/L Chloride 105 (98-107) mmol/L Carbon Dioxide 31 (22-32) mmol/L BUN 13 (7-17) mg/dL Creatinine 0.80 (0.52-1.04) mg/dL Estimated GFR > 60.0 (>60) mL/min BUN/Creatinine Ratio 16.3 (6-22) Glucose 96 (80-110) mg/dL Calcium 9.0 (8.4-10.2) mg/dL Total Bilirubin 0.2 (0.2-1.3) mg/dL AST 28 (14-36) IU/L ALT 16 (<35) IU/L Alkaline Phosphatase 53 (38-126) U/L Troponin I < 0.012 (0.01-0.034) ng/mL Total Protein 6.3 (6.3-8.2) g/dL Albumin 3.7 (3.5-5.0) g/dL Globulin 2.6 (1.7-4.1) g/dL Albumin/Globulin Ratio 1.4 (1.0-2.8) Imaging Data CT scan - head: Radiologist's Impression: PROCEDURE: CT HEAD/BRAIN WO CON INDICATIONS: headache TECHNIQUE: Noncontrast 4.5 mm thick angled axial sections acquired from the foramen magnum to the vertex, with coronal and sagittal reformats. For radiation dose reduction, the following was used: automated exposure control, adjustment of mA and/or kV according to patient size. COMPARISON: None. FINDINGS: Image quality: Excellent. CSF spaces: Basal cisterns are patent. No extra-axial fluid collections. The ventricles are symmetric in size and shape. Brain: No intracranial bleeds or masses. There is cerebral volume loss for age, with resultant ventricular and sulcal prominence. There are periventricular and deep white matter chronic small vessel ischemic changes. There is intracranial internal carotid artery atherosclerosis. Numerous chronic bilateral basal ganglia calcifications. Skull and face: Calvarium and visualized facial bones appear intact, without suspicious lesions. Sinuses: Visualized sinuses and mastoids are clear. IMPRESSION: No acute intracranial process. Dictated by: Sanchez Olguin M.D. on 10/22/2020 at 13:48 ECG Data Interpretation: Normal sinus rhythm rate 63 IA interval 170 QRS [address] changes or T-wave inversions, similar to previous EKG MDM Narrative Medical decision making narrative: The patient has no focal deficits. Now h aving headache. Head CT is negative. Soudns as though she had a brief episode of vertigo which resolved spontaneously and did not seem to last. She overall is feeling significantly better. Does not want or need anything for her headache at this time. Discharge Plan Departure Patient Disposition: Home Clinical Impression: Vertigo Instructions: DI for Vertigo Activity Restrictions/Additional Instructions: *You have been diagnosed with vertigo *What to do: At this time, blood work CT scan and EKG are overall reassuring. At this time it seems to be a small episode of vertigo *Continue to take medications as directed *Follow up with your primary care provider in 2-3 days *Return to ER if you should have increasing dizziness weakness numbness tingling lightheaded [or] any new, worsening or concerning symptoms Prescriptions: No Action mometasone [Elocon] 0.1 % cream 1 applictn Topical BID PRN (Reason: skin irritation) Qty: 15 RF: 0 citalopram [Celexa] 40 mg tablet 40 mg PO QDAY 90 Days Qty: 90 RF: 1 levothyroxine 100 mcg tablet 100 mcg PO DAILY Qty: 90 RF: 1 bupropion HCl [Wellbutrin SR] 150 mg tablet sustained-release 12 hr 300 mg PO QAM Qty: 180 RF: 1 meloxicam 15 mg Tablet 15 mg PO DAILY RF: 0 acetaminophen 325 mg Capsule 650 mg PO BEDTIME RF: 0 fluorometholone acetate 0.1 % Drops,Suspension 1 drp OPHTHALMIC (EYE) DAILY RF: 0 aspirin 81 mg Tablet,Delayed Release (Dr/Ec) 81 mg PO BID Qty: 30 RF: 0 docusate sodium [DOK] 100 mg Capsule 100 mg PO BID Qty: 30 RF: 0 ondansetron 4 mg Tablet,Disintegrating 4 mg PO Q6H PRN (Reason: Nausea) Qty: 20 RF: 0 oxycodone 5 mg tablet 5 mg PO Q4-6H PRN (Reason: pain) Qty: 50 RF: 0
== END 2020-10-22 14:14 | disposition home or self-care (01) ==
PROVIDERS: Emergency Provider Emergency Medicine
DX: R42 Dizziness and giddiness (principal); R51.9 Headache, unspecified
CPT/HCPCS: 36415; 70450; 80053; 84484; 85025; 93005; 99284

== ENCOUNTER → 2021-02-06 10:36 | Outpatient (CLI) | payer OTHER, SELFPAY ==
[2020-02-25 14:10] VITALS: BMI 28.8
[2021-02-06 12:54] LABS: Free T4, Direct Thyroxine 0.98 ng/dL (0.78-2.19)
[2021-02-07 05:22] LABS: Triiodothyronine T3 Total 67 ng/dL (71-180)
== END ==
PROVIDERS: PCP Physician Assistant; Referring Provider Physician Assistant; Visit Provider Physician Assistant
DX: E03.9 Hypothyroidism, unspecified (principal)
CPT/HCPCS: 36415; 84439; 84443; 84480

== ENCOUNTER → 2021-03-09 08:11 | Outpatient (CLI) | payer OTHER, SELFPAY ==
[2020-02-25 14:10] VITALS: BMI 28.8
--- NOTE | 2021-03-09 | DI.MG.S_ITS ---
BILATERAL DIGITAL SCREENING MAMMOGRAM 3D/2D WITH CAD: 03/09/2021 CLINICAL: Routine screening. Comparison is made to exams dated: 03/11/2017 mammogram, 08/30/2018 mammogram, and 03/27/2015 mammogram - [facility]. There are scattered fibroglandular elements in both breasts. Current study was also evaluated with a Computer Aided Detection (CAD) system. No significant masses, calcifications, or other findings are seen in either breast. There has been no significant interval change. IMPRESSION: NEGATIVE There is no mammographic evidence of malignancy. A 1 year screening mammogram is recommended. This exam was interpreted at Station ID: [id number]. NOTE: For mammograms, a report in lay terms will be sent to the patient. Approximately 15% of breast malignancies will not be visualized mammographically. In the management of a palpable breast mass, a negative mammogram must not discourage biopsy of a clinically suspicious lesion. Electronically Signed By: Higinio Barrientos acr/crow:03/09/2021 10:06:21 letter sent: Normal Exam ACR BI-RADS Category 1: Negative [id number]
== END ==
PROVIDERS: PCP Physician Assistant; Referring Provider Physician Assistant; Visit Provider Physician Assistant
DX: Z12.31 Encounter for screening mammogram for malignant neoplasm of breast (principal)
CPT/HCPCS: 77063; 77067

== ENCOUNTER → 2021-04-24 07:53 | Outpatient (CLI) | payer OTHER, SELFPAY ==
[2020-02-25 14:10] VITALS: BMI 28.8
[2021-04-24 09:12] LABS: Alanine Aminotransferase 16 IU/L (<35); Albumin 4.1 g/dL (3.5-5.0); Albumin Globulin Ratio 1.5 (1.0-2.8); Alkaline Phosphatase 48 U/L (38-126); Aspartate Aminotransferase 26 IU/L (14-36); BUN Creatinine Ratio 24.1 (6-22); Bilirubin Total 0.4 mg/dL (0.2-1.3); Blood Urea Nitrogen 20 mg/dL (7-17); Calcium 9.5 mg/dL (8.4-10.2); Carbon Dioxide 34 mmol/L (22-32); Chloride 104 mmol/L (98-107); Cholesterol 209 mg/dL (140-199); Estimated Glomerular Filt Rate > 60.0 mL/min (>60); Globulin 2.7 g/dL (1.7-4.1); Glucose 97 mg/dL (80-110); HDL Cholesterol 61 mg/dL (40-60); HEMOLYSIS < 15 (0-50); LDL Cholesterol Calculated 131 mg/dL (<100); Potassium 4.6 mmol/L (3.4-5.1); Sodium 141 mmol/L (137-145); Total Protein 6.8 g/dL (6.3-8.2); Triglycerides 86 mg/dL (35-150)
[2021-04-24 09:43] LABS: TSH w/ Reflex to FT4 1.31 uIU/mL (0.47-4.68)
[2021-04-25 06:58] LABS: Triiodothyronine T3 Total 74 ng/dL (71-180)
== END ==
PROVIDERS: PCP Physician Assistant; Referring Provider Physician Assistant; Visit Provider Physician Assistant
DX: E03.9 Hypothyroidism, unspecified (principal); E78.00 Pure hypercholesterolemia, unspecified
CPT/HCPCS: 36415; 80053; 80061; 84443; 84480

== ENCOUNTER → 2021-07-10 13:22 | Outpatient (CLI) | payer OTHER, SELFPAY ==
[2020-02-25 14:10] VITALS: BMI 28.8
[2021-07-10 14:23] LABS: Add Manual Diff / Slide Review NO; Basophils Absolute Auto 0 /uL (0-100); Basophils Percent Auto 0.6 % (0-2); Eosinophils Absolute Auto 200 /uL (0-450); Eosinophils Percent Auto 3.3 % (2-4); Hemoglobin 13.6 g/dL (12.0-16.0); Lymphocytes Absolute Auto 2200 /uL (1100-4500); Lymphocytes Percent Auto 35.3 % (25-40); Mean Corpuscular HGB Conc 33.2 % (30-36); Mean Corpuscular Hemoglobin 30.4 PG (26-34); Mean Corpuscular Volume 91.7 fL (80-100); Monocytes Absolute Auto 500 /uL (0-900); Monocytes Percent Auto 8.2 % (3-14); Neutrophils Absolute Auto 3300 /uL (1500-7000); Neutrophils Percent Auto 52.6 % (50-75); Platelet Count 311 X10^3/uL (150-400); Red Blood Cell Count 4.47 X10^6/uL (4.0-5.2); Red Cell Distribution Width 13.1 % (11.6-14.8); White Blood Cell Count 6.2 X10^3/uL (4.5-11.0)
[2021-07-10 14:50] LABS: Alanine Aminotransferase 18 IU/L (<35); Albumin 4.2 g/dL (3.5-5.0); Albumin Globulin Ratio 1.6 (1.0-2.8); Alkaline Phosphatase 54 U/L (38-126); Aspartate Aminotransferase 28 IU/L (14-36); BUN Creatinine Ratio 13.8 (6-22); Bilirubin Total 0.5 mg/dL (0.2-1.3); Blood Urea Nitrogen 13 mg/dL (7-17); Calcium 9.3 mg/dL (8.4-10.2); Carbon Dioxide 33 mmol/L (22-32); Chloride 103 mmol/L (98-107); Estimated Glomerular Filt Rate > 60 mL/min (>60); Globulin 2.6 g/dL (1.7-4.1); Glucose 86 mg/dL (80-110); HEMOLYSIS < 15 (0-50); Potassium 4.4 mmol/L (3.4-5.1); Sodium 141 mmol/L (137-145); Total Protein 6.8 g/dL (6.3-8.2)
[2021-07-10 15:19] LABS: Thyroid Stimulating Hormone 1.14 uIU/mL (0.47-4.68)
[2021-07-10 16:06] LABS: Free T4, Direct Thyroxine 1.38 ng/dL (0.78-2.19)
== END ==
PROVIDERS: PCP Physician Assistant; Referring Provider Physician Assistant; Visit Provider Physician Assistant
DX: R53.83 Other fatigue (principal); E03.9 Hypothyroidism, unspecified
CPT/HCPCS: 36415; 80053; 84439; 84443; 85025

== ENCOUNTER → 2021-08-25 10:47 | Outpatient (CLI) | payer OTHER, SELFPAY ==
[2020-02-25 14:10] VITALS: BMI 28.8
[2021-08-25 12:06] LABS: Hematocrit 38.5 % (36-46); Hemoglobin 13.1 g/dL (12.0-16.0); Mean Corpuscular Hemoglobin 30.8 PG (26-34); Mean Corpuscular Volume 90.6 fL (80-100); Platelet Count 250 X10^3/uL (150-400); Red Blood Cell Count 4.25 X10^6/uL (4.0-5.2); Red Cell Distribution Width 13.4 % (11.6-14.8); White Blood Cell Count 9.3 X10^3/uL (4.5-11.0)
[2021-08-25 12:07] LABS: Add Manual Diff / Slide Review YES
[2021-08-25 12:58] LABS: Neutrophils Absolute Manual 3162 /uL (3000-5900); RBC Morphology Normal Morphology; Total Cells Counted 100
[2021-08-25 14:01] LABS: Alanine Aminotransferase 13 IU/L (<35); Albumin 3.9 g/dL (3.5-5.0); Albumin Globulin Ratio 1.4 (1.0-2.8); Alkaline Phosphatase 69 U/L (38-126); Aspartate Aminotransferase 32 IU/L (14-36); BUN Creatinine Ratio 15.9 (6-22); Bilirubin Total 0.2 mg/dL (0.2-1.3); Blood Urea Nitrogen 13 mg/dL (7-17); Calcium 9.1 mg/dL (8.4-10.2); Carbon Dioxide 32 mmol/L (22-32); Chloride 103 mmol/L (98-107); Estimated Glomerular Filt Rate > 60 mL/min (>60); Globulin 2.7 g/dL (1.7-4.1); Glucose 93 mg/dL (80-110); HEMOLYSIS < 15 (0-50); Lipase 159 U/L (23-300); Potassium 4.4 mmol/L (3.4-5.1); Sodium 139 mmol/L (137-145); Total Protein 6.6 g/dL (6.3-8.2)
== END ==
PROVIDERS: PCP Physician Assistant; Referring Provider Physician Assistant; Visit Provider Physician Assistant
DX: R10.13 Epigastric pain (principal)
CPT/HCPCS: 36415; 80053; 83690; 85007; 85025

== ENCOUNTER → 2021-09-23 09:24 | Outpatient (CLI) | payer OTHER, SELFPAY ==
[2020-02-25 14:10] VITALS: BMI 28.8
[2021-09-23 10:31] LABS: COVID19 -Nasal RAPID Negative (Negative)
== END ==
PROVIDERS: PCP Physician Assistant; Visit Provider Surgery
DX: Z20.822 Contact with and (suspected) exposure to COVID-19 (principal); Z01.812 Encounter for preprocedural laboratory examination
CPT/HCPCS: 87635; C9803

== ENCOUNTER 2021-09-24 14:12 | Day surgery (SDC) | payer OTHER, SELFPAY ==
[2020-02-25 14:10] VITALS: BMI 28.8
--- NOTE | 2021-09-24 | PATH_ITS ---
[facility] Accession Number: [id number] . 01 Material submitted: . PART A: stomach - ANTRUM BIOPSY PART B: colon - DESCENDING COLON POLYP . 01 Clinical history: . [facility] – [place] GASTRO-ESOPHAGEAL REFLUX DISEASE WITHOUT ESOPHAGITIS EPIGASTRIC PAIN ENCOUNTER FOR SCREENING FOR MALIGNANT NEOPLASM . 01 Diagnosis: A. Antrum, Biopsy: Antral mucosa with reactive gastropathy and mild chronic inflammation. Negative for Helicobacter by immunohistochemistry. Negative for intestinal metaplasia. Negative for dysplasia and malignancy. . B. Descending Colon, Polyp, Biopsy: Tubular adenoma. MRV 09/30/2021 1329 Local . 01 Electronically signed: . Nell Pacheco MD, Pathologist NPI- [id number] . 01 Gross description: . Part A: ANTRUM BIOPSY: Received in formalin are 3 fragment(s) of roberts, soft tissue measuring 0.4 x 0.2 x 0.1 cm to 0.4 x 0.1 x 0.1 cm submitted entirely in 1 cassette(s) Part B: DESCENDING COLON POLYP: Received in formalin is 1 fragment(s) of roberts, soft tissue measuring 1.3 x 0.3 x 0.3 cm submitted entirely in 1 cassette(s) /CPE 09/25/2021 0627 Local . 01 Pathologist provided ICD-10: D12.4, R10.13 . 01 CPT . 726680, 639543 Specimen Comment: A courtesy copy of this report has been sent to [phone] Performed at: 01 [facility] [address] [place] [address] [facility], [place], [place] [id number] MD Eulogio Chaidez MD Phone: [phone]
[2021-09-24 14:33] VITALS: BP 108/68; PULSE 67; RESP 16; TEMP 36; O2SAT 99
[2021-09-24 14:34] VITALS: BMI 28.3
[2021-09-24] MEDS: LACTATED RINGERS 1,000 ML 42 ML IV (14:50)
--- NOTE | 2021-09-24 16:03 | PM.PREOP ---
Pre-operative Note COVID-19 COVID-19 status: Negative Result date/Date tested (Pos, Neg/Pending): 09/23/21 Interval Note History & Physical reviewed/Exam performed by Physician: Yes Changes to H&P: No ASA Class (for procedural sedation): II
[2021-09-24] MEDS: LIDOCAINE 4% SOLN 50 ML 20 ML TOP (16:08)
[2021-09-24] MEDS: MIDAZOLAM 5 MG/5 ML VIAL 10 MG IV (16:43)
[2021-09-24] MEDS: fentaNYL 250 MCG/5 ML INJ 150 MCG IV (16:43)
--- NOTE | 2021-09-24 16:58 | PM.OP.EC ---
Operative Date/Time/Diagnoses Date of procedure: 09/24/21 Time of procedure: 16:58 Pre-op diagnosis: Dyspepsia and colon cancer screening Post-op diagnosis: same Procedure & Clinicians Study performed: EGD and colonoscopy Same procedure as scheduled: Yes Surgeon: Ayad Paula Procedure Notes Procedure in detail: Surgeon: Ayad Paula MD Procedure in detail: A timeout was performed. A bite blocked was placed and monitors were attached to the patient. The patient was positioned in a left lateral decubitus position. Sedation was administered with Versed and fentanyl. Once the patient was sedated the endoscope was inserted through the bite block and passed through the esophagus and stomach and into the duodenum. There were no abnormalities in the duodenum or duodenal bulb. The scope was withdrawn into the stomach and there was mild antritis. Random biopsies were taken from the gastric antrum. The rest of the stomach was normal. The endoscope was retroflexed and a very small hiatal hernia was noted.. The endoscope was straightned and withdrawn into the esophagus. No abnormalities were noted. Findings: Mild antritis and very small hiatal hernia Next we repositioned the patient for a colonoscopy. A digital rectal exam was performed and was normal. The colonoscope was inserted and advanced to the cecum. The appendiceal orifice was identified and photographed. The scope was slowly withdrawn over greater than 6 minutes. There was a 5 mm polyp in the descending colon removed with a cold snare. There was extensive diverticulosis greatest in the sigmoid colon. The scope was retroflexed in the rectum no abnormalities were noted other than some mild internal hemorrhoids. Findings: Extensive diverticulosis greatest in the sigmoid colon and 5 mm polyp in the descending colon EBL: 5 mL Scope withdrawal time: 8 Sedation minutes: 46 Post-procedure Recommendations: Will call with biopsy results Disposition: PACU
[2021-09-24 17:01] VITALS: BP 106/73; PULSE 70; RESP 17; TEMP 36.7; O2SAT 100
[2021-09-24 17:06] VITALS: BP 114/63; PULSE 68; RESP 18; O2SAT 100
[2021-09-24 17:11] VITALS: BP 103/63; PULSE 64; RESP 16; O2SAT 100
[2021-09-24 17:26] VITALS: BP 108/67; PULSE 63; RESP 14; O2SAT 100
--- NOTE | 2021-09-24 17:32 | SUR.PHASEII ---
Discharge instructions reviewed with patient and time allowed for questions, paper copy given. Pt denies any distress, abdomen soft. Dressed independently. IV DC'd intact, dressing applied. Pt left unit A&Ox4, with all personal belongings, to ER exit to meet spouse who will transport pt home.
== END 2021-09-24 17:32 | disposition home or self-care (01) ==
PROVIDERS: PCP Physician Assistant; Referring Provider Surgery; Visit Provider Surgery
PROC: 0DJ08ZZ Inspection of Upper Intestinal Tract, Via Natural or Artificial Opening Endoscopic (ICD-10-PCS; CPT 43235; principal; 2021-09-24 15:15)
PROC: 0DJD8ZZ Inspection of Lower Intestinal Tract, Via Natural or Artificial Opening Endoscopic (ICD-10-PCS; CPT 45378; 2021-09-24 15:15)
DX: Z12.11 Encounter for screening for malignant neoplasm of colon (principal); R10.13 Epigastric pain; K44.9 Diaphragmatic hernia without obstruction or gangrene; K57.30 Diverticulosis of large intestine without perforation or abscess without bleeding; K64.8 Other hemorrhoids; K29.50 Unspecified chronic gastritis without bleeding; D12.4 Benign neoplasm of descending colon; K31.9 Disease of stomach and duodenum, unspecified
CPT/HCPCS: 45380; 43239; 99152; 99153; J2250; J3010

== ENCOUNTER → 2022-02-05 10:39 | Outpatient (CLI) | payer OTHER, SELFPAY ==
[2020-02-25 14:10] VITALS: BMI 28.8
[2022-02-05 12:01] LABS: Add Manual Diff / Slide Review NO; Basophils Absolute Auto 0 /uL (0-100); Basophils Percent Auto 0.6 % (0-2); Eosinophils Absolute Auto 300 /uL (0-450); Eosinophils Percent Auto 4.5 % (2-4); Hematocrit 39.2 % (36-46); Hemoglobin 13.3 g/dL (12.0-16.0); Lymphocytes Absolute Auto 1900 /uL (1100-4500); Lymphocytes Percent Auto 30.2 % (25-40); Mean Corpuscular HGB Conc 33.9 % (30-36); Mean Corpuscular Hemoglobin 30.7 PG (26-34); Mean Corpuscular Volume 90.7 fL (80-100); Monocytes Absolute Auto 500 /uL (0-900); Monocytes Percent Auto 7.3 % (3-14); Neutrophils Absolute Auto 3600 /uL (1500-7000); Neutrophils Percent Auto 57.4 % (50-75); Platelet Count 261 X10^3/uL (150-400); Red Blood Cell Count 4.32 X10^6/uL (4.0-5.2); Red Cell Distribution Width 13.2 % (11.6-14.8); White Blood Cell Count 6.3 X10^3/uL (4.5-11.0)
[2022-02-05 13:37] LABS: Alanine Aminotransferase 19 IU/L (<35); Albumin 3.9 g/dL (3.5-5.0); Albumin Globulin Ratio 1.4 (1.0-2.8); Alkaline Phosphatase 59 U/L (38-126); Aspartate Aminotransferase 26 IU/L (14-36); BUN Creatinine Ratio 12.6 (6-22); Bilirubin Total 0.4 mg/dL (0.2-1.3); Blood Urea Nitrogen 11 mg/dL (7-17); Carbon Dioxide 31 mmol/L (22-32); Chloride 104 mmol/L (98-107); Cholesterol 200 mg/dL (140-199); Estimated Glomerular Filt Rate > 60 mL/min (>60); Globulin 2.8 g/dL (1.7-4.1); Glucose 84 mg/dL (80-110); HDL Cholesterol 50 mg/dL (40-60); HEMOLYSIS < 15 (0-50); LDL Cholesterol Calculated 135 mg/dL (<100); Potassium 4.2 mmol/L (3.4-5.1); Sodium 140 mmol/L (137-145); Total Protein 6.7 g/dL (6.3-8.2); Triglycerides 74 mg/dL (35-150)
[2022-02-05 14:38] LABS: Folate 10.9 ng/mL (2.76-20.0); Vitamin B12 250 pg/mL (239-931)
[2022-02-05 15:49] LABS: Vitamin D 25 Hydroxy (D3) 26.6 ng/mL (30.0-100.0)
[2022-02-05 16:03] LABS: TSH w/ Reflex to FT4 0.95 uIU/mL (0.47-4.68)
== END ==
PROVIDERS: PCP Family Medicine; Referring Provider Family Medicine; Visit Provider Family Medicine
DX: E03.9 Hypothyroidism, unspecified (principal); E78.00 Pure hypercholesterolemia, unspecified; K57.90 Diverticulosis of intestine, part unspecified, without perforation or abscess without bleeding; E55.9 Vitamin D deficiency, unspecified
CPT/HCPCS: 36415; 80053; 80061; 82306; 82607; 82746; 84443; 85025

== ENCOUNTER → 2022-02-24 10:12 | Outpatient (CLI) | payer OTHER, SELFPAY ==
[2020-02-25 14:10] VITALS: BMI 28.8
== END ==
PROVIDERS: PCP Family Medicine; Referring Provider Otolaryngology; Visit Provider Otolaryngology
DX: Z01.810 Encounter for preprocedural cardiovascular examination (principal)
CPT/HCPCS: 93005

== ENCOUNTER 2022-06-22 18:27 | Emergency (ER) | payer OTHER, SELFPAY ==
[2020-02-25 14:10] VITALS: BMI 28.8
[2022-06-22 18:34] VITALS: BP 169/81; PULSE 95; RESP 16; TEMP 36.7; O2SAT 99; BMI 28.3
--- NOTE | 2022-06-22 18:44 | ED_ITS ---
HPI - General Adult General Chief complaint: Abdominal Pain Stated complaint: states diverticulitis Time Seen by Provider: 06/22/22 18:37 Source: patient Mode of arrival: Ambulatory Limitations: no limitations History of Present Illness HPI narrative: Patient is a 67-year-old female. Does have a history of diverticulitis. No prior abdominal surgeries. She states she is here for evaluation of abdominal pain and distention and nausea and loose stools for the past 4 days. States it feels just like her prior history of diverticulitis. She is not had any fevers. Has had issues in the past with GI motility. She has an appointment scheduled for her primary doctor to talk about a referral to see Gastroenterology. She states she does feel like her abdomen is distended. No urinary symptoms. Related Data Home Medications Medication Instructions Recorded Confirmed fluorometholone acetate 0.1 % eye 1 drp ophthalmic (eye) DAILY 02/25/20 09/24/21 drops,suspension doxycycline hyclate 50 mg tablet 50 mg PO BID 09/07/21 09/24/21 pantoprazole 40 mg tablet,delayed 1 tab PO DAILY 09/24/21 09/24/21 release Previous Rx's Medication Instructions Recorded citalopram 40 mg tablet (Celexa) 40 mg PO QDAY depression 90 days 02/05/20 #90 tabs levothyroxine 100 mcg tablet 100 mcg PO DAILY #90 tabs 03/12/20 bupropion HCl 150 mg tablet,12 hr 300 mg PO QAM #180 ea 04/06/21 sustained-release (Wellbutrin SR) ciprofloxacin HCl 500 mg tablet 500 mg PO BID 10 days #20 tabs 06/22/22 (Cipro) metronidazole 500 mg tablet 500 mg PO TID 10 days #30 tabs 06/22/22 ondansetron 4 mg disintegrating 4 mg PO Q6H PRN nausea and 06/22/22 tablet vomiting #10 tabs Allergies Allergy/AdvReac Type Severity Reaction Status Date / Time chlorhexidine Allergy Intermediate Rash Verified 06/22/22 18:36 [From Hibiclens] paraben Allergy Mild exzema Verified 06/22/22 18:36 Review of Systems Constitutional Constitutional: Reports system reviewed and no additional complaints, except as documented Gastrointestinal Gastrointestinal: Reports system reviewed and no additional complaints, except as documented Genitourinary Genitourinary: Reports system reviewed and no additional complaints, except as documented Integumentary/Breasts Skin/Breast: Reports system reviewed and no additional complaints, except as documented Hematologic/Lymphatic On Anticoagulants: No Patient History Medical History Concussion (2014) Easy bruisability H/O traumatic brain injury Hypothyroidism Hypothyroidism (10/20/10) Myalgia, unspecified site Ocular rosacea Osteoarthritis Surgical History History of tonsillectomy [place] teeth removed Family History Mother Congestive heart failure Father Aneurysm Alcoholism Social History household members: spouse Smoking Status: Smoker, status unknown alcohol intake: former Smoking Status: Smoker, status unknown alcohol intake frequency: other Substance Use Type: marijuana Exam Initial Vital Signs Initial Vital Signs: Vital Signs Temperature 98.0 F 06/22/22 18:34 Pulse Rate 95 H 06/22/22 18:34 Respiratory Rate 16 06/22/22 18:34 Blood Pressure 169/81 H 06/22/22 18:34 Pulse Oximetry 99 06/22/22 18:34 Oxygen Delivery Method Room Air 06/22/22 18:34 HENMT Head: normal to inspection GI Inspection: normal to inspection and distended Palpation: soft, No firm, No guarding, No rigid and tender (Diffuse tenderness but no rebound or guarding) Skin General: no rashes or lesions noted Neuro General: patient alert, patient awake and moves all extremities Extrem General: normal to inspection Course Vital Signs Vital signs: Vital Signs - 8 hr 06/22/22 18:34 Temperature 98.0 F Pulse Rate 95 H Respiratory Rate 16 Blood Pressure 169/81 H Pulse Oximetry 99 Oxygen Delivery Method Room Air Medical Decision Making MDM Narrative Medical decision making narrative: Patient does have a history of diverticulitis. She states that her presenting symptoms today feel very similar to her prior history of diverticulitis. She does have some abdominal distention but it is soft. No rebound or guarding. She has good bowel sounds. Had a long discussion with her regarding options. We discussed holding on any labs or CT scan today and presumptively calling this diverticulitis and sending her home with antibiotics and nausea medication. We did discuss the risks of this to include potentially missing a intra-abdominal surgical issue such as a abscess or perforation. The other option was to obtain the CT scan to confirm that there was not an emergent surgical issue. After this discussion the patient opted to hold on any radiologic studies for now. We will start her on antibiotics. They were sent to the pharmacy of her choice. She understands that if her symptoms worsen over the next 24-48 hours that she does need to return to the emergency department for further evaluation and at that time would most likely require a CT scan. Patient is alert oriented x3 in my opinion has capacity make decisions. Patient will be discharged home. Discharge Plan Departure Patient Disposition: Home Clinical Impression: Diverticulitis, Abdominal pain Instructions: DI for Diverticulitis, DI for Abdominal Pain-Adult Activity Restrictions/Additional Instructions: After our discussion today we opted not to perform a CT scan. I do recommend that you take the antibiotics as directed. They were sent to [facility] per your request. Also recommend a bland diet. If your symptoms worsen or if you develop fevers or continued vomiting or worsening abdominal pain please return to the emergency department for further evaluation. Keep all of your scheduled medical appointments. Prescriptions: New ciprofloxacin HCl [Cipro] 500 mg tablet 500 mg PO BID 10 Days Qty: 20 0RF metronidazole 500 mg tablet 500 mg PO TID 10 Days Qty: 30 0RF ondansetron 4 mg tablet,disintegrating 4 mg PO Q6H PRN (Reason: nausea and vomiting) Qty: 10 0RF No Action citalopram [Celexa] 40 mg tablet 40 mg PO QDAY 90 Days Qty: 90 1RF levothyroxine 100 mcg tablet 100 mcg PO DAILY Qty: 90 1RF bupropion HCl [Wellbutrin SR] 150 mg tablet sustained-release 12 hr 300 mg PO QAM Qty: 180 0RF Rx Instructions: PT WILL NEED TO BE SEEN BEFORE NEXT RENEWAL 04/06/21 doxycycline hyclate 50 mg tablet 50 mg PO BID pantoprazole 40 mg tablet,delayed release (DR/EC) 1 tab PO DAILY Patient Comments: TAKE ONE TABLET BY MOUTH ONE TIME DAILY fluorometholone acetate 0.1 % Drops,Suspension 1 drp OPHTHALMIC (EYE) DAILY Referrals: Aye [facility] [Primary Care Provider] - Stand Alone Forms: Patient Portal/API
== END 2022-06-22 19:09 | disposition home or self-care (01) ==
LOC: ED 18:50
PROVIDERS: Emergency Provider Emergency Medicine; PCP Family Medicine
DX: K57.92 Diverticulitis of intestine, part unspecified, without perforation or abscess without bleeding (principal)
CPT/HCPCS: 99281

== ENCOUNTER 2022-06-25 10:56 | Observation (INO) | payer OTHER, SELFPAY ==
[2020-02-25 14:10] VITALS: BMI 28.8
[2022-06-25] VITALS (162 sets, daily range): BP systolic 57–118; BP diastolic 36–73; PULSE 51–85; RESP 8–43; TEMP 36.7–37.2; O2SAT 95–100; BMI 29.2
[2022-06-25 12:17] LABS: Add Manual Diff / Slide Review NO; Basophils Absolute Auto 100 /uL (0-100); Eosinophils Absolute Auto 400 /uL (0-450); Eosinophils Percent Auto 4.4 % (2-4); Hematocrit 37.1 % (36-46); Hemoglobin 12.7 g/dL (12.0-16.0); Lymphocytes Absolute Auto 2000 /uL (1100-4500); Lymphocytes Percent Auto 19.7 % (25-40); Mean Corpuscular HGB Conc 34.2 % (30-36); Mean Corpuscular Hemoglobin 31.2 PG (26-34); Mean Corpuscular Volume 91.3 fL (80-100); Monocytes Absolute Auto 800 /uL (0-900); Monocytes Percent Auto 8.2 % (3-14); Neutrophils Absolute Auto 6600 /uL (1500-7000); Neutrophils Percent Auto 66.7 % (50-75); Platelet Count 227 X10^3/uL (150-400); Red Blood Cell Count 4.07 X10^6/uL (4.0-5.2); White Blood Cell Count 9.9 X10^3/uL (4.5-11.0)
[2022-06-25 12:29] LABS: Lactate (Lactic Acid) 0.7 mmol/L (0.7-2.1)
[2022-06-25 12:32] LABS: Alanine Aminotransferase 15 IU/L (<35); Albumin 3.5 g/dL (3.5-5.0); Albumin Globulin Ratio 1.3 (1.0-2.8); Alkaline Phosphatase 48 U/L (38-126); Aspartate Aminotransferase 21 IU/L (14-36); BUN Creatinine Ratio 14.6 (6-22); Bilirubin Total 0.4 mg/dL (0.2-1.3); Blood Urea Nitrogen 12 mg/dL (7-17); Calcium 8.5 mg/dL (8.4-10.2); Carbon Dioxide 32 mmol/L (22-32); Chloride 102 mmol/L (98-107); Estimated Glomerular Filt Rate > 60 mL/min (>60); Globulin 2.7 g/dL (1.7-4.1); Glucose 96 mg/dL (80-110); HEMOLYSIS < 15 (0-50); Lipase 36 U/L (23-300); Potassium 4.1 mmol/L (3.4-5.1); Sodium 137 mmol/L (137-145); Total Protein 6.2 g/dL (6.3-8.2)
--- NOTE | 2022-06-25 12:58 | ED_ITS ---
HPI - Abdominal Pain General Chief Complaint: Abdominal Pain Stated Complaint: Diverticulitis getting worse Time Seen by Provider: 06/25/22 12:15 Source: patient Mode of arrival: Ambulatory History of Present Illness HPI narrative: Patient is a 67-year-old female who has a history of diverticulitis presenting today with increasing abdominal pain and bloating. She was seen and evaluated here on 06/22/2022. It was discussed line labs and CT however based on history and current symptoms thought to just start on antibiotics. She reports that she said clear liquid stool ongoing for a number of days it has started to slow down since the antibiotics but she really feels like she is bloated. She is noted to be mildly hypotensive. She denies any dizziness lightheadedness or passing out. She feels like she is dehydrated she is not really drinking a lot. She certainly has a decrease in appetite. No fever chills or chest pain. Related Data Home Medications Medication Instructions Recorded Confirmed fluorometholone acetate 0.1 % eye 1 drp ophthalmic (eye) DAILY 02/25/20 06/25/22 drops,suspension doxycycline hyclate 50 mg tablet 50 mg PO BID 09/07/21 06/25/22 citalopram 20 mg tablet 20 mg PO DAILY anxiety 06/25/22 06/25/22 levothyroxine 112 mcg tablet 112 mcg PO DAILY Hypothyroid 06/25/22 06/25/22 Allergies Allergy/AdvReac Type Severity Reaction Status Date / Time chlorhexidine Allergy Intermediate Rash Verified 06/25/22 11:06 [facility] paraben Allergy Mild exzema Verified 06/25/22 11:06 Review of Systems Review of Systems ROS Unobtainable: All systems reviewed & are unremarkable except as noted in HPI and below Patient History Medical History Concussion (2014) Easy bruisability H/O traumatic brain injury Hypothyroidism Hypothyroidism (10/20/10) Myalgia, unspecified site Ocular rosacea Osteoarthritis Surgical History History of tonsillectomy [place] teeth removed Family History Mother Congestive heart failure Father Aneurysm Alcoholism Social History household members: spouse Smoking Status: Smoker, status unknown alcohol intake: former Smoking Status: Smoker, status unknown alcohol intake frequency: other Substance Use Type: marijuana Exam Initial Vital Signs Initial Vital Signs: Vital Signs Temperature 98.1 F 06/25/22 11:00 Pulse Rate 79 06/25/22 11:00 Respiratory Rate 15 06/25/22 11:00 Blood Pressure 99/62 06/25/22 11:00 Pulse Oximetry 98 06/25/22 11:00 Oxygen Delivery Method Room Air 06/25/22 11:00 GENERAL: Alert pleasant 67-year-old female and in [no acute] distress. HEENT: Head atraumatic,EOMI, pupils reactive, face symmetric, [moist] mucous membranes CARDIOVASCULAR: Regular rate and rhythm without murmurs, rubs or gallops. RESPIRATORY: Breath sounds equal bilaterally, no wheezes rales or rhonchi. ABDOMEN: Soft, minimal distention no guarding no rebound normal bowel sounds EXTREMITIES: Normal range of motion, no clubbing or edema. Neurovascularly intact NEUROLOGICAL: Alert and oriented x4. SKIN: Warm, dry, no laceration, no petechiae, no rashes or lesions. Course Orders Ordered: ED Orders 06/25/22 12:05 Complete Blood Count AUTO DIFF Stat Comprehensive Metabolic Panel Stat Free T4, Direct Thyroxine Urgent Lactate (Lactic Acid) Stat Lipase Stat Magnesium Urgent NT-proBNP (BNP-Adult 18+) Urgent TSH w/ Reflex to FT4 Urgent 06/25/22 12:35 ETOH [Ethanol (ETOH)] Stat 06/25/22 12:58 CT abdomen pelvis w con Stat 06/25/22 13:59 Procalcitonin Stat 06/25/22 14:07 Blood Culture Stat Lactate (Lactic Acid) Stat Troponin & CK Cardiac Panel Stat 06/25/22 14:11 Covid-19 + FLU A/B + RSV - PCR Stat 06/25/22 14:17 Urine Drug Screen, Rapid Stat 06/25/22 14:34 Ictotest Urine Stat Urine Microscopic Stat 06/25/22 14:42 EKG-12 Lead Stat 06/25/22 16:21 Education, smoking cessation ONGOING 06/26/22 05:00 BMP [Basic Metabolic Panel] DAILY CBC Auto Diff [Complete Blood Count AUTO DIFF] DAILY Cortisol AM (Before 10AM) Urgent 06/27/22 05:00 BMP [Basic Metabolic Panel] DAILY CBC Auto Diff [Complete Blood Count AUTO DIFF] DAILY 06/28/22 05:00 BMP [Basic Metabolic Panel] DAILY CBC Auto Diff [Complete Blood Count AUTO DIFF] DAILY Acetaminophen (Acetaminophen 325 Mg Tablet) 650 mg PO Q6H PRN PRN Reason: Fever/Mild Pain (1-3) Bupropion HCl (Bupropion Sr 150 Mg Tab) 300 mg PO DAILY [facility] Citalopram Hydrobromide (Citalopram 10 Mg Tablet) 40 mg PO DAILY [facility] Citalopram Hydrobromide (Citalopram 10 Mg Tablet) 20 mg PO DAILY [facility] Enoxaparin Sodium (Enoxaparin 40 Mg/0.4 Ml Syringe) 40 mg SUBCUT DAILY [facility] Sodium Chloride (Normal Saline 0.9%) 1,000 mls @ 150 mls/hr IV BOLUS ONE Stop: 06/25/22 22:26 Last Infusion: 06/25/22 18:07 Dose: 150 mls/hr Documented By: Infusion: 06/25/22 17:21 Dose: 0 mls/hr Documented By: Admin: 06/25/22 15:51 Dose: 150 mls/hr Documented By: CELINE Piperacillin Sod/Tazobactam (Sod 3.375 gm/ Sodium Chloride) 100 mls @ 25 mls/hr IV Q8H [facility] Levothyroxine Sodium (Levothyroxine 100 Mcg Tablet) 100 mcg PO 0600 [facility] Levothyroxine Sodium (Levothyroxine 112 Mcg Tablet) 112 mcg PO DAILY@0600 [facility] Melatonin (Melatonin 3 Mg Tablet) 6 mg PO BEDTIME PRN PRN Reason: Insomnia Naloxone HCl (Naloxone 0.4 Mg/Ml Vial) 0.2 mg IV Q2MIN PRN PRN Reason: Opiate Reversal Ondansetron HCl (Ondansetron 4 Mg/2 Ml Inj) 4 mg IV Q6HR PRN PRN Reason: Nausea And Vomiting Pantoprazole Sodium (Pantoprazole Dr 40 Mg Tablet) 40 mg PO 0600 [facility] Polyethylene Glycol (Polyethylene Glycol 3350 17 Gm Powd.Pack) 17 gm PO DAILY PRN PRN Reason: Constipation Polyethylene Glycol (Polyethylene Glycol 3350 17 Gm Powd.Pack) 17 gm PO DAILY [facility] Sennosides (Sennosides 8.6 Mg Tablet) 8.6 mg PO BID PRN PRN Reason: Constipation Sennosides (Sennosides 8.6 Mg Tablet) 8.6 mg PO BID KRYS Discontinued Medications Sodium Chloride (Normal Saline 0.9%) 1,000 mls @ 1,000 mls/hr IV BOLUS ONE Stop: 06/25/22 14:13 Last Infusion: 06/25/22 14:16 Dose: 0 mls/hr Documented By: Admin: 06/25/22 13:17 Dose: 1,000 mls/hr Documented By: SB Sodium Chloride (Normal Saline 0.9%) 1,000 mls @ 1,000 mls/hr IV BOLUS ONE Stop: 06/25/22 15:15 Last Admin: 06/25/22 14:44 Dose: Not Given Documented By: CELINE Sodium Chloride (Normal Saline 0.9%) 2,245.29 mls @ 748.43 mls/hr 30 ml/kg inf use over 3 hr (2245.29 ml) IV NOW ONE Stop: 06/25/22 17:18 Last Infusion: 06/25/22 15:08 Dose: 0 mls/hr Documented By: Admin: 06/25/22 14:43 Dose: 748.43 mls/hr Documented By: SB Piperacillin Sod/Tazobactam (Sod 4.5 gm/ Sodium Chloride) 100 mls @ 200 mls/hr IV NOW ONE Stop: 06/25/22 14:51 Last Infusion: 06/25/22 15:46 Dose: 0 mls/hr Documented By: Admin: 06/25/22 14:59 Dose: 200 mls/hr Documented By: CELINE Ketorolac Tromethamine (Ketorolac 30 Mg/Ml Vial) 15 mg IV NOW ONE Stop: 06/25/22 13:11 Last Admin: 06/25/22 13:17 Dose: 15 mg Documented By: CELINE Vital Signs Vital signs: Vital Signs - 8 hr 06/25/22 12:06 06/25/22 12:08 06/25/22 12:08 Pulse Rate 64 68 Respiratory Rate Blood Pressure 90/53 L Pulse Oximetry 100 100 Oxygen Delivery Method 06/25/22 12:30 06/25/22 13:00 06/25/22 13:09 Pulse Rate 58 L 56 L 68 Respiratory Rate Blood Pressure Pulse Oximetry 97 97 100 Oxygen Delivery Method 06/25/22 13:09 06/25/22 13:12 06/25/22 13:12 Pulse Rate 68 Respiratory Rate Blood Pressure 112/62 104/57 L Pulse Oximetry 99 Oxygen Delivery Method 06/25/22 13:14 06/25/22 13:16 06/25/22 13:18 Pulse Rate 56 L 58 L 63 Respiratory Rate 9 L 21 18 Blood Pressure Pulse Oximetry 98 98 99 Oxygen Delivery Method 06/25/22 13:20 06/25/22 13:22 06/25/22 13:24 Pulse Rate 60 58 L 60 Respiratory Rate 19 24 23 Blood Pressure Pulse Oximetry 99 99 98 Oxygen Delivery Method 06/25/22 13:34 06/25/22 13:36 06/25/22 13:38 Pulse Rate 64 63 73 Respiratory Rate 10 L 29 H Blood Pressure Pulse Oximetry 97 100 95 Oxygen Delivery Method 06/25/22 13:40 06/25/22 13:42 06/25/22 13:44 Pulse Rate 60 59 L 57 L Respiratory Rate 11 L 17 17 Blood Pressure Pulse Oximetry 99 98 98 Oxygen Delivery Method 06/25/22 13:46 06/25/22 13:48 06/25/22 13:48 Pulse Rate 58 L 55 L Respiratory Rate 18 18 Blood Pressure 89/47 L Pulse Oximetry 99 99 Oxygen Delivery Method 06/25/22 13:50 06/25/22 13:50 06/25/22 13:52 Pulse Rate 58 L Respiratory Rate 18 Blood Pressure 75/45 L 87/53 L Pulse Oximetry 99 Oxygen Delivery Method 06/25/22 13:52 06/25/22 13:54 06/25/22 13:55 Pulse Rate 57 L 56 L 58 L Respiratory Rate 19 18 18 Blood Pressure Pulse Oximetry 99 98 100 Oxygen Delivery Method 06/25/22 13:55 06/25/22 13:56 06/25/22 13:58 Pulse Rate 56 L Respiratory Rate 18 Blood Pressure 94/46 L 87/54 L Pulse Oximetry 99 Oxygen Delivery Method 06/25/22 13:58 06/25/22 14:00 06/25/22 14:00 Pulse Rate 62 65 Respiratory Rate 19 17 Blood Pressure 88/57 L Pulse Oximetry 100 100 Oxygen Delivery Method 06/25/22 14:02 06/25/22 14:04 06/25/22 14:04 Pulse Rate 69 61 Respiratory Rate 26 H 20 Blood Pressure 57/36 L Pulse Oximetry 100 100 Oxygen Delivery Method 06/25/22 14:06 06/25/22 14:06 06/25/22 14:08 Pulse Rate 62 65 Respiratory Rate 19 23 Blood Pressure 96/55 L Pulse Oximetry 100 100 Oxygen Delivery Method 06/25/22 14:10 06/25/22 14:12 06/25/22 14:13 Pulse Rate 65 62 Respiratory Rate 17 20 Blood Pressure 98/49 L Pulse Oximetry 100 100 Oxygen Delivery Method 06/25/22 14:13 06/25/22 14:14 06/25/22 14:15 Pulse Rate 64 65 Respiratory Rate 17 17 Blood Pressure 96/52 L Pulse Oximetry 100 100 Oxygen Delivery Method 06/25/22 14:15 06/25/22 14:16 06/25/22 14:17 Pulse Rate 62 66 62 Respiratory Rate 17 18 16 Blood Pressure Pulse Oximetry 100 100 100 Oxygen Delivery Method 06/25/22 14:18 06/25/22 14:18 06/25/22 14:20 Pulse Rate 61 64 Respiratory Rate 16 19 Blood Pressure 95/51 L Pulse Oximetry 100 100 Oxygen Delivery Method 06/25/22 14:21 06/25/22 14:21 06/25/22 14:22 Pulse Rate 67 64 Respiratory Rate 24 16 Blood Pressure 100/58 L Pulse Oximetry 100 100 Oxygen Delivery Method 06/25/22 14:24 06/25/22 14:24 06/25/22 14:26 Pulse Rate 71 68 Respiratory Rate 20 16 Blood Pressure 105/57 L Pulse Oximetry 100 100 Oxygen Delivery Method Room Air 06/25/22 14:27 06/25/22 14:27 06/25/22 14:28 Pulse Rate 66 68 Respiratory Rate 22 Blood Pressure 89/55 L Pulse Oximetry 100 100 Oxygen Delivery Method 06/25/22 14:30 06/25/22 14:30 06/25/22 14:32 Pulse Rate 69 69 Respiratory Rate 20 Blood Pressure 103/60 Pulse Oximetry 100 100 Oxygen Delivery Method 06/25/22 14:34 06/25/22 14:34 06/25/22 14:36 Pulse Rate 66 65 Respiratory Rate 23 18 Blood Pressure 102/54 L Pulse Oximetry 100 Oxygen Delivery Method 06/25/22 14:38 06/25/22 14:40 06/25/22 14:40 Pulse Rate 68 65 Respiratory Rate 21 17 Blood Pressure 97/56 L Pulse Oximetry 100 100 Oxygen Delivery Method 06/25/22 14:42 06/25/22 14:44 06/25/22 14:45 Pulse Rate 64 69 Respiratory Rate 16 16 Blood Pressure 94/54 L Pulse Oximetry 100 100 Oxygen Delivery Method 06/25/22 14:45 06/25/22 14:46 06/25/22 14:48 Pulse Rate 66 64 65 Respiratory Rate 17 16 17 Blood Pressure Pulse Oximetry 100 100 100 Oxygen Delivery Method Room Air 06/25/22 14:50 06/25/22 14:50 06/25/22 14:52 Pulse Rate 70 73 Respiratory Rate 21 37 H Blood Pressure 98/55 L Pulse Oximetry 100 100 Oxygen Delivery Method 06/25/22 14:54 06/25/22 14:55 06/25/22 14:55 Pulse Rate 76 73 Respiratory Rate 14 14 Blood Pressure 96/57 L Pulse Oximetry 100 100 Oxygen Delivery Method 06/25/22 14:56 06/25/22 14:58 06/25/22 15:00 Pulse Rate 76 76 Respiratory Rate 36 H 26 H Blood Pressure 103/59 L Pulse Oximetry 100 100 Oxygen Delivery Method 06/25/22 15:00 06/25/22 15:02 06/25/22 15:04 Pulse Rate 69 69 71 Respiratory Rate 16 20 19 Blood Pressure Pulse Oximetry 100 100 100 Oxygen Delivery Method 06/25/22 15:05 06/25/22 15:05 06/25/22 15:06 Pulse Rate 68 69 Respiratory Rate 20 16 Blood Pressure 105/61 Pulse Oximetry 100 100 Oxygen Delivery Method 06/25/22 15:08 06/25/22 15:10 06/25/22 15:10 Pulse Rate 66 66 Respiratory Rate 15 16 Blood Pressure 101/58 L Pulse Oximetry 100 100 Oxygen Delivery Method 06/25/22 15:12 06/25/22 15:14 06/25/22 15:15 Pulse Rate 67 67 Respiratory Rate 16 16 Blood Pressure 101/59 L Pulse Oximetry 100 100 Oxygen Delivery Method Room Air 06/25/22 15:15 06/25/22 15:16 06/25/22 15:18 Pulse Rate 74 72 73 Respiratory Rate 15 19 Blood Pressure Pulse Oximetry 100 100 100 Oxygen Delivery Method 06/25/22 15:20 06/25/22 15:21 06/25/22 15:21 Pulse Rate 73 65 Respiratory Rate 19 16 Blood Pressure 98/57 L Pulse Oximetry 100 100 Oxygen Delivery Method 06/25/22 15:22 06/25/22 15:24 06/25/22 15:25 Pulse Rate 66 64 Respiratory Rate 17 15 Blood Pressure 94/56 L Pulse Oximetry 100 100 Oxygen Delivery Method 06/25/22 15:25 06/25/22 15:26 06/25/22 15:28 Pulse Rate 64 65 63 Respiratory Rate 19 16 16 Blood Pressure Pulse Oximetry 100 100 100 Oxygen Delivery Method 06/25/22 15:30 06/25/22 15:30 06/25/22 15:32 Pulse Rate 64 62 Respiratory Rate 16 16 Blood Pressure 102/61 Pulse Oximetry 100 100 Oxygen Delivery Method 06/25/22 15:34 06/25/22 15:35 06/25/22 15:35 Pulse Rate 67 56 L Respiratory Rate 16 17 Blood Pressure 101/60 Pulse Oximetry 100 100 Oxygen Delivery Method 06/25/22 15:36 06/25/22 15:38 06/25/22 15:40 Pulse Rate 59 L 63 Respiratory Rate 17 17 Blood Pressure 107/59 L Pulse Oximetry 100 100 Oxygen Delivery Method 06/25/22 15:40 06/25/22 15:42 06/25/22 15:44 Pulse Rate 55 L 70 61 Respiratory Rate 17 30 H 13 Blood Pressure Pulse Oximetry 100 100 100 Oxygen Delivery Method 06/25/22 15:46 06/25/22 15:48 06/25/22 15:50 Pulse Rate 63 57 L Respiratory Rate 17 16 Blood Pressure 97/57 L Pulse Oximetry 100 100 Oxygen Delivery Method 06/25/22 15:50 06/25/22 15:52 06/25/22 15:54 Pulse Rate 62 56 L 68 Respiratory Rate 16 16 22 Blood Pressure Pulse Oximetry 99 100 99 Oxygen Delivery Method 06/25/22 15:55 06/25/22 15:55 06/25/22 15:56 Pulse Rate 64 56 L Respiratory Rate 17 16 Blood Pressure 97/58 L Pulse Oximetry 100 100 Oxygen Delivery Method 06/25/22 15:58 06/25/22 16:00 06/25/22 16:00 Pulse Rate 57 L 60 Respiratory Rate 16 17 Blood Pressure 105/65 Pulse Oximetry 99 99 Oxygen Delivery Method 06/25/22 16:02 06/25/22 16:04 06/25/22 16:05 Pulse Rate 63 67 65 Respiratory Rate 17 25 H 14 Blood Pressure Pulse Oximetry 99 99 100 Oxygen Delivery Method 06/25/22 16:05 06/25/22 16:06 06/25/22 16:08 Pulse Rate 63 65 Respiratory Rate 16 14 Blood Pressure 89/52 L Pulse Oximetry 100 100 Oxygen Delivery Method 06/25/22 16:10 06/25/22 16:11 06/25/22 16:11 Pulse Rate 63 62 Respiratory Rate 17 15 Blood Pressure 118/57 L Pulse Oximetry 100 99 Oxygen Delivery Method 06/25/22 16:12 06/25/22 16:14 06/25/22 16:15 Pulse Rate 70 77 74 Respiratory Rate 24 18 Blood Pressure Pulse Oximetry 100 99 100 Oxygen Delivery Method 06/25/22 16:15 06/25/22 16:16 06/25/22 16:18 Pulse Rate 68 66 Respiratory Rate 19 Blood Pressure 102/55 L Pulse Oximetry 99 99 Oxygen Delivery Method 06/25/22 16:20 06/25/22 16:20 06/25/22 16:22 Pulse Rate 62 65 Respiratory Rate 18 17 Blood Pressure 97/54 L Pulse Oximetry 100 100 Oxygen Delivery Method 06/25/22 16:24 06/25/22 16:25 06/25/22 16:25 Pulse Rate 65 64 Respiratory Rate 17 15 Blood Pressure 101/59 L Pulse Oximetry 100 100 Oxygen Delivery Method 06/25/22 16:26 06/25/22 16:28 06/25/22 16:30 Pulse Rate 63 65 74 Respiratory Rate 16 22 31 H Blood Pressure Pulse Oximetry 100 100 100 Oxygen Delivery Method 06/25/22 16:32 06/25/22 16:34 06/25/22 16:36 Pulse Rate 68 68 Respiratory Rate 41 H 23 Blood Pressure 88/58 L Pulse Oximetry 99 100 Oxygen Delivery Method 06/25/22 16:36 06/25/22 16:38 06/25/22 16:40 Pulse Rate 63 58 L 59 L Respiratory Rate 15 11 L 17 Blood Pressure Pulse Oximetry 100 100 100 Oxygen Delivery Method 06/25/22 16:42 06/25/22 16:44 06/25/22 16:45 Pulse Rate 61 60 Respiratory Rate 17 17 Blood Pressure 107/57 L Pulse Oximetry 100 100 Oxygen Delivery Method 06/25/22 16:45 Pulse Rate 60 Respiratory Rate 16 Blood Pressure Pulse Oximetry 100 Oxygen Delivery Method MDM - Abdominal Pain Lab Data 06/25/22 12:05 06/25/22 12:05 Labs: Lab Results 06/25/22 06/25/22 06/25/22 Range/Units 12:05 12:05 12:05 WBC 9.9 (4.5-11.0) X10^3/uL RBC 4.07 (4.0-5.2) X10^6/uL Hgb 12.7 (12.0-16.0) g/dL Hct 37.1 (36-46) % MCV 91.3 (80-100) fL MCH 31.2 (26-34) PG MCHC 34.2 (30-36) % RDW 13.0 (11.6-14.8) % Plt Count 227 (150-400) X10^3/uL Neut % (Auto) 66.7 (50-75) % Lymph % (Auto) 19.7 L (25-40) % [place] % (Auto) 8.2 (3-14) % Eos % (Auto) 4.4 H (2-4) % Baso % (Auto) 1.0 (0-2) % Neut # (Auto) 6600 (0982-6353) /uL Lymph # (Auto) 2000 (8043-9730) /uL [place] # (Auto) 800 (0-900) /uL Eos # (Auto) 400 (0-450) /uL Baso # (Auto) 100 (0-100) /uL Sodium 137 (137-145) mmol/L Potassium 4.1 (3.4-5.1) mmol/L Chloride 102 (98-107) mmol/L Carbon Dioxide 32 (22-32) mmol/L BUN 12 (7-17) mg/dL Creatinine 0.82 (0.52-1.04) mg/dL Estimated GFR > 60 (>60) mL/min BUN/Creatinine Ratio 14.6 (6-22) Glucose 96 (80-110) mg/dL Lactate 0.7 (0.7-2.1) mmol/L Calcium 8.5 (8.4-10.2) mg/dL Magnesium (1.6-2.3) mg/dL Total Bilirubin 0.4 (0.2-1.3) mg/dL AST 21 (14-36) IU/L ALT 15 (<35) IU/L Alkaline Phosphatase 48 (38-126) U/L Total Creatine Kinase (30-135) U/L CK-MB (CK-2) CK-MB (CK-2) Rel Index Troponin I (0.01-0.034) ng/mL NT-Pro-B Natriuret Pep (<125) pg/mL Total Protein 6.2 L (6.3-8.2) g/dL Albumin 3.5 (3.5-5.0) g/dL Globulin 2.7 (1.7-4.1) g/dL Albumin/Globulin Ratio 1.3 (1.0-2.8) Lipase 36 (23-300) U/L Procalcitonin (<0.5) ng/mL TSH (0.47-4.68) uIU/mL Free T4 (0.78-2.19) ng/dL Ur Bilirubin Confirm (Negative) Urine RBC (0-5/HPF) Urine WBC (0-5/HPF) Ur Squamous Epith Cells (0-5/HPF) Urine Bacteria (None) Ur Culture Indicated? U Opiates 300ng/mL cut (Negative) Ur Oxycodone Screen (Negative) Urine Methadone Screen (Negative) Ur Barbiturates Screen (Negative) U Tricyclic Antidepress (Negative) Ur Phencyclidine Scrn (Negative) Ur Amphetamines Screen (Negative) U Methamphetamines Scrn (Negative) Ur MDMA Scrn (Ecstasy) (Negative) U Benzodiazepines Scrn (Negative) Urine Cocaine Screen (Negative) U Marijuana (THC) Screen (Negative) Ethyl Alcohol ( - 10) mg/dL SARS-CoV-2 (PCR) (Negative) Influenza A (RT-PCR) (NEGATIVE) Influenza B (RT-PCR) (NEGATIVE) RSV (PCR) (Negative) 06/25/22 06/25/22 06/25/22 Range/Units 12:05 12:05 12:05 WBC (4.5-11.0) X10^3/uL RBC (4.0-5.2) X10^6/uL Hgb (12.0-16.0) g/dL Hct (36-46) % MCV (80-100) fL MCH (26-34) PG MCHC (30-36) % RDW (11.6-14.8) % Plt Count (150-400) X10^3/uL Neut % (Auto) (50-75) % Lymph % (Auto) (25-40) % [place] % (Auto) (3-14) % Eos % (Auto) (2-4) % Baso % (Auto) (0-2) % Neut # (Auto) (1223-4652) /uL Lymph # (Auto) (4178-1962) /uL [place] # (Auto) (0-900) /uL Eos # (Auto) (0-450) /uL Baso # (Auto) (0-100) /uL Sodium (137-145) mmol/L Potassium (3.4-5.1) mmol/L Chloride (98-107) mmol/L Carbon Dioxide (22-32) mmol/L BUN (7-17) mg/dL Creatinine (0.52-1.04) mg/dL Estimated GFR (>60) mL/min BUN/Creatinine Ratio (6-22) Glucose (80-110) mg/dL Lactate (0.7-2.1) mmol/L Calcium (8.4-10.2) mg/dL Magnesium 2.0 (1.6-2.3) mg/dL Total Bilirubin (0.2-1.3) mg/dL AST (14-36) IU/L ALT (<35) IU/L Alkaline Phosphatase (38-126) U/L Total Creatine Kinase (30-135) U/L CK-MB (CK-2) CK-MB (CK-2) Rel Index Troponin I (0.01-0.034) ng/mL NT-Pro-B Natriuret Pep 79 (<125) pg/mL Total Protein (6.3-8.2) g/dL Albumin (3.5-5.0) g/dL Globulin (1.7-4.1) g/dL Albumin/Globulin Ratio (1.0-2.8) Lipase (23-300) U/L Procalcitonin (<0.5) ng/mL TSH 0.41 L (0.47-4.68) uIU/mL Free T4 1.30 (0.78-2.19) ng/dL Ur Bilirubin Confirm (Negative) Urine RBC (0-5/HPF) Urine WBC (0-5/HPF) Ur Squamous Epith Cells (0-5/HPF) Urine Bacteria (None) Ur Culture Indicated? U Opiates 300ng/mL cut (Negative) Ur Oxycodone Screen (Negative) Urine Methadone Screen (Negative) Ur Barbiturates Screen (Negative) U Tricyclic Antidepress (Negative) Ur Phencyclidine Scrn (Negative) Ur Amphetamines Screen (Negative) U Methamphetamines Scrn (Negative) Ur MDMA Scrn (Ecstasy) (Negative) U Benzodiazepines Scrn (Negative) Urine Cocaine Screen (Negative) U Marijuana (THC) Screen (Negative) Ethyl Alcohol ( - 10) mg/dL SARS-CoV-2 (PCR) (Negative) Influenza A (RT-PCR) (NEGATIVE) Influenza B (RT-PCR) (NEGATIVE) RSV (PCR) (Negative) 06/25/22 06/25/22 06/25/22 Range/Units 12:35 13:59 14:07 WBC (4.5-11.0) X10^3/uL RBC (4.0-5.2) X10^6/uL Hgb (12.0-16.0) g/dL Hct (36-46) % MCV (80-100) fL MCH (26-34) PG MCHC (30-36) % RDW (11.6-14.8) % Plt Count (150-400) X10^3/uL Neut % (Auto) (50-75) % Lymph % (Auto) (25-40) % [place] % (Auto) (3-14) % Eos % (Auto) (2-4) % Baso % (Auto) (0-2) % Neut # (Auto) (3260-6127) /uL Lymph # (Auto) (3468-9275) /uL [place] # (Auto) (0-900) /uL Eos # (Auto) (0-450) /uL Baso # (Auto) (0-100) /uL Sodium (137-145) mmol/L Potassium (3.4-5.1) mmol/L Chloride (98-107) mmol/L Carbon Dioxide (22-32) mmol/L BUN (7-17) mg/dL Creatinine (0.52-1.04) mg/dL Estimated GFR (>60) mL/min BUN/Creatinine Ratio (6-22) Glucose (80-110) mg/dL Lactate (0.7-2.1) mmol/L Calcium (8.4-10.2) mg/dL Magnesium (1.6-2.3) mg/dL Total Bilirubin (0.2-1.3) mg/dL AST (14-36) IU/L ALT (<35) IU/L Alkaline Phosphatase (38-126) U/L Total Creatine Kinase 59 (30-135) U/L CK-MB (CK-2) TNP CK-MB (CK-2) Rel Index TNP Troponin I < 0.012 (0.01-0.034) ng/mL NT-Pro-B Natriuret Pep (<125) pg/mL Total Protein (6.3-8.2) g/dL Albumin (3.5-5.0) g/dL Globulin (1.7-4.1) g/dL Albumin/Globulin Ratio (1.0-2.8) Lipase (23-300) U/L Procalcitonin 0.03 (<0.5) ng/mL TSH (0.47-4.68) uIU/mL Free T4 (0.78-2.19) ng/dL Ur Bilirubin Confirm (Negative) Urine RBC (0-5/HPF) Urine WBC (0-5/HPF) Ur Squamous Epith Cells (0-5/HPF) Urine Bacteria (None) Ur Culture Indicated? U Opiates 300ng/mL cut (Negative) Ur Oxycodone Screen (Negative) Urine Methadone Screen (Negative) Ur Barbiturates Screen (Negative) U Tricyclic Antidepress (Negative) Ur Phencyclidine Scrn (Negative) Ur Amphetamines Screen (Negative) U Methamphetamines Scrn (Negative) Ur MDMA Scrn (Ecstasy) (Negative) U Benzodiazepines Scrn (Negative) Urine Cocaine Screen (Negative) U Marijuana (THC) Screen (Negative) Ethyl Alcohol < 10 ( - 10) mg/dL SARS-CoV-2 (PCR) (Negative) Influenza A (RT-PCR) (NEGATIVE) Influenza B (RT-PCR) (NEGATIVE) RSV (PCR) (Negative) 06/25/22 06/25/22 06/25/22 Range/Units 14:07 14:11 14:17 WBC (4.5-11.0) X10^3/uL RBC (4.0-5.2) X10^6/uL Hgb (12.0-16.0) g/dL Hct (36-46) % MCV (80-100) fL MCH (26-34) PG MCHC (30-36) % RDW (11.6-14.8) % Plt Count (150-400) X10^3/uL Neut % (Auto) (50-75) % Lymph % (Auto) (25-40) % [place] % (Auto) (3-14) % Eos % (Auto) (2-4) % Baso % (Auto) (0-2) % Neut # (Auto) (8932-1883) /uL Lymph # (Auto) (8661-1435) /uL [place] # (Auto) (0-900) /uL Eos # (Auto) (0-450) /uL Baso # (Auto) (0-100) /uL Sodium (137-145) mmol/L Potassium (3.4-5.1) mmol/L Chloride (98-107) mmol/L Carbon Dioxide (22-32) mmol/L BUN (7-17) mg/dL Creatinine (0.52-1.04) mg/dL Estimated GFR (>60) mL/min BUN/Creatinine Ratio (6-22) Glucose (80-110) mg/dL Lactate 0.9 (0.7-2.1) mmol/L Calcium (8.4-10.2) mg/dL Magnesium (1.6-2.3) mg/dL Total Bilirubin (0.2-1.3) mg/dL AST (14-36) IU/L ALT (<35) IU/L Alkaline Phosphatase (38-126) U/L Total Creatine Kinase (30-135) U/L CK-MB (CK-2) CK-MB (CK-2) Rel Index Troponin I (0.01-0.034) ng/mL NT-Pro-B Natriuret Pep (<125) pg/mL Total Protein (6.3-8.2) g/dL Albumin (3.5-5.0) g/dL Globulin (1.7-4.1) g/dL Albumin/Globulin Ratio (1.0-2.8) Lipase (23-300) U/L Procalcitonin (<0.5) ng/mL TSH (0.47-4.68) uIU/mL Free T4 (0.78-2.19) ng/dL Ur Bilirubin Confirm (Negative) Urine RBC (0-5/HPF) Urine WBC (0-5/HPF) Ur Squamous Epith Cells (0-5/HPF) Urine Bacteria (None) Ur Culture Indicated? U Opiates 300ng/mL cut Negative (Negative) Ur Oxycodone Screen Negative (Negative) Urine Methadone Screen Negative (Negative) Ur Barbiturates Screen Negative (Negative) U Tricyclic Antidepress Negative (Negative) Ur Phencyclidine Scrn Negative (Negative) Ur Amphetamines Screen Negative (Negative) U Methamphetamines Scrn Negative (Negative) Ur MDMA Scrn (Ecstasy) Negative (Negative) U Benzodiazepines Scrn Negative (Negative) Urine Cocaine Screen Negative (Negative) U Marijuana (THC) Screen Positive H (Negative) Ethyl Alcohol ( - 10) mg/dL SARS-CoV-2 (PCR) Negative (Negative) Influenza A (RT-PCR) Flu a negative (NEGATIVE) Influenza B (RT-PCR) Flu b negative (NEGATIVE) RSV (PCR) Negative (Negative) 06/25/22 06/25/22 Range/Units 14:34 14:34 WBC (4.5-11.0) X10^3/uL RBC (4.0-5.2) X10^6/uL Hgb (12.0-16.0) g/dL Hct (36-46) % MCV (80-100) fL MCH (26-34) PG MCHC (30-36) % RDW (11.6-14.8) % Plt Count (150-400) X10^3/uL Neut % (Auto) (50-75) % Lymph % (Auto) (25-40) % [place] % (Auto) (3-14) % Eos % (Auto) (2-4) % Baso % (Auto) (0-2) % Neut # (Auto) (6049-0469) /uL Lymph # (Auto) (3377-7014) /uL [place] # (Auto) (0-900) /uL Eos # (Auto) (0-450) /uL Baso # (Auto) (0-100) /uL Sodium (137-145) mmol/L Potassium (3.4-5.1) mmol/L Chloride (98-107) mmol/L Carbon Dioxide (22-32) mmol/L BUN (7-17) mg/dL Creatinine (0.52-1.04) mg/dL Estimated GFR (>60) mL/min BUN/Creatinine Ratio (6-22) Glucose (80-110) mg/dL Lactate (0.7-2.1) mmol/L Calcium (8.4-10.2) mg/dL Magnesium (1.6-2.3) mg/dL Total Bilirubin (0.2-1.3) mg/dL AST (14-36) IU/L ALT (<35) IU/L Alkaline Phosphatase (38-126) U/L Total Creatine Kinase (30-135) U/L CK-MB (CK-2) CK-MB (CK-2) Rel Index Troponin I (0.01-0.034) ng/mL NT-Pro-B Natriuret Pep (<125) pg/mL Total Protein (6.3-8.2) g/dL Albumin (3.5-5.0) g/dL Globulin (1.7-4.1) g/dL Albumin/Globulin Ratio (1.0-2.8) Lipase (23-300) U/L Procalcitonin (<0.5) ng/mL TSH (0.47-4.68) uIU/mL Free T4 (0.78-2.19) ng/dL Ur Bilirubin Confirm Negative (Negative) Urine RBC 1-5/hpf (0-5/HPF) Urine WBC 0-1/hpf (0-5/HPF) Ur Squamous Epith Cells 1-5 /hpf (0-5/HPF) Urine Bacteria None seen (None) Ur Culture Indicated? Cult not indicated U Opiates 300ng/mL cut (Negative) Ur Oxycodone Screen (Negative) Urine Methadone Screen (Negative) Ur Barbiturates Screen (Negative) U Tricyclic Antidepress (Negative) Ur Phencyclidine Scrn (Negative) Ur Amphetamines Screen (Negative) U Methamphetamines Scrn (Negative) Ur MDMA Scrn (Ecstasy) (Negative) U Benzodiazepines Scrn (Negative) Urine Cocaine Screen (Negative) U Marijuana (THC) Screen (Negative) Ethyl Alcohol ( - 10) mg/dL SARS-CoV-2 (PCR) (Negative) Influenza A (RT-PCR) (NEGATIVE) Influenza B (RT-PCR) (NEGATIVE) RSV (PCR) (Negative) Point of care testing: Urine Dip Bedside Urine Glucose Negative Bedside Urine Bilirubin + 1 Bedside Urine Ketone - Negative Urine Specific [place] 1.025 Bedside Urine Occult Blood +/- Bedside Urine pH 6.0 Bedside Urine Protein +/- 15 Bedside Urine Urobilinogen - Negative Bedside Urine Nitrite - Negative Bedside Urine Leukocytes + [address] scan - abdomen/pelvis: Radiologist's Impression: PROCEDURE:? CT ABDOMEN PELVIS W CON ? INDICATIONS:? hx diverticulitis ? TECHNIQUE:? After the administration of oral and IV contrast, axial sections were acquired from the lung bases to the pubic symphysis.? Coronal and sagittal reformats were performed.? For radiation dose reduction, the following was used:? automated exposure control, adjustment of mA and/or kV according to patient size. ? COMPARISON:? [facility], CT, ABDOMEN/PELVIS WITH CONTRAST, 11/28/2013, 12:34. ? FINDINGS:? Image quality:? Portions of the lower pelvis are suboptimally evaluated seco ndary to metallic streak artifact from hip arthroplasty. ? Lung bases:? Unremarkable.? ? Heart:? No significant findings. ? ? ABDOMEN: Liver:? Unremarkable.? ? Gallbladder:? Unremarkable.? ? Biliary ducts:? Unremarkable.? ? Pancreas:? Unremarkable.? ? Spleen:? Unremarkable.? ? Adrenal Glands:? Unremarkable.? ? Kidneys and Ureters:? Unremarkable.? ? ? Stomach and Bowel:? Stomach, small bowel loops, and colon are nonobstructive.? Extensive colonic diverticula are present.? While there is a slight appearance of thickening within the sigmoid colon no pericolonic inflammatory changes present.? Moderate colonic stool is present. Peritoneum:? No abnormal intraperitoneal fluid.? No free air.? ? Ventral Wall: ? No hernia.? Abdominal Nodes:? No retroperitoneal or mesenteric adenopathy by size criteria.? Vessels:? Aorta and inferior vena cava are normal in size.? ? PELVIS: Pelvic Organs:? Unremarkable.? ? Bladder:? Unremarkable.? ? Pelvic Nodes: No enlarged lymph nodes.? Miscellaneous: No inguinal hernias are seen. ? ? ? Bones:? Unremarkable.? IMPRESSION:? ? Prominent colonic diverticula notably in the sigmoid colon.? While there is a mild appearance of thickening within the sigmoid no pericolonic inflammatory changes present.? While this could represent a very early colitis, other etiology such as chronic thickening secondary to sequela of remote inflammation should be considered.? ? ? Dictated by: Belkys Lara M.D. on 06/25/2022 at 14:06 ? ? ECG Data Interpretation: Normal sinus rhythm rate 65 MD interval 174 QRS [address] changes T-wave inversions MDM Narrative Medical decision making narrative: The patient 67-year-old female presents today with abdominal pain history of diverticulitis previously seen 2 days ago started on Cipro and Flagyl. Today CT abdomen shows possible colitis no obvious diverticulitis. She is no leukocytosis she has normal electrolytes normal creatinine, 2 normal lactates, negative procalcitonin no concern for severe infection accept that patient's blood pressure is low and continues to drop. Patient's blood pressure initially soft 90s to 100s however her blood pressure decreased into the 50s briefly and then into the 80s. After review of history multiple blood pressure she has a normal blood pressure. Previously her blood pressure here 3 days ago was 169/81 previously 114/63, her blood pressure seems to be a little bit low in the 1 0 4s but not typically in the 90s and certainly not in the 80s. Repeat blood work was drawn she is responded well to fluids. She has been complaining of some ear diarrhea but she has no evidence of significant dehydration on exam or electrolytes. Her abdomen is reexamined today remains soft minimally tender pain is not out of proportion do not suspect mesenteric ischemia. She overall is awake and alert. She is not on any blood pressure medication she did not get any pain medications except for Toradol here in the emergency department. She is given a dose of Zosyn in the ED empirically to cover sepsis. She is still may be septic but is afebrile does not meet any other criteria. given sepsis fluids anyway. Blood pressure did improve does not need a central line or vasopressors at this time. At this time there is no indication for surgery to get involved it is not too abdomen no abnormality on CT. Abdomen is not in abdomen Discussed case with Dr. Aponte who kindly accepts for observation due to significant hypotension and dehydration in the emergency department. Agrees no surgery consult at this time. Discharge Plan Departure Patient Disposition: Admitted as Observation Clinical Impression: Dehydration, Colitis Admit Date/Time: 06/25/22 16:56 Admit Provider: Kareem Aponte
--- NOTE | 2022-06-25 12:58 | DI.CT.S_ITS ---
PROCEDURE: CT ABDOMEN PELVIS W CON INDICATIONS: hx diverticulitis TECHNIQUE: After the administration of oral and IV contrast, axial sections were acquired from the lung bases to the pubic symphysis. Coronal and sagittal reformats were performed. For radiation dose reduction, the following was used: automated exposure control, adjustment of mA and/or kV according to patient size. COMPARISON: [facility], CT, ABDOMEN/PELVIS WITH CONTRAST, 11/28/2013, 12:34. FINDINGS: Image quality: Portions of the lower pelvis are suboptimally evaluated secondary to metallic streak artifact from hip arthroplasty. Lung bases: Unremarkable. Heart: No significant findings. ABDOMEN: Liver: Unremarkable. Gallbladder: Unremarkable. Biliary ducts: Unremarkable. Pancreas: Unremarkable. Spleen: Unremarkable. Adrenal Glands: Unremarkable. Kidneys and Ureters: Unremarkable. Stomach and Bowel: Stomach, small bowel loops, and colon are nonobstructive. Extensive colonic diverticula are present. While there is a slight appearance of thickening within the sigmoid colon no pericolonic inflammatory changes present. Moderate colonic stool is present. Peritoneum: No abnormal intraperitoneal fluid. No free air. Ventral Wall: No hernia. Abdominal Nodes: No retroperitoneal or mesenteric adenopathy by size criteria. Vessels: Aorta and inferior vena cava are normal in size. PELVIS: Pelvic Organs: Unremarkable. Bladder: Unremarkable. Pelvic Nodes: No enlarged lymph nodes. Miscellaneous: No inguinal hernias are seen. Bones: Unremarkable. IMPRESSION: Prominent colonic diverticula notably in the sigmoid colon. While there is a mild appearance of thickening within the sigmoid no pericolonic inflammatory changes present. While this could represent a very early colitis, other etiology such as chronic thickening secondary to sequela of remote inflammation should be considered. Dictated by: Belkys Lara M.D. on 06/25/2022 at 14:06 Approved by: Belkys Lara M.D. on 06/25/2022 at 14:09
[2022-06-25] MEDS: KETOROLAC 30 MG/ML VIAL 15 MG IV (13:17)
[2022-06-25] MEDS: SODIUM CHLORIDE 0.9% 1,000 ML 1000 ML IV (13:17)
--- NOTE | 2022-06-25 14:18 | PC.NURSE ---
1400: Pt blood pressure decreases. Provider aware and new orders given.
[2022-06-25] MEDS: SODIUM CHLORIDE 0.9% 2,245.29 ML 748.43 ML IV (14:43)
[2022-06-25 14:48] LABS: Procalcitonin 0.03 ng/mL (<0.5)
[2022-06-25 14:50] LABS: Ictotest Urine Negative (Negative)
[2022-06-25 14:51] LABS: Creatine Kinase 59 U/L (30-135)
[2022-06-25 14:52] LABS: Lactate (Lactic Acid) 0.9 mmol/L (0.7-2.1)
[2022-06-25] MEDS: PIPERACILLIN/TAZO 4.5 GM in SODIUM CHLORIDE 0.9% 100 ML IV (14:59)
[2022-06-25 15:00] LABS: Influenza A - CEPHEID Flu A NEGATIVE (NEGATIVE); Influenza B - CEPHEID Flu B NEGATIVE (NEGATIVE); Respiratory Syncytial Virus Negative (Negative)
[2022-06-25 15:01] LABS: COVID-19 CEPHEID 4-PLEX PCR Negative (Negative)
[2022-06-25 15:04] LABS: Troponin I < 0.012 ng/mL (0.01-0.034)
--- NOTE | 2022-06-25 15:05 | PC.NURSE ---
Pt reports today that she feels like she is having a difficult time finding words. Pt also reports clear, slimey goo when she has BM. FAST exam is negative. Provider aware of pt complaints.
[2022-06-25 15:08] LABS: UR Morphine/Opiate cutoff 300 Negative (Negative); Ur Creatinine Normal (Normal); Ur Specific Gravity Normal (Normal); Urine Amphetamines Negative (Negative); Urine Barbiturates Negative (Negative); Urine Benzodiazepines Negative (Negative); Urine Cocaine Negative (Negative); Urine MDMA Negative (Negative); Urine Methadone Negative (Negative); Urine Methamphetamines Negative (Negative); Urine Oxycodone Negative (Negative); Urine Phencyclidine Negative (Negative); Urine Tetrahydrocannabinol Positive (Negative); Urine Tricyclic Antidepressant Negative (Negative); Urine pH Normal (Normal)
[2022-06-25 15:17] LABS: Bacteria Urine None Seen; Culture Indicated Urine Cult Not Indicated; RBC Urine 1-5/HPF (0-5/HPF); Squamous Epithelial Cell Urine 1-5 /HPF (0-5/HPF); WBC Urine 0-1/HPF (0-5/HPF)
[2022-06-25 15:28] LABS: Ethanol (ETOH) < 10 mg/dL
[2022-06-25] MEDS: SODIUM CHLORIDE 0.9% 1,000 ML 150 ML IV (15:51)
--- NOTE | 2022-06-25 16:39 | PM.HP.1 ---
History of Present Illness History of Present Illness Date Patient Seen: 06/25/22 Time Patient Seen: 19:02 Chief complaint: Diverticulitis getting worse Narrative: Merlene Heard is a 67-year-old female with past medical history of TBI, hypothyroidism, and OA who presents with abd pain and hypotension. She was recently diagnosed with diverticulitis as outpatient and has been taking Cipro and Flagyl. She had some improvement in her abdominal pain but it continued and she describes clear liquid stools. No zeynep diarrhea. Patient came to the ED for continued abdominal pain where CT scan showed sigmoid colitis. While in the ED patient's blood pressure dropped to 57/36 and she received 2 L NS boluses. Pressure improved mildly but was still staffed so she was admitted for monitoring. Patient states she denies chest pain, nausea vomiting, dysuria, dizziness, headache or visual changes. She has never had low blood pressure issues in the past. [facility] Medical History Concussion (2014) Easy bruisability H/O traumatic brain injury Hypothyroidism Hypothyroidism (10/20/10) Myalgia, unspecified site Ocular rosacea Osteoarthritis Surgical History History of tonsillectomy [place] teeth removed Family History Mother Congestive heart failure Father Aneurysm Alcoholism Social History household members: spouse Smoking Status: Smoker, status unknown alcohol intake: former Meds Home Medications and Allergies Home Medications Medication Instructions Recorded Confirmed Type fluorometholone acetate 0.1 % eye 1 drp ophthalmic (eye) DAILY 02/25/20 06/25/22 History drops,suspension doxycycline hyclate 50 mg tablet 50 mg PO BID 09/07/21 06/25/22 History citalopram 20 mg tablet 20 mg PO DAILY anxiety 06/25/22 06/25/22 History levothyroxine 112 mcg tablet 112 mcg PO DAILY Hypothyroid 06/25/22 06/25/22 History Allergies Allergy/AdvReac Type Severity Reaction Status Date / Time chlorhexidine Allergy Intermediate Rash Verified 06/25/22 11:06 [From Hibiclens] paraben Allergy Mild exzema Verified 06/25/22 11:06 Review of Systems Review of Systems Narrative: All other systems reviewed with the patient and are negative unless otherwise stated. Exam Vital Signs (past 8 hours): - 06/25/22 11:00 06/25/22 11:04 06/25/22 11:05 Temperature 98.1 F Pulse Rate 79 78 Respiratory Rate 15 Blood Pressure 99/62 99/62 Pulse Oximetry 98 98 Oxygen Delivery Method Room Air 06/25/22 11:05 06/25/22 12:06 06/25/22 12:08 Temperature Pulse Rate 70 64 Respiratory Rate Blood Pressure 90/53 L Pulse Oximetry 99 100 Oxygen Delivery Method 06/25/22 12:08 06/25/22 12:30 06/25/22 13:00 Temperature Pulse Rate 68 58 L 56 L Respiratory Rate Blood Pressure Pulse Oximetry 100 97 97 Oxygen Delivery Method 06/25/22 13:09 06/25/22 13:09 06/25/22 13:12 Temperature Pulse Rate 68 Respiratory Rate Blood Pressure 112/62 104/57 L Pulse Oximetry 100 Oxygen Delivery Method 06/25/22 13:12 06/25/22 13:14 06/25/22 13:16 Temperature Pulse Rate 68 56 L 58 L Respiratory Rate 9 L 21 Blood Pressure Pulse Oximetry 99 98 98 Oxygen Delivery Method 06/25/22 13:18 06/25/22 13:20 06/25/22 13:22 Temperature Pulse Rate 63 60 58 L Respiratory Rate 18 19 24 Blood Pressure Pulse Oximetry 99 99 99 Oxygen Delivery Method 06/25/22 13:24 06/25/22 13:34 06/25/22 13:36 Temperature Pulse Rate 60 64 63 Respiratory Rate 23 10 L Blood Pressure Pulse Oximetry 98 97 100 Oxygen Delivery Method 06/25/22 13:38 06/25/22 13:40 06/25/22 13:42 Temperature Pulse Rate 73 60 59 L Respiratory Rate 29 H 11 L 17 Blood Pressure Pulse Oximetry 95 99 98 Oxygen Delivery Method 06/25/22 13:44 06/25/22 13:46 06/25/22 13:48 Temperature Pulse Rate 57 L 58 L Respiratory Rate 17 18 Blood Pressure 89/47 L Pulse Oximetry 98 99 Oxygen Delivery Method 06/25/22 13:48 06/25/22 13:50 06/25/22 13:50 Temperature Pulse Rate 55 L 58 L Respiratory Rate 18 18 Blood Pressure 75/45 L Pulse Oximetry 99 99 Oxygen Delivery Method 06/25/22 13:52 06/25/22 13:52 06/25/22 13:54 Temperature Pulse Rate 57 L 56 L Respiratory Rate 19 18 Blood Pressure 87/53 L Pulse Oximetry 99 98 Oxygen Delivery Method 06/25/22 13:55 06/25/22 13:55 06/25/22 13:56 Temperature Pulse Rate 58 L 56 L Respiratory Rate 18 18 Blood Pressure 94/46 L Pulse Oximetry 100 99 Oxygen Delivery Method 06/25/22 13:58 06/25/22 13:58 06/25/22 14:00 Temperature Pulse Rate 62 Respiratory Rate 19 Blood Pressure 87/54 L 88/57 L Pulse Oximetry 100 Oxygen Delivery Method 06/25/22 14:00 06/25/22 14:02 06/25/22 14:04 Temperature Pulse Rate 65 69 Respiratory Rate 17 26 H Blood Pressure 57/36 L Pulse Oximetry 100 100 Oxygen Delivery Method 06/25/22 14:04 06/25/22 14:06 06/25/22 14:06 Temperature Pulse Rate 61 62 Respiratory Rate 20 19 Blood Pressure 96/55 L Pulse Oximetry 100 100 Oxygen Delivery Method 06/25/22 14:08 06/25/22 14:10 06/25/22 14:12 Temperature Pulse Rate 65 65 62 Respiratory Rate 23 17 20 Blood Pressure Pulse Oximetry 100 100 100 Oxygen Delivery Method 06/25/22 14:13 06/25/22 14:13 06/25/22 14:14 Temperature Pulse Rate 64 65 Respiratory Rate 17 17 Blood Pressure 98/49 L Pulse Oximetry 100 100 Oxygen Delivery Method 06/25/22 14:15 06/25/22 14:15 06/25/22 14:16 Temperature Pulse Rate 62 66 Respiratory Rate 17 18 Blood Pressure 96/52 L Pulse Oximetry 100 100 Oxygen Delivery Method 06/25/22 14:17 06/25/22 14:18 06/25/22 14:18 Temperature Pulse Rate 62 61 Respiratory Rate 16 16 Blood Pressure 95/51 L Pulse Oximetry 100 100 Oxygen Delivery Method 06/25/22 14:20 06/25/22 14:21 06/25/22 14:21 Temperature Pulse Rate 64 67 Respiratory Rate 19 24 Blood Pressure 100/58 L Pulse Oximetry 100 100 Oxygen Delivery Method 06/25/22 14:22 06/25/22 14:24 06/25/22 14:24 Temperature Pulse Rate 64 71 Respiratory Rate 16 20 Blood Pressure 105/57 L Pulse Oximetry 100 100 Oxygen Delivery Method 06/25/22 14:26 06/25/22 14:27 06/25/22 14:27 Temperature Pulse Rate 68 66 Respiratory Rate 16 22 Blood Pressure 89/55 L Pulse Oximetry 100 100 Oxygen Delivery Method Room Air 06/25/22 14:28 06/25/22 14:30 06/25/22 14:30 Temperature Pulse Rate 68 69 Respiratory Rate 20 Blood Pressure 103/60 Pulse Oximetry 100 100 Oxygen Delivery Method 06/25/22 14:32 06/25/22 14:34 06/25/22 14:34 Temperature Pulse Rate 69 66 Respiratory Rate 23 Blood Pressure 102/54 L Pulse Oximetry 100 Oxygen Delivery Method 06/25/22 14:36 06/25/22 14:38 06/25/22 14:40 Temperature Pulse Rate 65 68 Respiratory Rate 18 21 Blood Pressure 97/56 L Pulse Oximetry 100 100 Oxygen Delivery Method 06/25/22 14:40 06/25/22 14:42 06/25/22 14:44 Temperature Pulse Rate 65 64 69 Respiratory Rate 17 16 16 Blood Pressure Pulse Oximetry 100 100 100 Oxygen Delivery Method 06/25/22 14:45 06/25/22 14:45 06/25/22 14:46 Temperature Pulse Rate 66 64 Respiratory Rate 17 16 Blood Pressure 94/54 L Pulse Oximetry 100 100 Oxygen Delivery Method 06/25/22 14:48 06/25/22 14:50 06/25/22 14:50 Temperature Pulse Rate 65 70 Respiratory Rate 17 21 Blood Pressure 98/55 L Pulse Oximetry 100 100 Oxygen Delivery Method Room Air 06/25/22 14:52 06/25/22 14:54 06/25/22 14:55 Temperature Pulse Rate 73 76 Respiratory Rate 37 H 14 Blood Pressure 96/57 L Pulse Oximetry 100 100 Oxygen Delivery Method 06/25/22 14:55 06/25/22 14:56 06/25/22 14:58 Temperature Pulse Rate 73 76 76 Respiratory Rate 14 36 H 26 H Blood Pressure Pulse Oximetry 100 100 100 Oxygen Delivery Method 06/25/22 15:00 06/25/22 15:00 06/25/22 15:02 Temperature Pulse Rate 69 69 Respiratory Rate 16 20 Blood Pressure 103/59 L Pulse Oximetry 100 100 Oxygen Delivery Method 06/25/22 15:04 06/25/22 15:05 06/25/22 15:05 Temperature Pulse Rate 71 68 Respiratory Rate 19 20 Blood Pressure 105/61 Pulse Oximetry 100 100 Oxygen Delivery Method 06/25/22 15:06 06/25/22 15:08 06/25/22 15:10 Temperature Pulse Rate 69 66 Respiratory Rate 16 15 Blood Pressure 101/58 L Pulse Oximetry 100 100 Oxygen Delivery Method 06/25/22 15:10 06/25/22 15:12 06/25/22 15:14 Temperature Pulse Rate 66 67 67 Respiratory Rate 16 16 16 Blood Pressure Pulse Oximetry 100 100 100 Oxygen Delivery Method Room Air 06/25/22 15:15 06/25/22 15:15 06/25/22 15:16 Temperature Pulse Rate 74 72 Respiratory Rate 15 19 Blood Pressure 101/59 L Pulse Oximetry 100 100 Oxygen Delivery Method 06/25/22 15:18 06/25/22 15:20 06/25/22 15:21 Temperature Pulse Rate 73 73 Respiratory Rate 19 Blood Pressure 98/57 L Pulse Oximetry 100 100 Oxygen Delivery Method 06/25/22 15:21 06/25/22 15:22 06/25/22 15:24 Temperature Pulse Rate 65 66 64 Respiratory Rate 16 17 15 Blood Pressure Pulse Oximetry 100 100 100 Oxygen Delivery Method 06/25/22 15:25 06/25/22 15:25 06/25/22 15:26 Temperature Pulse Rate 64 65 Respiratory Rate 19 16 Blood Pressure 94/56 L Pulse Oximetry 100 100 Oxygen Delivery Method 06/25/22 15:28 06/25/22 15:30 06/25/22 15:30 Temperature Pulse Rate 63 64 Respiratory Rate 16 16 Blood Pressure 102/61 Pulse Oximetry 100 100 Oxygen Delivery Method 06/25/22 15:32 06/25/22 15:34 06/25/22 15:35 Temperature Pulse Rate 62 67 Respiratory Rate 16 16 Blood Pressure 101/60 Pulse Oximetry 100 100 Oxygen Delivery Method 06/25/22 15:35 06/25/22 15:36 06/25/22 15:38 Temperature Pulse Rate 56 L 59 L 63 Respiratory Rate 17 17 17 Blood Pressure Pulse Oximetry 100 100 100 Oxygen Delivery Method 06/25/22 15:40 06/25/22 15:40 06/25/22 15:42 Temperature Pulse Rate 55 L 70 Respiratory Rate 17 30 H Blood Pressure 107/59 L Pulse Oximetry 100 100 Oxygen Delivery Method 06/25/22 15:44 06/25/22 15:46 06/25/22 15:48 Temperature Pulse Rate 61 63 57 L Respiratory Rate 13 17 16 Blood Pressure Pulse Oximetry 100 100 100 Oxygen Delivery Method 06/25/22 15:50 06/25/22 15:50 06/25/22 15:52 Temperature Pulse Rate 62 56 L Respiratory Rate 16 16 Blood Pressure 97/57 L Pulse Oximetry 99 100 Oxygen Delivery Method 06/25/22 15:54 06/25/22 15:55 06/25/22 15:55 Temperature Pulse Rate 68 64 Respiratory Rate 22 17 Blood Pressure 97/58 L Pulse Oximetry 99 100 Oxygen Delivery Method 06/25/22 15:56 06/25/22 15:58 06/25/22 16:00 Temperature Pulse Rate 56 L 57 L Respiratory Rate 16 16 Blood Pressure 105/65 Pulse Oximetry 100 99 Oxygen Delivery Method 06/25/22 16:00 06/25/22 16:02 06/25/22 16:04 Temperature Pulse Rate 60 63 67 Respiratory Rate 17 17 25 H Blood Pressure Pulse Oximetry 99 99 99 Oxygen Delivery Method 06/25/22 16:05 06/25/22 16:05 06/25/22 16:06 Temperature Pulse Rate 65 63 Respiratory Rate 14 16 Blood Pressure 89/52 L Pulse Oximetry 100 100 Oxygen Delivery Method 06/25/22 16:08 06/25/22 16:10 06/25/22 16:11 Temperature Pulse Rate 65 63 Respiratory Rate 14 17 Blood Pressure 118/57 L Pulse Oximetry 100 100 Oxygen Delivery Method 06/25/22 16:11 06/25/22 16:12 06/25/22 16:14 Temperature Pulse Rate 62 70 77 Respiratory Rate 15 24 Blood Pressure Pulse Oximetry 99 100 99 Oxygen Delivery Method 06/25/22 16:15 06/25/22 16:15 06/25/22 16:16 Temperature Pulse Rate 74 68 Respiratory Rate 18 Blood Pressure 102/55 L Pulse Oximetry 100 99 Oxygen Delivery Method 06/25/22 16:18 06/25/22 16:20 06/25/22 16:20 Temperature Pulse Rate 66 62 Respiratory Rate 19 18 Blood Pressure 97/54 L Pulse Oximetry 99 100 Oxygen Delivery Method 06/25/22 16:22 06/25/22 16:24 06/25/22 16:25 Temperature Pulse Rate 65 65 Respiratory Rate 17 17 Blood Pressure 101/59 L Pulse Oximetry 100 100 Oxygen Delivery Method 06/25/22 16:25 06/25/22 16:26 06/25/22 16:28 Temperature Pulse Rate 64 63 65 Respiratory Rate 15 16 22 Blood Pressure Pulse Oximetry 100 100 100 Oxygen Delivery Method Oxygen Delivery Method Room Air Narrative Exam Narrative: GEN: no acute distress HEENT: moist mucous membranes, PERRL NECK: trachea midline, no JVD CV: regular rate and rhythm, no murmurs PULM: clear bilaterally ABD: soft, nontender, nondistended, no organomegaly EXT: warm and well perfused with no edema NEURO: awake, alert, oriented, no focal deficits Objective Labs 06/25/22 12:05 06/25/22 12:05 Labs: Laboratory Results - last 24 hr 06/25/22 06/25/22 06/25/22 12:05 12:05 12:05 WBC 9.9 RBC 4.07 Hgb 12.7 Hct 37.1 MCV 91.3 MCH 31.2 MCHC 34.2 RDW 13.0 Plt Count 227 Neut % (Auto) 66.7 Lymph % (Auto) 19.7 L Hendricks % (Auto) 8.2 Eos % (Auto) 4.4 H Baso % (Auto) 1.0 Neut # (Auto) 6600 Lymph # (Auto) 2000 Hendricks # (Auto) 800 Eos # (Auto) 400 Baso # (Auto) 100 Sodium 137 Potassium 4.1 Chloride 102 Carbon Dioxide 32 BUN 12 Creatinine 0.82 Estimated GFR > 60 BUN/Creatinine Ratio 14.6 Glucose 96 Lactate 0.7 Calcium 8.5 Total Bilirubin 0.4 AST 21 ALT 15 Alkaline Phosphatase 48 Total Creatine Kinase CK-MB (CK-2) CK-MB (CK-2) Rel Index Troponin I Total Protein 6.2 L Albumin 3.5 Globulin 2.7 Albumin/Globulin Ratio 1.3 Lipase 36 Procalcitonin Ur Bilirubin Confirm Urine RBC Urine WBC Ur Squamous Epith Cells Urine Bacteria Ur Culture Indicated? U Opiates 300ng/mL cut Ur Oxycodone Screen Urine Methadone Screen Ur Barbiturates Screen U Tricyclic Antidepress Ur Phencyclidine Scrn Ur Amphetamines Screen U Methamphetamines Scrn Ur MDMA Scrn (Ecstasy) U Benzodiazepines Scrn Urine Cocaine Screen U Marijuana (THC) Screen Ethyl Alcohol SARS-CoV-2 (PCR) Influenza A (RT-PCR) Influenza B (RT-PCR) RSV (PCR) 06/25/22 06/25/22 06/25/22 12:35 13:59 14:07 WBC RBC Hgb Hct MCV MCH MCHC RDW Plt Count Neut % (Auto) Lymph % (Auto) Hendricks % (Auto) Eos % (Auto) Baso % (Auto) Neut # (Auto) Lymph # (Auto) Hendricks # (Auto) Eos # (Auto) Baso # (Auto) Sodium Potassium Chloride Carbon Dioxide BUN Creatinine Estimated GFR BUN/Creatinine Ratio Glucose Lactate Calcium Total Bilirubin AST ALT Alkaline Phosphatase Total Creatine Kinase 59 CK-MB (CK-2) TNP CK-MB (CK-2) Rel Index TNP Troponin I < 0.012 Total Protein Albumin Globulin Albumin/Globulin Ratio Lipase Procalcitonin 0.03 Ur Bilirubin Confirm Urine RBC Urine WBC Ur Squamous Epith Cells Urine Bacteria Ur Culture Indicated? U Opiates 300ng/mL cut Ur Oxycodone Screen Urine Methadone Screen Ur Barbiturates Screen U Tricyclic Antidepress Ur Phencyclidine Scrn Ur Amphetamines Screen U Methamphetamines Scrn Ur MDMA Scrn (Ecstasy) U Benzodiazepines Scrn Urine Cocaine Screen U Marijuana (THC) Screen Ethyl Alcohol < 10 SARS-CoV-2 (PCR) Influenza A (RT-PCR) Influenza B (RT-PCR) RSV (PCR) 06/25/22 06/25/22 06/25/22 14:07 14:11 14:17 WBC RBC Hgb Hct MCV MCH MCHC RDW Plt Count Neut % (Auto) Lymph % (Auto) Hendricks % (Auto) Eos % (Auto) Baso % (Auto) Neut # (Auto) Lymph # (Auto) Hendricks # (Auto) Eos # (Auto) Baso # (Auto) Sodium Potassium Chloride Carbon Dioxide BUN Creatinine Estimated GFR BUN/Creatinine Ratio Glucose Lactate 0.9 Calcium Total Bilirubin AST ALT Alkaline Phosphatase Total Creatine Kinase CK-MB (CK-2) CK-MB (CK-2) Rel Index Troponin I Total Protein Albumin Globulin Albumin/Globulin Ratio Lipase Procalcitonin Ur Bilirubin Confirm Urine RBC Urine WBC Ur Squamous Epith Cells Urine Bacteria Ur Culture Indicated? U Opiates 300ng/mL cut Negative Ur Oxycodone Screen Negative Urine Methadone Screen Negative Ur Barbiturates Screen Negative U Tricyclic Antidepress Negative Ur Phencyclidine Scrn Negative Ur Amphetamines Screen Negative U Methamphetamines Scrn Negative Ur MDMA Scrn (Ecstasy) Negative U Benzodiazepines Scrn Negative Urine Cocaine Screen Negative U Marijuana (THC) Screen Positive H Ethyl Alcohol SARS-CoV-2 (PCR) Negative Influenza A (RT-PCR) Flu a negative Influenza B (RT-PCR) Flu b negative RSV (PCR) Negative 06/25/22 06/25/22 14:34 14:34 WBC RBC Hgb Hct MCV MCH MCHC RDW Plt Count Neut % (Auto) Lymph % (Auto) Hendricks % (Auto) Eos % (Auto) Baso % (Auto) Neut # (Auto) Lymph # (Auto) Hendricks # (Auto) Eos # (Auto) Baso # (Auto) Sodium Potassium Chloride Carbon Dioxide BUN Creatinine Estimated GFR BUN/Creatinine Ratio Glucose Lactate Calcium Total Bilirubin AST ALT Alkaline Phosphatase Total Creatine Kinase CK-MB (CK-2) CK-MB (CK-2) Rel Index Troponin I Total Protein Albumin Globulin Albumin/Globulin Ratio Lipase Procalcitonin Ur Bilirubin Confirm Negative Urine RBC 1-5/hpf Urine WBC 0-1/hpf Ur Squamous Epith Cells 1-5 /hpf Urine Bacteria None seen Ur Culture Indicated? Cult not indicated U Opiates 300ng/mL cut Ur Oxycodone Screen Urine Methadone Screen Ur Barbiturates Screen U Tricyclic Antidepress Ur Phencyclidine Scrn Ur Amphetamines Screen U Methamphetamines Scrn Ur MDMA Scrn (Ecstasy) U Benzodiazepines Scrn Urine Cocaine Screen U Marijuana (THC) Screen Ethyl Alcohol SARS-CoV-2 (PCR) Influenza A (RT-PCR) Influenza B (RT-PCR) RSV (PCR) Assessment & Plan Assessment & Plan narrative: # presumed hypovolemic shock, improving -BP's as low as 50 systolic in ED -patient without evidence of sepsis with neg procal however possible colitis -presumed hypovolemic due to recent diarrhea -check AM cortisol to assess adrenal glands, if low will perform ACTH stim test -obtain echo to rule out CHF -s/p 2L NS boluses in ED -BP now improved at 115/63 -continue NS 150cc/hr -monitor blood pressure closely # abdominal pain with mucusy stools -CT abdomen pelvis with prominent diverticulum and possible sigmoid colitis -likely diverticulitis -continue Zosyn # hypothyroidism -check TSH -continue home Synthroid # GERD -continue PPI Code status is full code. COVID negative. DVT prophylaxis with not. Proxy is brother Jaylan. I have reviewed home meds and used all available resources to reconcile the home meds. This patient will be admitted as observation and will require less than 2 midnights of hospital time to monitor hypovolemic shock.
[2022-06-25 16:53] LABS: NT-proBNP (BNP-Adult 18+) 79 pg/mL (<125)
[2022-06-25 17:15] LABS: TSH w/ Reflex to FT4 0.41 uIU/mL (0.47-4.68)
[2022-06-25] MEDS: PIPERACILLIN/TAZO 3.375 GM in SODIUM CHLORIDE 0.9% 100 ML IV (20:21)
[2022-06-25] MEDS: polyethylene glycoL 3350 17 GM POWD.PACK PO (20:22)
[2022-06-25] MEDS: SENNOSIDES 8.6 MG TABLET PO (20:22)
[2022-06-25 20:36] LABS: MRSA (Nasal) PCR Not Detected (Not Detect)
[2022-06-25] MEDS: ACETAMINOPHEN 325 MG TABLET 650 MG PO (20:50)
[2022-06-25] MEDS: MELATONIN 3 MG TABLET 6 MG PO (20:50)
[2022-06-26] VITALS (19 sets, daily range): BP systolic 114–115; BP diastolic 57–65; PULSE 51–70; RESP 17–26; TEMP 36.6–36.7; O2SAT 94–98
[2022-06-26] MEDS: PIPERACILLIN/TAZO 3.375 GM in SODIUM CHLORIDE 0.9% 100 ML IV ×2 (03:09→10:00)
[2022-06-26 05:02] LABS: Add Manual Diff / Slide Review NO; Basophils Absolute Auto 0 /uL (0-100); Basophils Percent Auto 0.2 % (0-2); Eosinophils Absolute Auto 500 /uL (0-450); Eosinophils Percent Auto 5.4 % (2-4); Hematocrit 34.4 % (36-46); Hemoglobin 11.6 g/dL (12.0-16.0); Lymphocytes Absolute Auto 1700 /uL (1100-4500); Lymphocytes Percent Auto 17.5 % (25-40); Mean Corpuscular HGB Conc 33.8 % (30-36); Mean Corpuscular Hemoglobin 31.2 PG (26-34); Mean Corpuscular Volume 92.1 fL (80-100); Monocytes Absolute Auto 800 /uL (0-900); Monocytes Percent Auto 8.6 % (3-14); Neutrophils Absolute Auto 6700 /uL (1500-7000); Neutrophils Percent Auto 68.3 % (50-75); Platelet Count 203 X10^3/uL (150-400); Red Blood Cell Count 3.73 X10^6/uL (4.0-5.2); Red Cell Distribution Width 12.9 % (11.6-14.8); White Blood Cell Count 9.8 X10^3/uL (4.5-11.0)
[2022-06-26 05:30] LABS: BUN Creatinine Ratio 14.3 (6-22); Blood Urea Nitrogen 10 mg/dL (7-17); Calcium 7.9 mg/dL (8.4-10.2); Carbon Dioxide 27 mmol/L (22-32); Chloride 111 mmol/L (98-107); Estimated Glomerular Filt Rate > 60 mL/min (>60); Glucose 83 mg/dL (80-110); HEMOLYSIS < 15 (0-50); Potassium 3.8 mmol/L (3.4-5.1); Sodium 140 mmol/L (137-145)
[2022-06-26 06:01] LABS: Cortisol AM (Before 10AM) 13.5 ug/dL (4.46-22.7)
[2022-06-26] MEDS: PANTOPRAZOLE DR 40 MG TABLET PO (06:02)
[2022-06-26] MEDS: LEVOTHYROXINE 112 MCG TABLET PO (06:02)
[2022-06-26] MEDS: LEVOTHYROXINE 100 MCG TABLET PO (06:02)
--- NOTE | 2022-06-26 06:46 | PC.NURSE ---
0600- Randhawa catheter removed at 0600 uop 475 clear straw colored urine. Zosyn infusion will complete by 0710. Patient can be heplocked at that time. Patient is passing gas as well as gelatinous discharge. Pain has been minimal given tylenol per order. BT are present, abdomen remains tender. No void as of now after randhawa removed. Will monitor.
[2022-06-26] MEDS: polyethylene glycoL 3350 17 GM POWD.PACK PO (08:34)
[2022-06-26] MEDS: SENNOSIDES 8.6 MG TABLET PO (08:36)
[2022-06-26] MEDS: CITALOPRAM 10 MG TABLET 20 MG PO (08:36)
--- NOTE | 2022-06-26 11:40 | P.PN_ITS ---
Subjective Subjective Interval history: Merlene Heard is a 67-year-old female with past medical history of TBI, h ypothyroidism, and OA who presented with abd pain and hypotension. She was recently diagnosed with diverticulitis as outpatient and has been taking Cipro and Flagyl.? She had some improvement in her abdominal pain but it continued and she described clear liquid stools when presenting.? No zeynep diarrhea.? Patient came to the ED for continued abdominal pain where CT scan showed sigmoid colitis.? While in the ED patient's blood pressure dropped to 57/36 and she received 2 L NS boluses.? Pressure improved mildly prior to admission. Exam Vital Signs (past 8 hours): - 06/26/22 03:47 06/26/22 03:42 06/26/22 03:42 Temperature 98.1 F Pulse Rate 66 65 Respiratory Rate 18 19 Blood Pressure 114/65 114/65 Pulse Oximetry 97 98 06/26/22 03:45 Temperature Pulse Rate 65 Respiratory Rate 18 Blood Pressure Pulse Oximetry 97 Oxygen Delivery Method Room Air Narrative Exam Narrative: GEN: no acute distress HEENT: moist mucous membranes, PERRL NECK: trachea midline, no JVD CV: regular rate and rhythm, no murmurs PULM: clear bilaterally ABD: soft, nontender, nondistended, no organomegaly EXT: warm and well perfused with no edema NEURO: awake, alert, oriented, no focal deficits Objective Labs 06/26/22 04:27 06/26/22 04:27 Labs: Laboratory Results - last 24 hr 06/25/22 06/25/22 06/25/22 12:05 12:05 12:05 WBC 9.9 RBC 4.07 Hgb 12.7 Hct 37.1 MCV 91.3 MCH 31.2 MCHC 34.2 RDW 13.0 Plt Count 227 Neut % (Auto) 66.7 Lymph % (Auto) 19.7 L [place] % (Auto) 8.2 Eos % (Auto) 4.4 H Baso % (Auto) 1.0 Neut # (Auto) 6600 Lymph # (Auto) 2000 [place] # (Auto) 800 Eos # (Auto) 400 Baso # (Auto) 100 Sodium 137 Potassium 4.1 Chloride 102 Carbon Dioxide 32 BUN 12 Creatinine 0.82 Estimated GFR > 60 BUN/Creatinine Ratio 14.6 Glucose 96 Lactate 0.7 Calcium 8.5 Magnesium Total Bilirubin 0.4 AST 21 ALT 15 Alkaline Phosphatase 48 Total Creatine Kinase CK-MB (CK-2) CK-MB (CK-2) Rel Index Troponin I NT-Pro-B Natriuret Pep Total Protein 6.2 L Albumin 3.5 Globulin 2.7 Albumin/Globulin Ratio 1.3 Lipase 36 Procalcitonin TSH Free T4 Cortisol AM Sample Ur Bilirubin Confirm Urine RBC Urine WBC Ur Squamous Epith Cells Urine Bacteria Ur Culture Indicated? Nasal Screen MRSA (PCR) U Opiates 300ng/mL cut Ur Oxycodone Screen Urine Methadone Screen Ur Barbiturates Screen U Tricyclic Antidepress Ur Phencyclidine Scrn Ur Amphetamines Screen U Methamphetamines Scrn Ur MDMA Scrn (Ecstasy) U Benzodiazepines Scrn Urine Cocaine Screen U Marijuana (THC) Screen Ethyl Alcohol SARS-CoV-2 (PCR) Influenza A (RT-PCR) Influenza B (RT-PCR) RSV (PCR) 06/25/22 06/25/22 06/25/22 12:05 12:05 12:05 WBC RBC Hgb Hct MCV MCH MCHC RDW Plt Count Neut % (Auto) Lymph % (Auto) [place] % (Auto) Eos % (Auto) Baso % (Auto) Neut # (Auto) Lymph # (Auto) [place] # (Auto) Eos # (Auto) Baso # (Auto) Sodium Potassium Chloride Carbon Dioxide BUN Creatinine Estimated GFR BUN/Creatinine Ratio Glucose Lactate Calcium Magnesium 2.0 Total Bilirubin AST ALT Alkaline Phosphatase Total Creatine Kinase CK-MB (CK-2) CK-MB (CK-2) Rel Index Troponin I NT-Pro-B Natriuret Pep 79 Total Protein Albumin Globulin Albumin/Globulin Ratio Lipase Procalcitonin TSH 0.41 L Free T4 1.30 Cortisol AM Sample Ur Bilirubin Confirm Urine RBC Urine WBC Ur Squamous Epith Cells Urine Bacteria Ur Culture Indicated? Nasal Screen MRSA (PCR) U Opiates 300ng/mL cut Ur Oxycodone Screen Urine Methadone Screen Ur Barbiturates Screen U Tricyclic Antidepress Ur Phencyclidine Scrn Ur Amphetamines Screen U Methamphetamines Scrn Ur MDMA Scrn (Ecstasy) U Benzodiazepines Scrn Urine Cocaine Screen U Marijuana (THC) Screen Ethyl Alcohol SARS-CoV-2 (PCR) Influenza A (RT-PCR) Influenza B (RT-PCR) RSV (PCR) 06/25/22 06/25/22 06/25/22 12:35 13:59 14:07 WBC RBC Hgb Hct MCV MCH MCHC RDW Plt Count Neut % (Auto) Lymph % (Auto) [place] % (Auto) Eos % (Auto) Baso % (Auto) Neut # (Auto) Lymph # (Auto) [place] # (Auto) Eos # (Auto) Baso # (Auto) Sodium Potassium Chloride Carbon Dioxide BUN Creatinine Estimated GFR BUN/Creatinine Ratio Glucose Lactate Calcium Magnesium Total Bilirubin AST ALT Alkaline Phosphatase Total Creatine Kinase 59 CK-MB (CK-2) TNP CK-MB (CK-2) Rel Index TNP Troponin I < 0.012 NT-Pro-B Natriuret Pep Total Protein Albumin Globulin Albumin/Globulin Ratio Lipase Procalcitonin 0.03 TSH Free T4 Cortisol AM Sample Ur Bilirubin Confirm Urine RBC Urine WBC Ur Squamous Epith Cells Urine Bacteria Ur Culture Indicated? Nasal Screen MRSA (PCR) U Opiates 300ng/mL cut Ur Oxycodone Screen Urine Methadone Screen Ur Barbiturates Screen U Tricyclic Antidepress Ur Phencyclidine Scrn Ur Amphetamines Screen U Methamphetamines Scrn Ur MDMA Scrn (Ecstasy) U Benzodiazepines Scrn Urine Cocaine Screen U Marijuana (THC) Screen Ethyl Alcohol < 10 SARS-CoV-2 (PCR) Influenza A (RT-PCR) Influenza B (RT-PCR) RSV (PCR) 06/25/22 06/25/22 06/25/22 14:07 14:11 14:17 WBC RBC Hgb Hct MCV MCH MCHC RDW Plt Count Neut % (Auto) Lymph % (Auto) [place] % (Auto) Eos % (Auto) Baso % (Auto) Neut # (Auto) Lymph # (Auto) [place] # (Auto) Eos # (Auto) Baso # (Auto) Sodium Potassium Chloride Carbon Dioxide BUN Creatinine Estimated GFR BUN/Creatinine Ratio Glucose Lactate 0.9 Calcium Magnesium Total Bilirubin AST ALT Alkaline Phosphatase Total Creatine Kinase CK-MB (CK-2) CK-MB (CK-2) Rel Index Troponin I NT-Pro-B Natriuret Pep Total Protein Albumin Globulin Albumin/Globulin Ratio Lipase Procalcitonin TSH Free T4 Cortisol AM Sample Ur Bilirubin Confirm Urine RBC Urine WBC Ur Squamous Epith Cells Urine Bacteria Ur Culture Indicated? Nasal Screen MRSA (PCR) U Opiates 300ng/mL cut Negative Ur Oxycodone Screen Negative Urine Methadone Screen Negative Ur Barbiturates Screen Negative U Tricyclic Antidepress Negative Ur Phencyclidine Scrn Negative Ur Amphetamines Screen Negative U Methamphetamines Scrn Negative Ur MDMA Scrn (Ecstasy) Negative U Benzodiazepines Scrn Negative Urine Cocaine Screen Negative U Marijuana (THC) Screen Positive H Ethyl Alcohol SARS-CoV-2 (PCR) Negative Influenza A (RT-PCR) Flu a negative Influenza B (RT-PCR) Flu b negative RSV (PCR) Negative 06/25/22 06/25/22 06/25/22 14:34 14:34 17:50 WBC RBC Hgb Hct MCV MCH MCHC RDW Plt Count Neut % (Auto) Lymph % (Auto) [place] % (Auto) Eos % (Auto) Baso % (Auto) Neut # (Auto) Lymph # (Auto) [place] # (Auto) Eos # (Auto) Baso # (Auto) Sodium Potassium Chloride Carbon Dioxide BUN Creatinine Estimated GFR BUN/Creatinine Ratio Glucose Lactate Calcium Magnesium Total Bilirubin AST ALT Alkaline Phosphatase Total Creatine Kinase CK-MB (CK-2) CK-MB (CK-2) Rel Index Troponin I NT-Pro-B Natriuret Pep Total Protein Albumin Globulin Albumin/Globulin Ratio Lipase Procalcitonin TSH Free T4 Cortisol AM Sample Ur Bilirubin Confirm Negative Urine RBC 1-5/hpf Urine WBC 0-1/hpf Ur Squamous Epith Cells 1-5 /hpf Urine Bacteria None seen Ur Culture Indicated? Cult not indicated Nasal Screen MRSA (PCR) Not detected U Opiates 300ng/mL cut Ur Oxycodone Screen Urine Methadone Screen Ur Barbiturates Screen U Tricyclic Antidepress Ur Phencyclidine Scrn Ur Amphetamines Screen U Methamphetamines Scrn Ur MDMA Scrn (Ecstasy) U Benzodiazepines Scrn Urine Cocaine Screen U Marijuana (THC) Screen Ethyl Alcohol SARS-CoV-2 (PCR) Influenza A (RT-PCR) Influenza B (RT-PCR) RSV (PCR) 06/26/22 06/26/22 04:27 04:27 WBC 9.8 RBC 3.73 L Hgb 11.6 L Hct 34.4 L MCV 92.1 MCH 31.2 MCHC 33.8 RDW 12.9 Plt Count 203 Neut % (Auto) 68.3 Lymph % (Auto) 17.5 L [place] % (Auto) 8.6 Eos % (Auto) 5.4 H Baso % (Auto) 0.2 Neut # (Auto) 6700 Lymph # (Auto) 1700 [place] # (Auto) 800 Eos # (Auto) 500 H Baso # (Auto) 0 Sodium 140 Potassium 3.8 Chloride 111 H Carbon Dioxide 27 BUN 10 Creatinine 0.70 Estimated GFR > 60 BUN/Creatinine Ratio 14.3 Glucose 83 Lactate Calcium 7.9 L Magnesium Total Bilirubin AST ALT Alkaline Phosphatase Total Creatine Kinase CK-MB (CK-2) CK-MB (CK-2) Rel Index Troponin I NT-Pro-B Natriuret Pep Total Protein Albumin Globulin Albumin/Globulin Ratio Lipase Procalcitonin TSH Free T4 Cortisol AM Sample 13.5 Ur Bilirubin Confirm Urine RBC Urine WBC Ur Squamous Epith Cells Urine Bacteria Ur Culture Indicated? Nasal Screen MRSA (PCR) U Opiates 300ng/mL cut Ur Oxycodone Screen Urine Methadone Screen Ur Barbiturates Screen U Tricyclic Antidepress Ur Phencyclidine Scrn Ur Amphetamines Screen U Methamphetamines Scrn Ur MDMA Scrn (Ecstasy) U Benzodiazepines Scrn Urine Cocaine Screen U Marijuana (THC) Screen Ethyl Alcohol SARS-CoV-2 (PCR) Influenza A (RT-PCR) Influenza B (RT-PCR) RSV (PCR) [facility] Medical History Concussion (2014) Easy bruisability H/O traumatic brain injury Hypothyroidism Hypothyroidism (10/20/10) Myalgia, unspecified site Ocular rosacea Osteoarthritis Surgical History History of tonsillectomy [place] teeth removed Family History Mother Congestive heart failure Father Aneurysm Alcoholism Social History household members: spouse Smoking Status: Smoker, status unknown alcohol intake: former Quality VTE Deep Vein Thrombosis/Pulmonary Embolism Present on Admission: No
--- NOTE | 2022-06-26 12:02 | PM.DS.1 ---
History of Present Illness History of Present Illness Date Patient Seen: 06/26/22 Chief complaint: Diverticulitis getting worse Narrative: Merlene Heard is a 67-year-old female with past medical history of TBI, hypothyroidism, and OA who presented with abd pain and hypotension. She was recently diagnosed with diverticulitis as outpatient and has been taking Cipro and Flagyl.? She had some improvement in her abdominal pain but it continued and she described clear liquid stools when presenting.? No zeynep diarrhea.? Patient came to the ED for continued abdominal pain where CT scan showed sigmoid colitis.? While in the ED patient's blood pressure dropped to 57/36 and she received 2 L NS boluses.? Pressure improved mildly prior to admission. Discharge Providers Provider Date of admission: 06/25/22 16:56 Discharge Date: 06/26/22 Primary care physician: JEFFERY Rojas Discharge provider: Syeda Melara MD Summary Hospital Course Discharge Diagnosis: Concern for hypovolemic shock Abdominal pain Mucusy stools Diverticulum Concern for sigmoid colitis/diverticulitis Hypothyroidism GERD Constipation Anxiety/depression Other diagnoses per history: Concussion (2014) Easy bruisability H/O traumatic brain injury Myalgia, unspecified site Ocular rosacea Osteoarthritis History of tonsillectomy [place] teeth removed Hospital Course: Patient was diagnosed as an outpatient with diverticulitis and started on Flagyl and Cipro. However symptoms became worse and became significantly watery/mucousy diarrhea. Patient presented to the ER and was placed on Zosyn intravenous antibiotics. Blood pressure systolic was consistently less than 100 and there was a concern for pending hypovolemic shock. Patient had IV fluid resuscitation with benefit to the patient. Blood pressure stabilized. After less than 24 hours, the patient has significantly decreased symptoms with beginning to have formed stools and less abdominal pain. Patient was discharged to resume the Flagyl and Cipro as an outpatient. Patient has constant problems with constipation as an outpatient and was discharged with MiraLax to be taken daily at noon and hold if loose stools in the morning. This will help prevent reoccurrence of diverticulitis. Status at Discharge Cognitive/behavioral status at discharge: at baseline, oriented Functional status at discharge: independent ambulation Overall status at discharge: patient is progressing back to baseline Time Spent with Patient Time spent: Greater than 30 minutes Exam Vital Signs (past 8 hours): Oxygen Delivery Method Room Air Narrative Exam Narrative: GEN: no acute distress HEENT: moist mucous membranes, PERRL NECK: trachea midline, no JVD CV: regular rate and rhythm, no murmurs PULM: clear bilaterally ABD: soft, nontender, nondistended, no organomegaly EXT: warm and well perfused with no edema NEURO: awake, alert, oriented, no focal deficits Objective Labs 06/26/22 04:27 06/26/22 04:27 Labs: Laboratory Results - last 24 hr 06/25/22 06/25/22 06/25/22 12:05 12:05 12:05 WBC 9.9 RBC 4.07 Hgb 12.7 Hct 37.1 MCV 91.3 MCH 31.2 MCHC 34.2 RDW 13.0 Plt Count 227 Neut % (Auto) 66.7 Lymph % (Auto) 19.7 L [place] % (Auto) 8.2 Eos % (Auto) 4.4 H Baso % (Auto) 1.0 Neut # (Auto) 6600 Lymph # (Auto) 2000 [place] # (Auto) 800 Eos # (Auto) 400 Baso # (Auto) 100 Sodium 137 Potassium 4.1 Chloride 102 Carbon Dioxide 32 BUN 12 Creatinine 0.82 Estimated GFR > 60 BUN/Creatinine Ratio 14.6 Glucose 96 Lactate 0.7 Calcium 8.5 Magnesium Total Bilirubin 0.4 AST 21 ALT 15 Alkaline Phosphatase 48 Total Creatine Kinase CK-MB (CK-2) CK-MB (CK-2) Rel Index Troponin I NT-Pro-B Natriuret Pep Total Protein 6.2 L Albumin 3.5 Globulin 2.7 Albumin/Globulin Ratio 1.3 Lipase 36 Procalcitonin TSH Free T4 Cortisol AM Sample Ur Bilirubin Confirm Urine RBC Urine WBC Ur Squamous Epith Cells Urine Bacteria Ur Culture Indicated? Nasal Screen MRSA (PCR) U Opiates 300ng/mL cut Ur Oxycodone Screen Urine Methadone Screen Ur Barbiturates Screen U Tricyclic Antidepress Ur Phencyclidine Scrn Ur Amphetamines Screen U Methamphetamines Scrn Ur MDMA Scrn (Ecstasy) U Benzodiazepines Scrn Urine Cocaine Screen U Marijuana (THC) Screen Ethyl Alcohol SARS-CoV-2 (PCR) Influenza A (RT-PCR) Influenza B (RT-PCR) RSV (PCR) 06/25/22 06/25/22 06/25/22 12:05 12:05 12:05 WBC RBC Hgb Hct MCV MCH MCHC RDW Plt Count Neut % (Auto) Lymph % (Auto) [place] % (Auto) Eos % (Auto) Baso % (Auto) Neut # (Auto) Lymph # (Auto) [place] # (Auto) Eos # (Auto) Baso # (Auto) Sodium Potassium Chloride Carbon Dioxide BUN Creatinine Estimated GFR BUN/Creatinine Ratio Glucose Lactate Calcium Magnesium 2.0 Total Bilirubin AST ALT Alkaline Phosphatase Total Creatine Kinase CK-MB (CK-2) CK-MB (CK-2) Rel Index Troponin I NT-Pro-B Natriuret Pep 79 Total Protein Albumin Globulin Albumin/Globulin Ratio Lipase Procalcitonin TSH 0.41 L Free T4 1.30 Cortisol AM Sample Ur Bilirubin Confirm Urine RBC Urine WBC Ur Squamous Epith Cells Urine Bacteria Ur Culture Indicated? Nasal Screen MRSA (PCR) U Opiates 300ng/mL cut Ur Oxycodone Screen Urine Methadone Screen Ur Barbiturates Screen U Tricyclic Antidepress Ur Phencyclidine Scrn Ur Amphetamines Screen U Methamphetamines Scrn Ur MDMA Scrn (Ecstasy) U Benzodiazepines Scrn Urine Cocaine Screen U Marijuana (THC) Screen Ethyl Alcohol SARS-CoV-2 (PCR) Influenza A (RT-PCR) Influenza B (RT-PCR) RSV (PCR) 06/25/22 06/25/22 06/25/22 12:35 13:59 14:07 WBC RBC Hgb Hct MCV MCH MCHC RDW Plt Count Neut % (Auto) Lymph % (Auto) [place] % (Auto) Eos % (Auto) Baso % (Auto) Neut # (Auto) Lymph # (Auto) [place] # (Auto) Eos # (Auto) Baso # (Auto) Sodium Potassium Chloride Carbon Dioxide BUN Creatinine Estimated GFR BUN/Creatinine Ratio Glucose Lactate Calcium Magnesium Total Bilirubin AST ALT Alkaline Phosphatase Total Creatine Kinase 59 CK-MB (CK-2) TNP CK-MB (CK-2) Rel Index TNP Troponin I < 0.012 NT-Pro-B Natriuret Pep Total Protein Albumin Globulin Albumin/Globulin Ratio Lipase Procalcitonin 0.03 TSH Free T4 Cortisol AM Sample Ur Bilirubin Confirm Urine RBC Urine WBC Ur Squamous Epith Cells Urine Bacteria Ur Culture Indicated? Nasal Screen MRSA (PCR) U Opiates 300ng/mL cut Ur Oxycodone Screen Urine Methadone Screen Ur Barbiturates Screen U Tricyclic Antidepress Ur Phencyclidine Scrn Ur Amphetamines Screen U Methamphetamines Scrn Ur MDMA Scrn (Ecstasy) U Benzodiazepines Scrn Urine Cocaine Screen U Marijuana (THC) Screen Ethyl Alcohol < 10 SARS-CoV-2 (PCR) Influenza A (RT-PCR) Influenza B (RT-PCR) RSV (PCR) 06/25/22 06/25/22 06/25/22 14:07 14:11 14:17 WBC RBC Hgb Hct MCV MCH MCHC RDW Plt Count Neut % (Auto) Lymph % (Auto) [place] % (Auto) Eos % (Auto) Baso % (Auto) Neut # (Auto) Lymph # (Auto) [place] # (Auto) Eos # (Auto) Baso # (Auto) Sodium Potassium Chloride Carbon Dioxide BUN Creatinine Estimated GFR BUN/Creatinine Ratio Glucose Lactate 0.9 Calcium Magnesium Total Bilirubin AST ALT Alkaline Phosphatase Total Creatine Kinase CK-MB (CK-2) CK-MB (CK-2) Rel Index Troponin I NT-Pro-B Natriuret Pep Total Protein Albumin Globulin Albumin/Globulin Ratio Lipase Procalcitonin TSH Free T4 Cortisol AM Sample Ur Bilirubin Confirm Urine RBC Urine WBC Ur Squamous Epith Cells Urine Bacteria Ur Culture Indicated? Nasal Screen MRSA (PCR) U Opiates 300ng/mL cut Negative Ur Oxycodone Screen Negative Urine Methadone Screen Negative Ur Barbiturates Screen Negative U Tricyclic Antidepress Negative Ur Phencyclidine Scrn Negative Ur Amphetamines Screen Negative U Methamphetamines Scrn Negative Ur MDMA Scrn (Ecstasy) Negative U Benzodiazepines Scrn Negative Urine Cocaine Screen Negative U Marijuana (THC) Screen Positive H Ethyl Alcohol SARS-CoV-2 (PCR) Negative Influenza A (RT-PCR) Flu a negative Influenza B (RT-PCR) Flu b negative RSV (PCR) Negative 06/25/22 06/25/22 06/25/22 14:34 14:34 17:50 WBC RBC Hgb Hct MCV MCH MCHC RDW Plt Count Neut % (Auto) Lymph % (Auto) [place] % (Auto) Eos % (Auto) Baso % (Auto) Neut # (Auto) Lymph # (Auto) [place] # (Auto) Eos # (Auto) Baso # (Auto) Sodium Potassium Chloride Carbon Dioxide BUN Creatinine Estimated GFR BUN/Creatinine Ratio Glucose Lactate Calcium Magnesium Total Bilirubin AST ALT Alkaline Phosphatase Total Creatine Kinase CK-MB (CK-2) CK-MB (CK-2) Rel Index Troponin I NT-Pro-B Natriuret Pep Total Protein Albumin Globulin Albumin/Globulin Ratio Lipase Procalcitonin TSH Free T4 Cortisol AM Sample Ur Bilirubin Confirm Negative Urine RBC 1-5/hpf Urine WBC 0-1/hpf Ur Squamous Epith Cells 1-5 /hpf Urine Bacteria None seen Ur Culture Indicated? Cult not indicated Nasal Screen MRSA (PCR) Not detected U Opiates 300ng/mL cut Ur Oxycodone Screen Urine Methadone Screen Ur Barbiturates Screen U Tricyclic Antidepress Ur Phencyclidine Scrn Ur Amphetamines Screen U Methamphetamines Scrn Ur MDMA Scrn (Ecstasy) U Benzodiazepines Scrn Urine Cocaine Screen U Marijuana (THC) Screen Ethyl Alcohol SARS-CoV-2 (PCR) Influenza A (RT-PCR) Influenza B (RT-PCR) RSV (PCR) 06/26/22 06/26/22 04:27 04:27 WBC 9.8 RBC 3.73 L Hgb 11.6 L Hct 34.4 L MCV 92.1 MCH 31.2 MCHC 33.8 RDW 12.9 Plt Count 203 Neut % (Auto) 68.3 Lymph % (Auto) 17.5 L [place] % (Auto) 8.6 Eos % (Auto) 5.4 H Baso % (Auto) 0.2 Neut # (Auto) 6700 Lymph # (Auto) 1700 [place] # (Auto) 800 Eos # (Auto) 500 H Baso # (Auto) 0 Sodium 140 Potassium 3.8 Chloride 111 H Carbon Dioxide 27 BUN 10 Creatinine 0.70 Estimated GFR > 60 BUN/Creatinine Ratio 14.3 Glucose 83 Lactate Calcium 7.9 L Magnesium Total Bilirubin AST ALT Alkaline Phosphatase Total Creatine Kinase CK-MB (CK-2) CK-MB (CK-2) Rel Index Troponin I NT-Pro-B Natriuret Pep Total Protein Albumin Globulin Albumin/Globulin Ratio Lipase Procalcitonin TSH Free T4 Cortisol AM Sample 13.5 Ur Bilirubin Confirm Urine RBC Urine WBC Ur Squamous Epith Cells Urine Bacteria Ur Culture Indicated? Nasal Screen MRSA (PCR) U Opiates 300ng/mL cut Ur Oxycodone Screen Urine Methadone Screen Ur Barbiturates Screen U Tricyclic Antidepress Ur Phencyclidine Scrn Ur Amphetamines Screen U Methamphetamines Scrn Ur MDMA Scrn (Ecstasy) U Benzodiazepines Scrn Urine Cocaine Screen U Marijuana (THC) Screen Ethyl Alcohol SARS-CoV-2 (PCR) Influenza A (RT-PCR) Influenza B (RT-PCR) RSV (PCR) [facility] Medical History Concussion (2014) Easy bruisability H/O traumatic brain injury Hypothyroidism Hypothyroidism (10/20/10) Myalgia, unspecified site Ocular rosacea Osteoarthritis Surgical History History of tonsillectomy [place] teeth removed Family History Mother Congestive heart failure Father Aneurysm Alcoholism Social History household members: spouse Smoking Status: Smoker, status unknown alcohol intake: former Discharge Plan Discharge Plan Patient Disposition: Home Discharge orders & Medications Prescriptions: New pantoprazole 40 mg Tablet,Delayed Release (Dr/Ec) 40 mg PO 0600 Qty: 30 0RF polyethylene glycol 3350 17 gram Powder In Packet 17 gm PO DAILY PRN (Reason: Constipation) Qty: 30 0RF Continued doxycycline hyclate 50 mg tablet 50 mg PO BID fluorometholone acetate 0.1 % Drops,Suspension 1 drp OPHTHALMIC (EYE) DAILY levothyroxine 112 mcg tablet 112 mcg PO DAILY citalopram 20 mg tablet 20 mg PO DAILY Follow up/Referrals: Aye Schwarz ARNP [Primary Care Provider] - Visit Report/Discharge Packet Stand Alone Forms: Patient Portal/API, Stroke Signs & Symptoms Discharge Data Primary Care Provider: Aye Schwarz Attending Provider: Kareem Aponte Admit Date/Time: 06/25/22 16:56 Quality VTE Deep Vein Thrombosis/Pulmonary Embolism Present on Admission: No
--- NOTE | 2022-06-26 12:16 | CM.DANOTE ---
Initial Discharge Planning Assessment Note: Case reviewed, met with patient. Introduced self and role. Payer: [facility] Medical and self pay PCP: yAe Schwarz 67 year old female admitted yesterday for c/o of abdominal pain. She had been recently diagnosed with diverticulitis CT shows diverticulum and possible sigmoid colitis. She had bm today. She has discharge orders. Patient lives with spouse locally and is independent in ADLs. Plan: DC Home today, spouse to transport. KIMBERLY Discharge Planning/Care Management CM Discharge Assessment Start: 06/26/22 12:06 Freq: Status: Active Protocol: Document 06/26/22 12:06 (Rec: 06/26/22 12:16 [id number]) Discharge Planning Assessment Assigned [employer] Melani Miles RN/ILANP Advance Directives? No History Provided By Patient,Medical Record Prior Living Arrangements House Household Members spouse Type of transporation used prior to Drives own vehicle admit Independent with ADL's Yes Is patient alert and oriented? Yes Caregiver for Another No Patient/Family Preference OP PT Therapy Discharge Plan Home Transportation Arrangement Family/significant other can provide transport. Referrals Initiated None needed Review Status In Process Next Review Type Continued Stay Review
[2022-06-26 13:39] LABS: Thyroid Stimulating Hormone 1.61 uIU/mL (0.47-4.68)
== END 2022-06-26 12:45 | disposition home or self-care (01) ==
LOC: ED 16:19 → AC 16:56 → ICU 17:09
PROVIDERS: Neuromusculoskeletal Medicine, Sports Medicine; Admitting Provider Student in an Organized Health Care Education/Training Program; Emergency Provider Emergency Medicine; PCP Family Medicine; Referring Provider Emergency Medicine; Visit Provider Student in an Organized Health Care Education/Training Program
DX: R10.9 Unspecified abdominal pain (principal); I95.9 Hypotension, unspecified; K57.92 Diverticulitis of intestine, part unspecified, without perforation or abscess without bleeding; E86.0 Dehydration; K59.00 Constipation, unspecified; Z20.822 Contact with and (suspected) exposure to COVID-19
CPT/HCPCS: 0241U; 36415; 74177; 80048; 80053; 80305; 80320; 81003; 81015; 82533; 82550; 83605; 83690; 83735; 83880; 84145; 84439; 84443; 84484; 85025; 87040; 87797; 93005; 96361; 96365; 96366; 96375; 99284; G0378; J1885; J2543; Q9967

== ENCOUNTER → 2022-07-22 09:30 | Outpatient (CLI) | payer OTHER, SELFPAY ==
[2022-06-25 17:59] VITALS: BMI 29.2
--- NOTE | 2022-07-22 09:31 | DI.RAD.S_ITS ---
PROCEDURE: XR SHOULDER RT MIN 2V INDICATIONS: Shoulder pain, suspect AC joint arthritis TECHNIQUE: 3 views of the shoulder were acquired. COMPARISON: [facility], , SHOULDER MINIMUM 2VIEW RIGHT, 04/28/2017, 13:38. FINDINGS: Bones: No fractures or dislocations. No suspicious bony lesions. Visualized ribs appear intact. Periarticular osteophyte formation at the acromioclavicular and glenohumeral joints. Soft tissues: No suspicious soft tissue calcifications. IMPRESSION: Osteoarthritis. No acute fracture. No osseous lesion. If symptoms and/or clinical suspicion for pathology persist, further assessment with repeat, or advanced imaging (e.g., CT, MRI, or bone scan) may be helpful for further assessment. Dictated by: Patti Ivan M.D. on 07/22/2022 at 11:56 Transcribed by: DEIDRA on 07/22/2022 at 11:57 Approved by: Patti Ivan M.D. on 07/22/2022 at 11:57
== END ==
PROVIDERS: PCP Student in an Organized Health Care Education/Training Program; Referring Provider Student in an Organized Health Care Education/Training Program; Visit Provider Student in an Organized Health Care Education/Training Program
DX: M19.011 Primary osteoarthritis, right shoulder (principal); M25.511 Pain in right shoulder
CPT/HCPCS: 73030

== ENCOUNTER → 2022-07-23 08:33 | Outpatient (CLI) | payer OTHER, SELFPAY ==
[2022-06-25 17:59] VITALS: BMI 29.2
--- NOTE | 2022-07-23 08:34 | DI.MG.S_ITS ---
BILATERAL DIGITAL SCREENING MAMMOGRAM 3D/2D WITH CAD: 07/23/2022 CLINICAL: Routine screening. Comparison is made to exams dated: 03/09/2021 mammogram, 08/30/2018 mammogram, and 03/11/2017 mammogram - . There are scattered areas of fibroglandular density in both breasts (category b / 25%-50% glandular tissue). Current study was also evaluated with a Computer Aided Detection (CAD) system. No significant masses, calcifications, or other findings are seen in either breast. There has been no significant interval change. IMPRESSION: NEGATIVE There is no mammographic evidence of malignancy. A 1 year screening mammogram is recommended. Based on the Tyrer Cuzick model (a risk assessment model) the patient's lifetime risk is 6.8% and her 10 year risk is 3.3%. According to the ACR, ACS, and NCCN guidelines, an annual breast MRI exam along with mammogram is recommended if the patient's lifetime risk is 20% or greater. This exam was interpreted at Station ID: [id number]. NOTE: For mammograms, a report in lay terms will be sent to the patient. Approximately 15% of breast malignancies will not be visualized mammographically. In the management of a palpable breast mass, a negative mammogram must not discourage biopsy of a clinically suspicious lesion. Electronically Signed By: Trena naik/crow:07/23/2022 10:16:42 letter sent: Normal Exam ACR BI-RADS Category 1: Negative [id number]
--- NOTE | 2022-07-23 09:16 | DI.DEXA.S_ITS ---
Bone Density Report Name: EDIN MARIE Age: 67 Sex: Female Ethnicity: White Date of : 1955 Indication: postmenopausal; screening for osteoporosis; Referring Provider: RYAN FLORES Study: Bone densitometry was performed. Exam Date: July 23, 2022 Accession number: [id number] Bone Density: Region BMD T-score Z-score Classification AP Spine(L1-L4) 0.922 -1.1 0.6 Osteopenia Femoral Neck (Right) 0.707 -1.3 0.2 Osteopenia Total Hip (Right) 0.913 -0.2 1.0 Normal Total Forearm (Left) 0.558 -0.4 1.2 Normal 1/3 Forearm (Left) 0.624 -1.2 0.5 Osteopenia UD Forearm (Left) 0.459 0.3 1.5 Normal World Health Organization criteria for BMD impression classify patients as: Normal (T-score at or above -1.0), Osteopenia (T-score between -1.0 and -2.5), or Osteoporosis (T-score at or below -2.5). 10-year Fracture Risk(1): Major Osteoporotic Fracture 8.4% Hip Fracture 0.8% Reported Risk Factors: [place] (), Neck BMD=0.707, BMI=27.5 (1) FRAX(R) Version 3.08. Fracture probability calculated for an untreated patient. Fracture probability may be lower if the patient has received treatment. Previous Exams: -- Region Exam Age BMD T-score BMD Change BMD Change Date g/cm2 vs Baseline vs Previous -- AP Spine (L1-L4) 07/23/2022 67 0.922 -1.1 -0.151 (-14.1%)# -0.151 (-14.1%)# 02/21/2008 52 1.073 0.2 Total Hip(Right) 07/23/2022 67 0.913 -0.2 -0.125 (-12.0%)# -0.125 (-12.0%)# 02/21/2008 52 1.037 0.8 -- *Denotes significance at 95% confidence level, LSC for AP Spine = 0.022 g/cm2, LSC for Total Hip = 0.027 g/cm2 # Denotes dissimilar scan types or analysis methods Impression: The patient has low bone mass, based on the Right Femoral Neck T-score. The patient has an estimated ten-year risk of hip fracture of 0.8% and an estimated ten-year risk of major fracture of 8.4%, based on the WHO FRAX algorithm. No significant bone loss was observed. Discussion: BONE DENSITY IS LOW AT ONE OR MORE SKELETAL SITES. This patient's lowest T-score is low at one or more skeletal sites. It meets the World Health Organization's (WHO) criteria for ?low bone mass? (T-score between -1.0 and -2.5). The patient's 10-year risk of fracture as calculated by FRAX is less than the threshold where pharmacological therapy is recommended by the National Osteoporosis Foundation (NOF). However, all treatment decisions require clinical judgment and consideration of individual patient factors, including patient preferences, comorbidities, previous drug use, risk factors not captured in the FRAX model (e.g., frailty, falls, vitamin D deficiency, increased bone turnover, interval significant decline in bone density) and possible under or overestimation of fracture risk by FRAX. The patient should follow a healthful lifestyle (good nutrition with adequate calcium and vitamin D, and appropriate weight-bearing exercise). Follow-Up: Consider repeating this study in 2 to 3 years to reassess this patient's status, or sooner if there is some new clinical indication. Reported by: TRISH PAYAN MD on 07/23/2022 9:26:00 AM.
== END ==
PROVIDERS: PCP Student in an Organized Health Care Education/Training Program; Referring Provider Student in an Organized Health Care Education/Training Program; Visit Provider Student in an Organized Health Care Education/Training Program
DX: Z12.31 Encounter for screening mammogram for malignant neoplasm of breast (principal); Z13.820 Encounter for screening for osteoporosis; M85.851 Other specified disorders of bone density and structure, right thigh; Z78.0 Asymptomatic menopausal state
CPT/HCPCS: 77063; 77067; 77080

== ENCOUNTER → 2022-07-28 07:48 | Outpatient (CLI) | payer OTHER, SELFPAY ==
[2022-06-25 17:59] VITALS: BMI 29.2
--- NOTE | 2022-07-28 07:48 | DI.NM.S_ITS ---
PROCEDURE: NM GASTRIC EMPTYING STUDY RADIOPHARMACEUTICAL: 1.0 mCi Tc-99m sulfur colloid in an egg sandwich. INDICATIONS: Chronic nausea, suspected gastroparesis TECHNIQUE: A Tc-99m labeled sulfur colloid labeled egg sandwich or oatmeal was served to the patient. Anterior and posterior planar images of the abdomen were obtained at 0 minutes and 30 minutes, then at hourly intervals up to 4 hours. The patient was upright and ambulating during the interval. COMPARISON: None. FINDINGS: The stomach has normal size, morphology, and position. There is normal emptying of solid gastric contents from the stomach by visual inspection. No gastroesophageal reflux is visualized. The percentage of tracer retained at specific time points are as follows: Time point Percent gastric retention Normal range 30 minutes 97% 70% or more 1 hour 69% 30% to 90% 2 hours 20% 60% or less 3 hours 2% 30% or less 4 hours - 10% or less IMPRESSION: Normal gastric emptying study. Dictated by: Garrick Dorado M.D. on 07/28/2022 at 12:02 Approved by: Garrick Dorado M.D. on 07/28/2022 at 12:03
== END ==
PROVIDERS: PCP Student in an Organized Health Care Education/Training Program; Referring Provider Student in an Organized Health Care Education/Training Program; Visit Provider Student in an Organized Health Care Education/Training Program
DX: R11.0 Nausea (principal)
CPT/HCPCS: 78264; A9541

== ENCOUNTER → 2023-07-12 08:27 | Outpatient (CLI) | payer OTHER, SELFPAY ==
[2022-06-25 17:59] VITALS: BMI 29.2
[2023-07-12 09:33] LABS: Add Manual Diff / Slide Review NO; Basophils Absolute Auto 0 /uL (0-100); Basophils Percent Auto 0.6 % (0-2); Eosinophils Absolute Auto 400 /uL (0-450); Hematocrit 38.6 % (36-46); Hemoglobin 13.1 g/dL (12.0-16.0); Lymphocytes Absolute Auto 1900 /uL (1100-4500); Lymphocytes Percent Auto 30.6 % (25-40); Mean Corpuscular HGB Conc 33.8 % (30-36); Mean Corpuscular Hemoglobin 31.1 PG (26-34); Mean Corpuscular Volume 92.1 fL (80-100); Monocytes Absolute Auto 500 /uL (0-900); Monocytes Percent Auto 7.4 % (3-14); Neutrophils Absolute Auto 3500 /uL (1500-7000); Neutrophils Percent Auto 55.4 % (50-75); Platelet Count 271 X10^3/uL (150-400); Red Cell Distribution Width 13.3 % (11.6-14.8); White Blood Cell Count 6.3 X10^3/uL (4.5-11.0)
[2023-07-12 10:22] LABS: Alanine Aminotransferase 20 IU/L (<35); Albumin 3.9 g/dL (3.5-5.0); Albumin Globulin Ratio 1.6 (1.0-2.8); Alkaline Phosphatase 49 U/L (38-126); Aspartate Aminotransferase 32 IU/L (14-36); BUN Creatinine Ratio 20.7 (6-22); Bilirubin Total 0.4 mg/dL (0.2-1.3); Blood Urea Nitrogen 18 mg/dL (7-17); Carbon Dioxide 31 mmol/L (22-32); Chloride 109 mmol/L (98-107); Cholesterol 223 mg/dL (140-199); Estimated Glomerular Filt Rate > 60 mL/min (>60); Globulin 2.5 g/dL (1.7-4.1); Glucose 92 mg/dL (80-110); HDL Cholesterol 57 mg/dL (40-60); HEMOLYSIS < 15 (0-50); LDL Cholesterol Calculated 144 mg/dL (<100); Potassium 4.6 mmol/L (3.4-5.1); Sodium 140 mmol/L (137-145); Total Protein 6.4 g/dL (6.3-8.2); Triglycerides 108 mg/dL (35-150)
[2023-07-12 10:45] LABS: TSH w/ Reflex to FT4 3.47 uIU/mL (0.47-4.68)
[2023-07-12 11:29] LABS: Hep C Virus Ab w/Reflex Quant NEGATIVE s/c (NEGATIVE)
== END ==
PROVIDERS: PCP Student in an Organized Health Care Education/Training Program; Referring Provider Family Medicine; Visit Provider Family Medicine
DX: Z13.9 Encounter for screening, unspecified (principal); Z11.59 Encounter for screening for other viral diseases; E03.9 Hypothyroidism, unspecified; E87.8 Other disorders of electrolyte and fluid balance, not elsewhere classified; E78.2 Mixed hyperlipidemia; D64.9 Anemia, unspecified
CPT/HCPCS: 36415; 80053; 80061; 84443; 85025; 86803

== ENCOUNTER → 2024-06-05 10:06 | Outpatient (CLI) | payer MEDICARE, OTHER, SELFPAY ==
[2024-05-11 13:03] VITALS: BMI 29.2
[2024-06-05 10:43] LABS: Add Manual Diff / Slide Review NO; Basophils Absolute Auto 0 /uL (0-100); Basophils Percent Auto 0.6 % (0-2); Eosinophils Absolute Auto 300 /uL (0-450); Eosinophils Percent Auto 4.2 % (2-4); Hematocrit 40.2 % (36-46); Hemoglobin 13.3 g/dL (12.0-16.0); Lymphocytes Absolute Auto 2200 /uL (1100-4500); Lymphocytes Percent Auto 32.7 % (25-40); Mean Corpuscular Hemoglobin 30.7 PG (26-34); Mean Corpuscular Volume 93.2 fL (80-100); Monocytes Absolute Auto 500 /uL (0-900); Monocytes Percent Auto 7.5 % (3-14); Neutrophils Absolute Auto 3700 /uL (1500-7000); Platelet Count 279 X10^3/uL (150-400); Red Blood Cell Count 4.32 X10^6/uL (4.0-5.2); Red Cell Distribution Width 13.8 % (11.6-14.8); White Blood Cell Count 6.7 X10^3/uL (4.5-11.0)
[2024-06-05 10:59] LABS: HEMOLYSIS < 15 (0-50); Iron 93 ug/dL (37-170)
[2024-06-05 11:00] LABS: Alanine Aminotransferase 23 IU/L (<35); Albumin 4.1 g/dL (3.5-5.0); Albumin Globulin Ratio 1.8 (1.0-2.8); Alkaline Phosphatase 47 U/L (38-126); Aspartate Aminotransferase 36 IU/L (14-36); BUN Creatinine Ratio 25.8 (6-22); Bilirubin Total 0.6 mg/dL (0.2-1.3); Blood Urea Nitrogen 24 mg/dL (7-17); Calcium 9.5 mg/dL (8.4-10.2); Carbon Dioxide 30 mmol/L (22-32); Chloride 103 mmol/L (98-107); Estimated Glomerular Filt Rate > 60 mL/min (>60); Globulin 2.3 g/dL (1.7-4.1); Glucose 87 mg/dL (80-110); HEMOLYSIS < 15 (0-50); Potassium 4.5 mmol/L (3.4-5.1); Sodium 137 mmol/L (137-145); Total Protein 6.4 g/dL (6.3-8.2)
[2024-06-05 11:09] LABS: Percent Iron Saturation 30 % (15-50); Total Iron Binding Capacity 311 ug/dL (265-497); Transferrin 267 mg/dL (206-381)
[2024-06-05 11:31] LABS: TSH w/ Reflex to FT4 5.57 uIU/mL (0.47-4.68)
[2024-06-05 11:34] LABS: Ferritin 37 ng/mL (11-264)
[2024-06-05 11:55] LABS: Free T4, Direct Thyroxine 0.95 ng/dL (0.78-2.19)
== END ==
PROVIDERS: PCP Student in an Organized Health Care Education/Training Program; Referring Provider Student in an Organized Health Care Education/Training Program; Visit Provider Student in an Organized Health Care Education/Training Program
DX: R53.83 Other fatigue (principal); L65.9 Nonscarring hair loss, unspecified
CPT/HCPCS: 36415; 80053; 82728; 83540; 83550; 84439; 84443; 85025

== ENCOUNTER → 2024-08-15 15:36 | Outpatient (CLI) | payer MEDICARE, OTHER, SELFPAY ==
[2024-05-11 13:03] VITALS: BMI 29.2
--- NOTE | 2024-08-15 15:39 | DI.MG.S_ITS ---
MM screening mammo BI: 08/15/2024. BI-RADS: 1 CLINICAL: 69-year old female for bilateral screening mammogram. Tyrer-Cuzick lifetime risk of 5.0%. No personal or first-degree family history of breast cancer. PRIOR EXAMS 07/23/2022, 03/09/2021, 08/30/2018, 03/11/2017, 03/27/2015. MAMMOGRAPHY TECHNIQUE: 2D and 3D (tomosynthesis) digital mammographic views obtained, with additional images as needed for full coverage. Current study was also evaluated with a Computer Aided Detection (CAD) system. DENSITY B. There are scattered areas of fibroglandular density. MAMMOGRAPHY FINDINGS Bilateral: No suspicious mass, asymmetry, microcalcification, or other abnormality seen. IMPRESSION: * No evidence of malignancy. RECOMMENDATIONS Bilateral * Annual screening mammography. OVERALL ASSESSMENT CATEGORY BI-RADS-1: Negative. The [employer] recommends annual screening mammography beginning at age 40 for women with average risk of breast cancer. ELECTRONICALLY SIGNED: Angelic Carter M.D. on 08/16/2024 at 07:11:20 AM PT Interpreting Station ID: [id number]
== END ==
PROVIDERS: PCP Student in an Organized Health Care Education/Training Program; Referring Provider Student in an Organized Health Care Education/Training Program; Visit Provider Student in an Organized Health Care Education/Training Program
DX: Z12.31 Encounter for screening mammogram for malignant neoplasm of breast (principal)
CPT/HCPCS: 77063; 77067

== ENCOUNTER → 2024-09-03 09:17 | Outpatient (CLI) | payer MEDICARE, OTHER, SELFPAY ==
[2024-05-11 13:03] VITALS: BMI 29.2
== END ==
LOC: LAB 09:17
PROVIDERS: PCP Student in an Organized Health Care Education/Training Program; Visit Provider Nurse Practitioner Family
DX: N94.89 Other specified conditions associated with female genital organs and menstrual cycle (principal)
CPT/HCPCS: 87210

== ENCOUNTER → 2024-10-05 15:56 | Outpatient (CLI) | payer MEDICARE, OTHER, SELFPAY ==
[2024-05-11 13:03] VITALS: BMI 29.2
== END ==
PROVIDERS: PCP Student in an Organized Health Care Education/Training Program; Visit Provider Family Medicine
DX: N89.8 Other specified noninflammatory disorders of vagina (principal)
CPT/HCPCS: 87210